=== PATIENT | male | born 1940 | race Caucasian/White ===

== ENCOUNTER 2019-07-20 14:38 | Emergency (ER) | payer MEDICARE, SELFPAY ==
[2019-07-20 15:12] VITALS: BP 151/71; PULSE 81; RESP 20; TEMP 36.4; O2SAT 98
--- NOTE | 2019-07-20 15:27 | ED.URI ---
HPI - URI/Sore Throat General Chief Complaint: Upper Respiratory Infection Stated Complaint: SORE THROAT/COUGH Time Seen by Provider: 07/20/19 15:10 Source: patient Mode of arrival: ambulatory Limitations: no limitations History of Present Illness HPI Narrative: Todd Callahan is an 78 yo male with a PMH of COPD, HTN, pbladder CA, renal stones, who comes to the express care for URI symptoms of sinus drainage and cough. 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 He was seen in ER for afib w RVR . no new meds until recorder information analyzed. Related Data Home Medications Medication Instructions Recorded Confirmed aspirin 81 mg tablet,delayed 81 mg PO DAILY 04/04/19 07/20/19 release losartan 50 mg tablet 50 mg PO DAILY 04/04/19 07/20/19 tamsulosin 0.4 mg capsule 0.4 mg PO DAILY 04/04/19 07/20/19 Glucosamine Chondroitin 2 tablet PO DAILY 04/23/19 07/20/19 ascorbic acid (vitamin C) [Vitamin 1 g PO DAILY 04/23/19 07/20/19 C With Chuyita Hips] brimonidine-timolol [Combigan] 1 drp OPHTHALMIC (EYE) BID 04/23/19 07/20/19 multivitamin 1 cap PO DAILY 04/23/19 07/20/19 Allergies Allergy/AdvReac Type Severity Reaction Status Date / Time theophylline Allergy Unknown Palpitation Verified 05/03/19 15:46 s Review of Systems Review of Systems: Narrative: CONSTITUTIONAL: Denies fever, chills, sweats. EYES: Denies visual changes, redness, discharge. ENT:has rhinorrhea, congestion, sore throat, no otalgia. CARDIOVASCULAR: Denies chest pain, palpitations, edema. RESPIRATORY: Denies dyspnea, wheezing, cough GASTROINTESTINAL: Denies abdominal pain, nausea, vomiting, diarrhea. GENITOURINARY: Denies dysuria, hematuria, abnormal discharge SKIN: Denies rash or itching. NEUROLOGIC: Denies numbness, or focal weakness. PSYCHIATRIC: Denies anxiety or depression. [facility] Past Medical History Medical History Abnormal EKG Arthritis BPH (benign prostatic hyperplasia) Depression History of kidney stones Hypertension Shingles Sleep apnea Tachycardia Surgical History Surgical History History of bladder surgery x2 History of colonoscopy Family History Family History Mother Hypertension Family history of malignant neoplasm Family history of heart disease in male family member before age 55 Father Malignant neoplasm of prostate Family history of chronic obstructive pulmonary disease Sibling Family history of chronic obstructive pulmonary disease Social History Social History Smoking status: Former smoker Alcohol intake: never Gender identity (if verbalized by the patient): Male Comments At time of signature, I agree with nursing past medical, surgical, social and family history. There is no relevant family history pertinent to the presenting complaint. Exam Narrative: Exam Narrative: GENERAL: This is a well-nourished, well-developed patient, in no apparent distress. HEAD: normocephalic, atraumatic. EYES: Sclera clear/white. Vision is grossly intact. EARS: External ears normal, auditory canals clear and without drainage, TMs normal without perforation. Bilateral hearing aids -hearing grossly intact. NOSE: External nose normal with no obvious nasal discharge, nares without redness, no rhinorrhea. THROAT: Mucous membranes moist, posterior pharynx erythema NECK: Neck supple, non-tender without lymphadenopathy, CARDIOVASCULAR: Regular rate and rhythm without murmurs, gallops, or rubs. RESPIRATORY: Clear to auscultation. Breath sounds equal bilaterally. No wheezes, rales, or rhonchi. GASTROINTESTINAL: Abdomen soft, non-tender, nondistended. SKIN: warm, intact with no suspicious l
== END 2019-07-20 15:36 | disposition home or self-care (01) ==
PROVIDERS: Emergency Provider Nurse Practitioner; PCP Family Medicine
DX: J40 Bronchitis, not specified as acute or chronic (principal); J44.9 Chronic obstructive pulmonary disease, unspecified; I10 Essential (primary) hypertension; Z85.51 Personal history of malignant neoplasm of bladder; M19.90 Unspecified osteoarthritis, unspecified site; N40.0 Benign prostatic hyperplasia without lower urinary tract symptoms; F32.9 Major depressive disorder, single episode, unspecified; G47.30 Sleep apnea, unspecified; Z87.891 Personal history of nicotine dependence
CPT/HCPCS: 99213; G0463

== ENCOUNTER 2019-08-06 11:35 | Emergency (ER) | payer MEDICARE, SELFPAY ==
--- NOTE | ~2019-08-06 | XR_ITS ---
XR lumbar spine min 4V 08/06/2019 13:18 Indication: Status post fall. Back pain. Procedure: 5 views of the lumbar spine Comparison: No prior studies for comparison. Findings: There are mild superior endplate compression deformities of T12, L1 and L3, age indetermina te. There is loss of disc height at L5-S1. There is facet hypertrophy. There is atherosclerosis of th e aorta. No evidence for spondylolisthesis. Sacral foramen are symmetric. There are calcifications in the upper abdomen, suspicious for pancreatic calcifications. Impression: 1: Age-indeterminate superior endplate compression deformities of T12, L1 and L3. 2: Mild lumbar spondylosis. Reviewed, dictated and finalized at location A. Impression: 1: Age-indeterminate superior endplate compression deformities of T12, L1 and L 3. 2: Mild lumbar spondylosis.
--- NOTE | ~2019-08-06 | CT_ITS ---
EXAMINATION: CT lumbar spine wo con DATE: 08/06/2019 14:13 INDICATION: Low back pain. Fall. TECHNIQUE: Computed tomography (CT) of the lumbar spine was performed without intravenous contrast. A utomated exposure control and iterative reconstruction technique were employed. The dose-length produ ct was 766.22 mGy-cm. COMPARISON: Lumbar spine radiographs 08/06/2019 FINDINGS: Bone alignment is normal. There is a burst fracture of L3 with 1/5 loss of height and retro pulsion of bone 3 mm into central spinal canal. There is mild chronic anterior wedging of T12 and L1 vertebral bodies. The intervertebral disc heights are normal. The following disc levels are specifica lly discussed: L1-L2: The disc is bulging. There is mild bilateral facet joint osteoarthritis. There is no neural fo raminal stenosis. There is no central canal stenosis. L2-L3: The disc is bulging. There is moderate right and mild left facet joint osteoarthritis. There i s mild right neural foraminal stenosis. There is no central canal stenosis. L3-L4: The disc is bulging. There is mild bilateral facet joint osteoarthritis. There is mild bilater al neural foraminal stenosis. There is mild central canal stenosis. L4-L5: The disc is bulging. There is moderate right and mild left facet joint osteoarthritis. There i s mild bilateral neural foraminal stenosis. There is mild central canal stenosis. L5-S1: The disc is bulging. There is moderate right and mild left facet joint osteoarthritis. There i s mild lateral neural foraminal stenosis. There is mild central canal stenosis. IMPRESSION: 1. Acute L3 burst fracture. 2. Mild lumbar spondylosis. Reviewed, dictated and finalized at location A.
[2019-08-06 12:06] VITALS: BP 145/64; PULSE 70; RESP 18; TEMP 36.7; O2SAT 97
[2019-08-06] MEDS: IBUPROFEN 400 MG TABLET PO (13:06)
--- NOTE | 2019-08-06 15:32 | ED.BACK ---
HPI - Back Pain/Injury General Chief Complaint: Back Pain/Injury Stated Complaint: fall last , low back pain Time Seen by Provider: 08/06/19 12:13 Source: patient Mode of arrival: ambulatory Limitations: no limitations History of Present Illness HPI Narrative: Patient presents with chief complaint of right-sided back pain that began on after slipping on a two-step stepladder and hitting his low back. Patient denies any head impact or injury. Patient states that when he ambulates he has radiating pain down his right leg. Patient denies any loss of sensation or range of motion to his lower extremity. Patient denies any loss of bowel or bladder function or saddle paresthesia. Patient denies any pain to his groin or inability to walk. Patient states he has been taking Tylenol and ibuprofen at home for discomfort. Patient states after waking this morning and laying on the right side he noticed an increase in his pain so he felt that he needed to be evaluated. Patient has a primary care of Dr. López. Related Data Home Medications Medication Instructions Recorded Confirmed aspirin 81 mg tablet,delayed 81 mg PO DAILY 04/04/19 07/20/19 release losartan 50 mg tablet 50 mg PO DAILY 04/04/19 07/20/19 tamsulosin 0.4 mg capsule 0.4 mg PO DAILY 04/04/19 07/20/19 Glucosamine Chondroitin 2 tablet PO DAILY 04/23/19 07/20/19 ascorbic acid (vitamin C) [Vitamin 1 g PO DAILY 04/23/19 07/20/19 C With Chuyita Hips] brimonidine-timolol [Combigan] 1 drp OPHTHALMIC (EYE) BID 04/23/19 07/20/19 multivitamin 1 cap PO DAILY 04/23/19 07/20/19 Allergies Allergy/AdvReac Type Severity Reaction Status Date / Time theophylline Allergy Unknown Palpitation Verified 08/06/19 12:23 s Review of Systems Review of Systems: Narrative: CONSTITUTIONAL: Denies fever, chills, or sweats. EYES: Denies visual changes, redness, or discharge. ENT: Denies rhinorrhea, congestion, sore throat, or otalgia. CARDIOVASCULAR: Denies chest pain, palpitations, or edema. RESPIRATORY: Denies cough or dyspnea. GASTROINTESTINAL: Denies abdominal pain, nausea, vomiting, or diarrhea. BACK: Right-sided pain with radiculopathy SKIN: Denies rash or itching. MUSCULOSKELETAL: Denies back pain, joint pain, or myalgia. NEUROLOGIC: Reports radiculopathy right leg denies headache, numbness, dizziness, or weakness. PSYCHIATRIC: Denies anxiety or depression. [facility] Surgical History Surgical History History of bladder surgery x2 History of colonoscopy Social History Social History Smoking status: Former smoker Alcohol intake: never Gender identity (if verbalized by the patient): Male Exam Narrative: Exam Narrative: GENERAL: Well-appearing, well-nourished, and in no acute distress. HEAD: Normocephalic, atraumatic. No outward signs of injury, laceration, abrasion, hematoma. EYES: PERRLA and EOMI. ENT: Nares clear, no rhinorrhea or epistaxis. Mucous membranes moist. Oropharynx without tonsillar hypertrophy exudate or other lesions. Bilateral TMs pearly becerra nonbulging NECK: Supple. No adenopathy or masses. No carotid bruits or JVD CHEST: Clear to auscultation. No respiratory distress. No wheezes rales or rhonchi HEART: Regular rate and rhythm. BACK: No ecchymosis or abrasions or swelling or step-offs palpated. Tenderness to the low back approximately l4. Diffuse tenderness to palpation to lumbar spine down into right gluteus. Patient able to ambulate with steady gait. Straight leg raise test declined. No tenderness into the groin. EXTREMITIES: Normal range of motion. No edema. SKIN: Warm, dry, no rash. NEURO: No focal deficits. Alert and oriented x3. PSYCH: Normal mood and affect. Course Vital Signs Vital signs: Vital Signs Temperature 98.0 F 08/06/19 12:06 Pulse Rate 70 08/06/19 12:06 Respiratory Rate 18 08/06/19 12:06 Blood Pressur
[2019-08-06 16:12] VITALS: BP 145/74; PULSE 80; RESP 20; TEMP 36.7; O2SAT 98
== END 2019-08-06 16:13 | disposition home or self-care (01) ==
PROVIDERS: Emergency Provider Emergency Medicine; PCP Family Medicine
DX: S32.031A Stable burst fracture of third lumbar vertebra, initial encounter for closed fracture (principal); Z87.891 Personal history of nicotine dependence; M47.816 Spondylosis without myelopathy or radiculopathy, lumbar region; W11.XXXA Fall on and from ladder, initial encounter
CPT/HCPCS: 72110; 72131; 99284; A9270

== ENCOUNTER 2020-03-03 11:07 | Outpatient (CLI) | payer MEDICARE, SELFPAY ==
[2020-03-03 11:50] LABS: Basophils Absolute Auto 0.1 K/mm3 (0.0-0.1); Basophils Percent Auto 0.9 % (0.2-1.2); Eosinophils Absolute Auto 0.2 K/mm3 (0-0.3); Eosinophils Percent Auto 2.9 % (0-4.4); Hemoglobin 13.5 g/dL (14.0-18.0); Immature Granulocyte Absolute 0.03 K/mm3 (0.00-0.031); Immature Granulocyte Percent A 0.4 % (0-0.5); Lymphocytes Absolute Auto 1.88 K/mm3 (0.9-3.2); Lymphocytes Percent Auto 23.5 % (18.3-44.2); Mean Corpuscular HGB Conc 32.9 g/dl (32-36); Mean Corpuscular Volume 91.1 fl (80-100); Mean Platelet Volume 9.3 fl (7.4-10.4); Monocytes Absolute Auto 0.9 K/mm3 (0.1-0.6); Neutrophils Absolute Auto 4.9 K/mm3 (1.3-6.7); Neutrophils Percent Auto 61.3 % (45.5-73.1); Platelet Count Result 237 k/mm3 (150-375); Red Cell Distribution Width 12.5 % (11.5-14.5)
[2020-03-03 12:03] LABS: Anion Gap 5 mmol/L (8-16); Blood Urea Nitrogen 17 mg/dL (9-20); Calcium 9.6 mg/dL (8.4-10.2); Carbon Dioxide 36 mmol/L (22-30); Chloride 99 mmol/L (98-107); Estimated Glomerular Filt Rate > 60; Glucose 117 mg/dL (75-110); Potassium 4.4 mmol/L (3.4-5.0); Sodium 140 mmol/L (137-145)
[2020-03-03 12:33] LABS: Prostate Specific Antigen 2.4 ng/mL (< OR = 4.0)
[2020-03-03 13:05] LABS: Free T4 Free Thyroxine 0.93 ng/mL (0.78-2.19)
== END 2020-03-03 11:08 | disposition home or self-care (01) ==
PROVIDERS: PCP Family Medicine; Visit Provider Family Medicine
DX: I10 Essential (primary) hypertension (principal); E03.9 Hypothyroidism, unspecified; N40.0 Benign prostatic hyperplasia without lower urinary tract symptoms; Z12.5 Encounter for screening for malignant neoplasm of prostate
CPT/HCPCS: 36415; 80048; 84153; 84439; 84443; 85025; G0103

== ENCOUNTER 2020-05-23 14:08 | Emergency (ER) | payer MEDICARE, SELFPAY ==
[2020-05-23 14:24] VITALS: BP 116/60; PULSE 56; RESP 14; TEMP 36.2; O2SAT 99
--- NOTE | 2020-05-23 14:34 | ED.HA ---
HPI - Headache General Chief Complaint: Headache Stated Complaint: headache, cough ( being seen for covid symptom Time Seen by Provider: 05/23/20 14:33 History of Present Illness HPI Narrative: Headache, nausea, mild cough for the past few days. SYmptoms mostly resolved at this time. He is concerned because his is suspected of having COVID-19. No SOB, weakness, fever. Related Data Home Medications Medication Instructions Recorded Confirmed aspirin 81 mg tablet,delayed 81 mg PO DAILY 04/04/19 05/20/20 release losartan 50 mg tablet 50 mg PO DAILY 04/04/19 05/20/20 tamsulosin 0.4 mg capsule 0.4 mg PO DAILY 04/04/19 05/20/20 Glucosamine Chondroitin 2 tablet PO DAILY 04/23/19 05/20/20 ascorbic acid (vitamin C) [Vitamin 1 g PO DAILY 04/23/19 05/20/20 C With Chuyita Hips] brimonidine-timolol [Combigan] 1 drp OPHTHALMIC (EYE) BID 04/23/19 05/20/20 multivitamin 1 cap PO DAILY 04/23/19 05/20/20 Allergies Allergy/AdvReac Type Severity Reaction Status Date / Time theophylline Allergy Unknown Palpitation Verified 05/15/20 12:34 s Review of Systems Review of Systems: All systems reviewed & are unremarkable except as noted in HPI and below Constitutional: Constitutional: Denies fever(s) and Denies weakness ENT: Denies sore throat Cardiovascular: Cardiovascular: Denies chest pain Respiratory: Respiratory: Reports cough and Denies dyspnea Gastrointestinal: Gastrointestinal: Denies abdominal pain, Denies diarrhea, Reports nausea and Denies vomiting Genitourinary: Genitourinary: Denies dysuria Neurologic: Denies dizziness PMF Past Medical History Medical History Abnormal EKG Arthritis BMI 30.0-30.9,adult BPH (benign prostatic hyperplasia) Depression Encounter for screening colonoscopy History of kidney stones Hypertension Hypothyroidism MATT (obstructive sleep apnea) Shingles Sleep apnea Tachycardia Surgical History Surgical History History of bladder surgery x2 History of colonoscopy Family History Family History Mother Hypertension Family history of malignant neoplasm Family history of heart disease in male family member before age 55 Father Malignant neoplasm of prostate Family history of chronic obstructive pulmonary disease Sibling Family history of chronic obstructive pulmonary disease Social History Social History Smoking status: Former smoker Tobacco type: cigarettes Alcohol intake: never 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 Gender identity (if verbalized by the patient): Male Exam Const: General: no acute distress and alert Nutritional Appearance: well nourished Orientation/consciousness: patient oriented x3 HENMT: Head: normal to inspection Eyes: Pupils: Equal, round and reactive pupils present Chest: Chest palpation & inspection: normal inspection of the chest Resp: Effort & Inspection: normal respiratory effort Auscultation: wheezes Cardio: Rate: regular rate Rhythm: regular rhythm GI: GI Palp: Yes Soft to palpation and No Tenderness to palpation present (GI) Skin: General skin exam: normal color Rashes: no rashes Neuro: General: patient oriented x3, moves all extremities, no focal motor deficits and CN's II-XI intact bilaterally Speech: normal speech Gait exam (Neuro): Normal gait present Extrem: General: normal to inspection Course Vital Signs Vital signs: Vital Signs Temperature 36.2 C L 05/23/20 14:24 Pulse Rate 56 L 05/23/20 14:24 Respiratory Rate 14 05/23/20 14:24 Blood Pressure 116/60 05/23/20 14:24 Pulse Oximetry 99 05/23/20 14:24 Temperature 36.2 C L 05/23/20 14:24 Pulse Rate 60 05/23/20 15:56 Respiratory Rate 18 05/23/20 15:56
[2020-05-23 15:56] VITALS: BP 118/68; PULSE 60; RESP 18; O2SAT 99
[2020-05-24 19:30] LABS: SARS-CoV-2 RNA PCR Positive
== END 2020-05-23 15:57 | disposition home or self-care (01) ==
PROVIDERS: Emergency Provider Emergency Medicine; PCP Family Medicine
DX: U07.1 COVID-19 (principal); Z79.82 Long term (current) use of aspirin; M19.90 Unspecified osteoarthritis, unspecified site; N40.0 Benign prostatic hyperplasia without lower urinary tract symptoms; Z87.442 Personal history of urinary calculi; I10 Essential (primary) hypertension; E03.9 Hypothyroidism, unspecified; G47.33 Obstructive sleep apnea (adult) (pediatric); Z87.891 Personal history of nicotine dependence
CPT/HCPCS: 87635; 99283; C9803; U0003

== ENCOUNTER 2020-06-09 09:41 | Outpatient (CLI) | payer MEDICARE, SELFPAY ==
--- NOTE | ~2020-06-09 | MR_ITS ---
EXAMINATION: MR brain/brain stem wo con EXAM DATE: 06/09/2020 10:42 INDICATION: Amnesia, memory loss. TECHNIQUE: Magnetic resonance imaging (MRI) of the brain/brain stem obtained without contrast. Jen al T1, axial diffusion, gradient echo (T2*), T1, T2, FLAIR sequences obtained. Correlation is made t o Head CT 04/23/2019 FINDINGS: There is old left basal ganglia lacunar infarction. There are no areas of restricted diffus ion to suggest acute infarction. There is no acute hemorrhage seen on the T2*, a hemosiderin sensiti ve sequence. No intraparenchymal brain mass lesion. There is moderate periventricular and subcortica l T2/FLAIR signal hyperintensity, nonspecific but probably related to small vessel ischemic disease ( microangiopathy). There is moderate prominence of the sulci and ventricles related to cerebral atro phy. There are dilated perivascular spaces. There are no extra-axial collections. Flow voids are se en in the cerebral arteries on the T2-weighted sequences consistent with their expected patency. Pat ient has had bilateral ocular lens surgery. Soft tissue is unremarkable. IMPRESSION: 1. Punctate old left basal ganglia lacunar infarction. 2. Chronic age related findings. Reviewed, dictated and finalized at location B. [employer]
== END 2020-06-09 09:42 | disposition home or self-care (01) ==
LOC: ANHIMG 09:44
PROVIDERS: PCP Family Medicine; Visit Provider Nurse Practitioner Family
DX: R41.3 Other amnesia (principal); R93.0 Abnormal findings on diagnostic imaging of skull and head, not elsewhere classified
CPT/HCPCS: 70551

== ENCOUNTER 2021-01-07 13:25 | Outpatient (CLI) | payer MEDICARE, SELFPAY ==
--- NOTE | ~2021-01-07 | XR_ITS ---
EXAMINATION: XR hip RT 2V w AP pelvis INDICATION: Right hip pain TECHNIQUE: AP view the pelvis and two views of the right hip are obtained. COMPARISON: None available FINDINGS: Bone alignment is normal. There is no fracture. A bone island is noted in the right ilium. There are phleboliths of the left pelvis. There is moderate osteoarthritis of the hips. IMPRESSION: 1. No acute osseous abnormality. Reviewed, dictated and finalized at location B.
== END 2021-01-07 13:26 | disposition home or self-care (01) ==
LOC: ANHIMG 13:28
PROVIDERS: PCP Family Medicine; Visit Provider Nurse Practitioner Family
DX: S79.911A Unspecified injury of right hip, initial encounter (principal)
CPT/HCPCS: 73502

== ENCOUNTER 2021-01-09 09:44 | Emergency (ER) | payer MEDICARE, SELFPAY ==
[2021-01-09] VITALS (9 sets, daily range): BP systolic 134–187; BP diastolic 71–88; PULSE 62–104; RESP 15–20; TEMP 36.6; O2SAT 92–97
--- NOTE | ~2021-01-09 | XR_ITS ---
EXAMINATION: XR hip BI wo pelvis DATE: 01/09/2021 10:12 INDICATION: Bilateral hip pain. Fall. TECHNIQUE: 2 views of the right hip and 2 views of the left hip were obtained. COMPARISON: Pelvis and right hip radiographs 01/07/2021 FINDINGS: Bone alignment is normal. No fracture. There is mild osteoarthritis of the hips. IMPRESSION: 1. Mild osteoarthritis of the hips. Reviewed, dictated and finalized at location A.
--- NOTE | ~2021-01-09 | CT_ITS ---
EXAMINATION: CT abdomen pelvis wo con DATE: 01/09/2021 10:50 INDICATION: Multiple falls. Unable to bear weight, right hip greater than left hip pain TECHNIQUE: Computed tomography (CT) of the abdomen and pelvis was performed without intravenous contr ast. Automated exposure control and iterative reconstruction technique were employed. Exam dose: 682 .16 mGy-cm total exam DLP. COMPARISON: 01/09/2021 bilateral hip FINDINGS: Emphysematous changes are noted in the lower lung zones. Calcified left lower lobe pulmonar y granuloma and calcified left hilar nodes consistent with old pulmonary granulomatous disease.. Ther e is discoid atelectasis or scarring in the lingula. No pericardial or pleural effusion. Small sliding hiatal hernia. There are numerous scattered hepatic hypoattenuating lesions, the largest approximately 1.4 cm, many too small to definitively characterize. There is calcification associated with one of these hypoatten uating lesions near the posterolateral aspect of the hepatic dome. Hepatic cysts are suspected. The gallbladder is present. No bile duct or pancreatic duct dilatation. Normal splenic size. There are numerous pancreatic calcifications consistent with chronic pancreatitis. No pancreatic mass lesion. Possible small adrenal masses, most likely adenomas. Bilateral renal cysts, measuring up to 3.9 cm on the right, 3.8 cm on the left. An approximately 4.5 mm nonobstructing lower pole right renal calculus. Additional pinpoint lower yue e nonobstructing right renal calculus. Contiguous left lower pole 4.5 mm nonobstructing renal calculi. No ureteral calculus or hydroureteronephrosis. There is extensive calcification of the abdominal aorta and iliac arteries. Femoral artery calcificat ions. No abdominal aortic aneurysm. No intraperitoneal or retroperitoneal or pelvic mass lesion or adenopathy or ascites. Bilateral small fat-containing inguinal hernias. Moderate prostate enlargement. The urinary bladder is unremarkable. Diverticulosis of left colon; no CT evidence of diverticulitis. There is a prominent of fecal material in the rectum and colon. No bowel obstruction, bowel wall thic kening, pneumatosis or intraperitoneal free air. 8 mm sclerotic lesion of right side of L4 vertebral body. Approximately 12 mm sclerotic lesion of right iliac bone. The L4 and right iliac sclerotic lesion may be bone islands. Differential diagnosis includes osteoscl erotic metastatic disease from prostate cancer. Bone scan may be helpful to differentiate these possi bilities as clinically appropriate. No suspicious osteolytic or osteoblastic lesions are noted otherwise. Mild anterior wedge compression fracture deformities of T11, T12, L1. Moderately severe burst fracture deformity of L3. Mild burst fracture deformity of L4. IMPRESSION: Mild anterior wedge compression fracture deformities of T11, T12, L1 Prominent burst fracture of L3 Mild burst fracture of L4 Sclerotic lesions of the L4 vertebral body and right iliac bone, possibly bone islands. Differential diagnosis includes osseous chronic prostate metastases. Emphysema Small sliding hiatal hernia Numerous scattered hypoattenuating lesions of the liver, possibly cysts. Chronic pancreatitis Bilateral renal cysts Bilateral nonobstructive nephrolithiasis Moderate prostate enlargement Diverticulosis of the colon Reviewed, dictated and finalized at Location A. Reviewed, dictated and finalized at location A.
--- NOTE | 2021-01-09 10:32 | ECG_ITS ---
Measurements Intervals [place] Rate: 59 P: 77 [place]: 156 QRS: 40 QRSD: 81 T: 56 QT: 424 QTc: 422 Interpretive Statements SINUS BRADYCARDIA CANNOT RULE OUT SEPTAL INFARCT, AGE INDETERMINATE BASELINE WANDER- V1-V2 ABNORMAL ECG Electronically Signed On 01-09-2021 11:10:24 CDT by Holden Del Rosario D.O.
--- NOTE | 2021-01-09 10:40 | PC.NURSE ---
Pt in CT at this time
--- NOTE | 2021-01-09 10:48 | ED.FALL ---
HPI - Fall General Chief Complaint: Fall Stated Complaint: fall Time Seen by Provider: 01/09/21 09:54 History of Present Illness HPI Narrative: Presents after a fall 3 days ago. Patient marys she was on a slope lost his balance and struck a tree. Ports he hit his low back and right hip. Since then he has had increasing hip pain and occasionally his legs will give out causing him to fall again. Denies striking his head during any of these falls denies any loss of consciousness. Reports his primary area of pain is along his bilateral hips right greater than left achy, constant, worse with trying to lift his legs. He saw his primary care doctor yesterday had plain films which were negative however his pain was getting worse reports he is unable to ambulate today so he came in for evaluation. Related Data Home Medications Medication Instructions Recorded Confirmed aspirin 81 mg tablet,delayed 81 mg PO DAILY 04/04/19 01/08/21 release losartan 50 mg tablet 50 mg PO DAILY 04/04/19 01/08/21 tamsulosin 0.4 mg capsule 0.4 mg PO DAILY 04/04/19 01/08/21 ascorbic acid (vitamin C) [Vitamin 1 g PO DAILY 04/23/19 01/08/21 C With Chuyita Hips] brimonidine-timolol [Combigan] 1 drp OPHTHALMIC (EYE) BID 04/23/19 01/08/21 multivitamin 1 cap PO DAILY 04/23/19 01/08/21 prednisone 10 mg tablet 10 mg PO DAILY 01/08/21 01/08/21 Allergies Allergy/AdvReac Type Severity Reaction Status Date / Time theophylline Allergy Unknown Palpitation Verified 01/09/21 09:57 s Review of Systems Review of Systems: CONSTITUTIONAL: Denies fever, chills, or sweats. EYES: Denies visual changes, redness, or discharge. ENT: Denies rhinorrhea, congestion, sore throat, or otalgia. CARDIOVASCULAR: Denies chest pain, palpitations, or edema. RESPIRATORY: Denies cough or dyspnea. GASTROINTESTINAL: Denies abdominal pain, nausea, vomiting, or diarrhea. GENITOURINARY: Denies dysuria or hematuria. SKIN: Denies rash or itching. MUSCULOSKELETAL: Denies myalgia. NEUROLOGIC: Denies headache, numbness, dizziness, or weakness. PSYCHIATRIC: Denies anxiety or depression. [facility] Past Medical History Medical History Abnormal EKG Arthritis BMI 30.0-30.9,adult BPH (benign prostatic hyperplasia) Depression Encounter for screening colonoscopy History of kidney stones Hypertension Hypothyroidism Multiple renal calculi MATT (obstructive sleep apnea) Shingles Sleep apnea Tachycardia Surgical History Surgical History History of bladder surgery x2 History of colonoscopy Hx of hernia repair Family History Family History Mother Hypertension Family history of malignant neoplasm Family history of heart disease in male family member before age 55 Father Malignant neoplasm of prostate Family history of chronic obstructive pulmonary disease Sibling Family history of chronic obstructive pulmonary disease Social History Social History Tobacco type: cigarettes Alcohol intake: never Substance use: never Substance use type: does not use 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 HEAD: Normocephalic, atraumatic. EYES: PERRLA and EOMI. ENT: Nares clear, no rhinorrhea or epistaxis. Mucous membranes moist. NECK: Supple. No masses. No JVD ABDOMEN: Soft, nontender, nondistended, normal active bowel sounds. EXTREMITIES: Normal range of motion. No edema. Moderate tenderness palpation on the right greater trochanter of the femur minimal tenderness palpation on the left greater trochanter no obvious deformities no open or draining wounds this lower extremity is neurovascularly
[2021-01-09] MEDS: SODIUM CHLORIDE 0.9% IV 500 ML 999 ML IV CONT (11:03)
[2021-01-09] MEDS: KETOROLAC 15 MG/ML VIAL (*BKC) IV PUSH (11:03)
[2021-01-09 11:37] LABS: Add Urine Microscopic? NO; Appearance Urine Clear (Clear); Bilirubin Urine Negative (Negative); Blood Urine Negative (Negative); Color Urine Straw (Yellow); Glucose Urine UA Negative (Negative); Ketones Urine Negative (Negative); Leukocyte Esterase Ur Negative LEU/UL (Negative); Nitrate Urine Negative (Negative); Protein Urine Negative (Negative); Urobilinogen Urine Negative mg/dL (<2.0)
[2021-01-09 11:48] LABS: Basophils Percent Auto 0.2 % (0.2-1.2); Eosinophils Absolute Auto 0.1 K/mm3 (0-0.3); Eosinophils Percent Auto 0.4 % (0-4.4); Hematocrit 41.6 % (42.0-52.0); Hemoglobin 13.1 g/dL (14.0-18.0); Immature Granulocyte Absolute 0.11 K/mm3 (0.00-0.031); Immature Granulocyte Percent A 0.9 % (0-0.5); Lymphocytes Absolute Auto 1.03 K/mm3 (0.9-3.2); Lymphocytes Percent Auto 8.6 % (18.3-44.2); Mean Corpuscular HGB Conc 31.5 g/dl (32-36); Mean Corpuscular Hemoglobin 29.4 pg (26-34); Mean Corpuscular Volume 93.3 fl (80-100); Mean Platelet Volume 9.4 fl (7.4-10.4); Monocytes Absolute Auto 1.5 K/mm3 (0.1-0.6); Monocytes Percent Auto 12.7 % (2.6-8.5); Neutrophils Absolute Auto 9.2 K/mm3 (1.3-6.7); Neutrophils Percent Auto 77.2 % (45.5-73.1); Platelet Count Result 245 k/mm3 (150-375); Red Blood Count 4.46 M/mm3 (4.6-6.20); Red Cell Distribution Width 13.2 % (11.5-14.5); White Blood Count 11.9 K/mm3 (4.5-10.0)
[2021-01-09 11:58] LABS: INR 0.9; Prothrombin Time 12.3 Seconds (11.1-14.7)
[2021-01-09 12:03] LABS: Alanine Aminotransferase 28 U/L (4-50); Albumin Level 3.4 g/dL (3.5-5.1); Alkaline Phosphatase 70 U/L (38-126); Anion Gap 1 mmol/L (8-16); Aspartate Amino Transferase 34 U/L (17-59); Bilirubin,Total 0.8 mg/dL (0.2-1.3); Blood Urea Nitrogen 18 mg/dL (9-20); Calcium 8.8 mg/dL (8.4-10.2); Carbon Dioxide 33 mmol/L (22-30); Chloride 99 mmol/L (98-107); Estimated CRCL calculation 66 ml/min; Estimated Glomerular Filt Rate > 60; Glucose 107 mg/dL (65-110); Potassium 4.2 mmol/L (3.4-5.0); Sodium 133 mmol/L (137-145)
[2021-01-09] MEDS: MORPHINE SULFATE (*CRX) 4 MG/ML INJ IV PUSH ×2 (13:06→15:16)
[2021-01-09] MEDS: ONDANSETRON INJ 4 MG/2 ML VIAL IV PUSH (13:06)
[2021-01-09] MEDS: oxyCODONE/ACETAMINOPHEN (*CRX) 5-325 MG TABLET 1 TABLET PO (16:32)
== END 2021-01-09 19:01 | disposition short-term general hospital (02) ==
PROVIDERS: Emergency Provider Emergency Medicine; PCP Family Medicine
DX: S32.001A Stable burst fracture of unspecified lumbar vertebra, initial encounter for closed fracture (principal); F32.9 Major depressive disorder, single episode, unspecified; I10 Essential (primary) hypertension; E03.9 Hypothyroidism, unspecified; G47.33 Obstructive sleep apnea (adult) (pediatric); F17.210 Nicotine dependence, cigarettes, uncomplicated; W01.10XA Fall on same level from slipping, tripping and stumbling with subsequent striking against unspecified object, initial encounter
CPT/HCPCS: 36415; 73521; 74176; 80053; 81003; 85025; 85610; 85730; 93005; 96361; 96374; 96375; 96376; 99285; A9270; J1885; J2270; J2405; J7040

== ENCOUNTER 2021-02-05 19:34 | Emergency (ER) | payer MEDICARE, SELFPAY ==
--- NOTE | ~2021-02-05 | CT_ITS ---
EXAMINATION: CT abdomen pelvis wo con DATE: 02/05/2021 21:18 INDICATION: Urinary retention. TECHNIQUE: Computed tomography (CT) of the abdomen and pelvis was performed without intravenous contr ast. The dose-length product was 210.14 mGy-cm. Automated exposure control and iterative reconstructi on technique were employed. COMPARISON: CT dated 01/09/2021. FINDINGS: Right lower lobe airspace consolidation. Given that this is new since 01/09/2021 this is lik esha pneumonia rather than pulmonary mass. Heart size normal. No significant pleural or pericardial ef fusion. There are several low-density lesions in the liver, not well characterized without contrast. Consider follow-up CT abdomen with contrast on a nonemergent basis. The spleen, adrenal glands are unremarkab le. There are nonobstructing renal stones. There are low-density lesions in both kidneys, most likely cysts. Gallbladder is present. There is chronic pancreatitis. Nonobstructive bowel gas pattern. Fole y catheter present in the bladder. There is gas in the bladder. Sclerotic lesion in the right ilium. There are compression fractures of L3 and L4. The L4 fracture has progressed since prior examination. Blastic lesion of L4. Colonic diverticulosis without evidence for diverticulitis. IMPRESSION: 1. Interval development of right lower lobe consolidation, most likely pneumonia. Malignancy less fav ored given the short-term interval development. 2: Blastic lesions of the right ilium and L4. Cannot exclude metastatic disease. Compression fracture s of L3 and L4 with progression of L4 fracture since prior study. 3: Nonobstructing bilateral nephrolithiasis. 4: Chronic pancreatitis. Reviewed, dictated and finalized at location A. IMPRESSION: 1. Interval development of right lower lobe consolidation, most likely pneumoni a. Malignancy less favored given the short-term interval development. 2: Blastic lesions of the right ilium and L4. Cannot exclude metastatic disease . Compression fractures of L3 and L4 with progression of L4 fracture since prio r study. 3: Nonobstructing bilateral nephrolithiasis. 4: Chronic pancreatitis.
[2021-02-05 19:39] VITALS: BP 139/77; PULSE 72; RESP 18; TEMP 35.9; O2SAT 94
--- NOTE | 2021-02-05 20:52 | ED.GENADULT ---
HPI - General Adult General Chief complaint: Urogenital-Male Stated complaint: metzger issues Time Seen by Provider: 02/05/21 20:41 History of Present Illness HPI narrative: Patient 80-year-old gentleman who presents the emergency department with chief complaint of decreased urine output. They changed a catheter out at home after he had noticed a low output from his Metzger catheter when the catheter was changed the patient had no significant increased output of urination but did have some small amount of blood-tinged urine. The patient reports no pain denies nausea or vomiting or diarrhea reports that he has been drinking and eating his normal amount. Related Data Home Medications Medication Instructions Recorded Confirmed aspirin 81 mg tablet,delayed 81 mg PO DAILY 04/04/19 02/05/21 release tamsulosin 0.4 mg capsule 0.4 mg PO DAILY 04/04/19 02/05/21 Combigan 1 drp OPHTHALMIC (EYE) BID 04/23/19 02/05/21 multivitamin 1 cap PO DAILY 04/23/19 02/05/21 Glucosamine Complex 1 cap PO DAILY 01/20/21 02/05/21 acetaminophen 650 mg PO Q6H PRN 01/20/21 02/05/21 albuterol sulfate [ProAir HFA] 2 puff INHALATION Q4H PRN 01/20/21 02/05/21 furosemide 40 mg PO DAILY 01/20/21 02/05/21 polyethylene glycol 3350 17 g PO DAILY 01/20/21 02/05/21 Allergies Allergy/AdvReac Type Severity Reaction Status Date / Time theophylline Allergy Unknown Palpitation Verified 02/05/21 12:45 s Review of Systems Review of Systems: A 10 system review of systems was completed on the patient and is negative except for what is stated in the HPI. Nursing and ancillary documentation was reviewed. [facility] Past Medical History Medical History Abnormal EKG Arthritis Atrial flutter BMI 30.0-30.9,adult BPH (benign prostatic hyperplasia) Depression Encounter for screening colonoscopy History of kidney stones Hypertension Hypothyroidism Multiple renal calculi MATT (obstructive sleep apnea) Shingles Sleep apnea Sundowning Sundowning Tachycardia Surgical History Surgical History History of bladder surgery x2 History of colonoscopy Hx of hernia repair Family History Family History Mother Hypertension Family history of malignant neoplasm Family history of heart disease in male family member before age 55 Father Malignant neoplasm of prostate Family history of chronic obstructive pulmonary disease Sibling Family history of chronic obstructive pulmonary disease Social History Social History Smoking packs per day: 1 Smoking cigarettes per day: 20.0 Years smoked: 20 Smoking pack-years: 20.00 Smoking status: Former smoker Tobacco type: cigarettes Second hand tobacco smoke exposure: Yes Alcohol intake: never Substance use: never Substance use type: does not use 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 HEAD: Normocephalic, atraumatic. EYES: PERRLA and EOMI. ENT: Nares clear, no rhinorrhea or epistaxis. Mucous membranes moist. NECK: Supple. CHEST: Clear to auscultation. No respiratory distress. HEART: Regular rate and rhythm. No murmur heard. Normal peripheral pulses. ABDOMEN: Soft, nontender, nondistended, normal active bowel sounds. EXTREMITIES: Normal range of motion. No edema. SKIN: Warm, dry, no rash. NEURO: No focal deficits. Alert and oriented x3. PSYCH: Normal mood and affect. Course Course Emergency Course: Patient's laboratory studies showed evidence of UTI and possible pneumonia. The patient also does show some possible blastic lesions in the pelvis and also at the L4 compress
[2021-02-05 21:12] LABS: Basophils Absolute Auto 0.1 K/mm3 (0.0-0.1); Basophils Percent Auto 0.7 % (0.2-1.2); Eosinophils Absolute Auto 0.1 K/mm3 (0-0.3); Hematocrit 36.2 % (42.0-52.0); Hemoglobin 11.4 g/dL (14.0-18.0); Immature Granulocyte Absolute 0.06 K/mm3 (0.00-0.031); Immature Granulocyte Percent A 0.7 % (0-0.5); Lymphocytes Absolute Auto 1.71 K/mm3 (0.9-3.2); Lymphocytes Percent Auto 19.2 % (18.3-44.2); Mean Corpuscular HGB Conc 31.5 g/dl (32-36); Mean Corpuscular Volume 92.1 fl (80-100); Mean Platelet Volume 8.4 fl (7.4-10.4); Monocytes Absolute Auto 1.3 K/mm3 (0.1-0.6); Monocytes Percent Auto 15.1 % (2.6-8.5); Neutrophils Absolute Auto 5.6 K/mm3 (1.3-6.7); Neutrophils Percent Auto 63.3 % (45.5-73.1); Platelet Count Result 438 k/mm3 (150-375); Red Blood Count 3.93 M/mm3 (4.6-6.20); Red Cell Distribution Width 12.8 % (11.5-14.5); White Blood Count 8.9 K/mm3 (4.5-10.0)
[2021-02-05 21:23] LABS: Alanine Aminotransferase 88 U/L (4-50); Albumin Level 3.1 g/dL (3.5-5.1); Alkaline Phosphatase 134 U/L (38-126); Anion Gap 6 mmol/L (8-16); Aspartate Amino Transferase 85 U/L (17-59); Bilirubin,Total 0.3 mg/dL (0.2-1.3); Blood Urea Nitrogen 18 mg/dL (9-20); Calcium 8.7 mg/dL (8.4-10.2); Carbon Dioxide 32 mmol/L (22-30); Chloride 94 mmol/L (98-107); Estimated CRCL calculation 58 ml/min; Estimated Glomerular Filt Rate > 60; Glucose 122 mg/dL (65-110); Potassium 3.8 mmol/L (3.4-5.0); Sodium 132 mmol/L (137-145)
[2021-02-05] MEDS: SODIUM CHLORIDE 0.9% IV 1,000 ML 999 ML IV CONT (21:25)
[2021-02-05 21:39] LABS: Add Urine Microscopic? YES; Appearance Urine Cloudy (Clear); Bacteria Urine Trace /hpf; Bilirubin Urine Negative (Negative); Blood Urine 3+ (Negative); Color Urine Red (Yellow); Glucose Urine UA Negative (Negative); Ketones Urine Negative (Negative); Leukocyte Esterase Ur 2+ LEU/UL (Negative); Mucus Urine Few /lpf; Nitrate Urine Negative (Negative); Protein Urine 2+ mg/dL (Negative); RBC Urine >75 /hpf (0-2); Specific Grav Ur 1.024 (1.001-1.035); Squamous Epithelial Cell Urine Few /hpf (Few); Urobilinogen Urine Negative mg/dL (<2.0); WBC Urine >75 /hpf
[2021-02-05] MEDS: levoFLOXacin 500 MG TABLET PO (22:45)
[2021-02-05 23:06] VITALS: BP 146/86; PULSE 81; RESP 16; O2SAT 94
== END 2021-02-05 23:06 | disposition home or self-care (01) ==
PROVIDERS: Emergency Provider Emergency Medicine; PCP Family Medicine
DX: N39.0 Urinary tract infection, site not specified (principal); J18.9 Pneumonia, unspecified organism; I48.92 Unspecified atrial flutter; N40.0 Benign prostatic hyperplasia without lower urinary tract symptoms; E03.9 Hypothyroidism, unspecified; G47.33 Obstructive sleep apnea (adult) (pediatric); F05 Delirium due to known physiological condition; M19.90 Unspecified osteoarthritis, unspecified site; Z87.442 Personal history of urinary calculi; Z79.82 Long term (current) use of aspirin; Z79.01 Long term (current) use of anticoagulants; Z87.891 Personal history of nicotine dependence; K86.1 Other chronic pancreatitis; N20.0 Calculus of kidney; M48.56XA Collapsed vertebra, not elsewhere classified, lumbar region, initial encounter for fracture; M89.9 Disorder of bone, unspecified
CPT/HCPCS: 36415; 74176; 80053; 81001; 85025; 87077; 87086; 87088; 87186; 96360; 99284; A9270; J7030

== ENCOUNTER 2021-06-05 14:14 | Emergency (ER) | payer MEDICARE, SELFPAY ==
[2021-06-05 14:21] VITALS: BP 174/78; PULSE 111; RESP 18; TEMP 36.3; O2SAT 96
--- NOTE | 2021-06-05 14:41 | ED.MALEGU ---
HPI - Male Genitourinary General Chief complaint: Urogenital-Male Stated complaint: not producing much urine, has catheter in place Time Seen by Provider: 06/05/21 14:33 Source: patient Mode of arrival: ambulatory Limitations: no limitations History of Present Illness HPI Narrative: Patient is an 80-year-old male complaining of his Mendoza catheter not draining started today. Patient states that the Mendoza catheter was just replaced with a new one today by home health nurse. Patient states that while he was in the waiting room it started to drain. Patient has no other complaints. Related Data Home Medications Medication Instructions Recorded Confirmed aspirin 81 mg tablet,delayed 81 mg PO DAILY 04/04/19 02/05/21 release tamsulosin 0.4 mg capsule 0.4 mg PO DAILY 04/04/19 02/05/21 Combigan 1 drp OPHTHALMIC (EYE) BID 04/23/19 02/05/21 multivitamin 1 cap PO DAILY 04/23/19 02/05/21 Glucosamine Complex 1 cap PO DAILY 01/20/21 02/05/21 acetaminophen 650 mg PO Q6H PRN 01/20/21 02/05/21 albuterol sulfate [ProAir HFA] 2 puff INHALATION Q4H PRN 01/20/21 02/05/21 furosemide 40 mg PO DAILY 01/20/21 02/05/21 polyethylene glycol 3350 17 g PO DAILY 01/20/21 02/05/21 Allergies Allergy/AdvReac Type Severity Reaction Status Date / Time theophylline Allergy Unknown Palpitation Verified 02/05/21 12:45 s Review of Systems Review of Systems: All systems reviewed & are unremarkable except as noted in HPI and below Constitutional: Constitutional: Denies body ache(s), Denies chills, Denies excessive sweating, Denies fatigue, Denies fever(s), Denies headache(s), Denies lethargy, Denies malaise, Denies weakness and Denies weight loss Eyes: Eyes: Denies blurry vision, Denies change in vision and Denies loss of vision ENT: Denies dizziness, Denies ear discharge, Denies headache(s), Denies lip swelling, Denies epistaxis, Denies nasal congestion, Denies neck pain, Denies throat swelling and Denies tongue swelling Cardiovascular: Cardiovascular: Denies chest pain, Denies chest pain at rest, Denies chest pain with activity, Denies diaphoresis, Denies rapid heart rate, Denies edema, Denies irregular heart rhythm, Denies lightheadedness, Denies palpitations, Denies dyspnea and Denies dyspnea on exertion Respiratory: Respiratory: Denies chest congestion, Denies cough, Denies hemoptysis, Denies dyspnea and Denies dyspnea on exertion Gastrointestinal: Gastrointestinal: Denies abdominal pain, Denies melena, Denies hematochezia, Denies diarrhea, Denies nausea, Denies vomiting and Denies hematemesis Musculoskeletal: Musculoskeletal: Denies abnormal gait, Denies deformity, Denies joint swelling, Denies limited range of motion, Denies neck pain and Denies numbness Neurologic: Denies Abnormal speech present, Denies abnormal gait, Denies confusion, Denies dizziness, Denies headache(s), Denies focal weakness, Denies loss of vision, Denies numbness, Denies Other visual disturbances, Denies Sensory deficit (Neuro) and Denies weakness Psychiatric: Psychiatric: Denies confusion, Denies depression, Denies auditory hallucinations, Denies homicidal ideation and Denies suicidal ideation Endocrine: Endocrine: Denies cold intolerance, Denies excessive sweating, Denies fatigue, Denies heat intolerance and Denies palpitations Hematologic/Lymphatic: Hematologic/Lymphatic: Denies easy bleeding and Denies easy bruising Allergic/Immunologic: Allergic/Immunologic: Denies lip swelling, Denies throat swelling and Denies tongue swelling PMFSH Past Medical History Medical History Abnormal EKG Arthritis Atrial flutter BMI 30.0-30.9,adult BPH (benign prostatic hyperplasia) Depression Encounter for screening colonoscopy History of kidney stones Hypertension Hypothyroidism Multiple renal calculi MATT (obstructive sleep apnea) Shingles Sleep apnea Sundowning Sundowning Tachycardia Surgical History Surgical History (Review
[2021-06-05 16:03] LABS: Add Urine Microscopic? YES; Appearance Urine Clear (Clear); Bilirubin Urine Negative (Negative); Blood Urine 1+ (Negative); Color Urine Yellow (Yellow); Glucose Urine UA Negative (Negative); Ketones Urine Negative (Negative); Leukocyte Esterase Ur 1+ LEU/UL (Negative); Mucus Urine Rare /lpf; Nitrate Urine Negative (Negative); Protein Urine Negative (Negative); Specific Grav Ur 1.009 (1.001-1.035); Urobilinogen Urine Negative mg/dL (<2.0); WBC Urine 21-30 /hpf
[2021-06-05 16:50] VITALS: BP 135/88; PULSE 88; RESP 19; O2SAT 97
== END 2021-06-05 16:50 | disposition home or self-care (01) ==
PROVIDERS: Emergency Provider Emergency Medicine; PCP Family Medicine
DX: T83.9XXA Unspecified complication of genitourinary prosthetic device, implant and graft, initial encounter (principal); N39.0 Urinary tract infection, site not specified
CPT/HCPCS: 81001; 87086; 99283

== ENCOUNTER 2021-06-29 09:12 | Inpatient (IN) | payer MEDICARE, SELFPAY ==
[2021-06-29] VITALS (50 sets, daily range): BP systolic 96–129; BP diastolic 45–92; PULSE 78–155; RESP 14–25; TEMP 36.4–36.9; O2SAT 90–99; BMI 27.3
--- NOTE | ~2021-06-29 | XR_ITS ---
EXAMINATION: XR chest 2V DATE: 06/29/2021 09:56 INDICATION: Weakness. Internal bleeding. TECHNIQUE: frontal and lateral views of the chest were obtained. COMPARISON: Chest radiograph dated 04/23/[address] dated 08/10/2018 FINDINGS: Emphysema with chronic bullous changes and pleural parenchymal scarring at the bilateral apices. Calc ified nodule at the left lung base and calcified mediastinal lymph nodes consistent with old granulom atous disease. Mild linear atelectasis/scarring at the lingula best appreciated in the lateral projec tion. No other airspace opacities, pulmonary edema, pleural effusion or pneumothorax. The cardiomedia stinal silhouette is normal. Coronary artery calcification versus stenting. Mild thoracic spondylosis with chronic mild anterior wedging of a few mid and lower thoracic vertebral bodies. Couple old righ t rib fractures. IMPRESSION: 1. Emphysema with chronic scarring at the lingula and bilateral apices. Reviewed, dictated and finalized at location A. AGING OPERATOR
--- NOTE | 2021-06-29 09:17 | ECG_ITS ---
Measurements Intervals [place] Rate: 89 P: 80 [place]: 180 QRS: 41 QRSD: 68 T: 74 QT: 328 QTc: 401 Interpretive Statements SINUS RHYTHM CANNOT RULE OUT SEPTAL INFARCT, AGE INDETERMINATE BORDERLINE ST-T WAVE ABNORMALITY- DIFFUSE LEADS BASELINE WANDER- II, III ABNORMAL ECG Electronically Signed On 06-29-2021 11:31:31 WHEEL ALIGNMENT TECHNICIAN by Holden Del Rosario D.O.
[2021-06-29 09:37] LABS: Basophils Absolute Auto 0.1 K/mm3 (0.0-0.1); Basophils Percent Auto 0.6 % (0.2-1.2); Eosinophils Percent Auto 0.1 % (0-4.4); Hematocrit 34.6 % (42.0-52.0); Hemoglobin 10.8 g/dL (14.0-18.0); Immature Granulocyte Absolute 0.07 K/mm3 (0.00-0.031); Immature Granulocyte Percent A 0.6 % (0-0.5); Lymphocytes Absolute Auto 1.07 K/mm3 (0.9-3.2); Lymphocytes Percent Auto 9.4 % (18.3-44.2); Mean Corpuscular HGB Conc 31.2 g/dl (32-36); Mean Corpuscular Volume 92.8 fl (80-100); Mean Platelet Volume 9.8 fl (7.4-10.4); Monocytes Absolute Auto 0.7 K/mm3 (0.1-0.6); Monocytes Percent Auto 6.4 % (2.6-8.5); Neutrophils Absolute Auto 9.4 K/mm3 (1.3-6.7); Neutrophils Percent Auto 82.9 % (45.5-73.1); Platelet Count Result 292 k/mm3 (150-375); Red Blood Count 3.73 M/mm3 (4.6-6.20); Red Cell Distribution Width 13.8 % (11.5-14.5); White Blood Count 11.4 K/mm3 (4.5-10.0)
--- NOTE | 2021-06-29 09:40 | ED.WEAKNESS ---
HPI - Weakness General Chief complaint: Weakness <Casie Raymond PA-C - Last Filed: 06/29/21 11:04> Stated complaint: FEELING ILL <CLAUDE Kapoor Last Filed: 06/29/21 11:04> Time Seen by Provider: 06/29/21 09:18 <Casie Raymond PA-C - Last Filed: 06/29/21 11:04> Source: patient and EMS <CLAUDE Kapoor Last Filed: 06/29/21 11:04> Mode of arrival: EMS <CLAUDE Kapoor Last Filed: 06/29/21 11:04> Limitations: other (hearing impairment) <CLAUDE Kapoor Last Filed: 06/29/21 11:04> History of Present Illness HPI Narrative: This is a 80 year old male that presents to the ER for dark stools present since yesterday. Also reports an episode of vomiting today with coffee ground emesis. He is currently on Coumadin for atrial fibrillation. Reports nausea. Denies fever, chest pain, shortness of breath, or abdominal pain. <CLAUDE Kapoor Last Filed: 06/29/21 11:04> Related Data Home medications: Home Medications Medication Instructions Recorded Confirmed aspirin 81 mg tablet,delayed 81 mg PO DAILY 04/04/19 06/29/21 release tamsulosin 0.4 mg capsule 0.4 mg PO DAILY 04/04/19 06/29/21 Combigan 1 drp OPHTHALMIC (EYE) BID 04/23/19 02/05/21 multivitamin 1 cap PO DAILY 04/23/19 02/05/21 Glucosamine Complex 1 cap PO DAILY 01/20/21 02/05/21 acetaminophen 650 mg PO Q6H PRN 01/20/21 02/05/21 albuterol sulfate [ProAir HFA] 2 puff INHALATION Q4H PRN 01/20/21 02/05/21 furosemide 40 mg PO DAILY 01/20/21 06/29/21 polyethylene glycol 3350 17 g PO DAILY 01/20/21 02/05/21 <CLAUDE Kapoor Last Filed: 06/29/21 11:04> Allergies/Adverse reactions: Allergies Allergy/AdvReac Type Severity Reaction Status Date / Time theophylline Allergy Unknown Palpitation Verified 02/05/21 12:45 s <Casie Raymond PA-C - Last Filed: 06/29/21 11:04> Review of Systems Review of Systems: CONSTITUTIONAL: Denies fever CARDIOVASCULAR: Denies chest pain, or edema. RESPIRATORY: Denies dyspnea. GASTROINTESTINAL: Reports nausea, vomiting and diarrhea. Denies abdominal pain <Casie Raymond PA-C - Last Filed: 06/29/21 11:04> All systems reviewed & are unremarkable except as noted in HPI and below <Casie Raymond PA-C - Last Filed: 06/29/21 11:04> [facility] Past Medical History Medical History: Medical History (Updated 06/29/21 @ 13:32 by Emmanuel Smith MD) Abnormal EKG Arthritis Atrial flutter Bladder spasms BMI 30.0-30.9,adult BPH (benign prostatic hyperplasia) Depression Emphysema lung Encounter for screening colonoscopy History of kidney stones Hypertension Hypothyroidism Multiple renal calculi MATT (obstructive sleep apnea) Shingles Sleep apnea owning Sundowning Tachycardia <Casie Raymond PA-C - Last Filed: 06/29/21 11:04> Surgical History Surgical History: Surgical History History of bladder surgery x2 History of colonoscopy Hx of hernia repair <Casie Raymond PA-C - Last Filed: 06/29/21 11:04> Family History Family History: Family History Mother Hypertension Family history of malignant neoplasm Family history of heart disease in male family member before age 55 Father Malignant neoplasm of prostate Family history of chronic obstructive pulmonary disease Sibling Family history of chronic obstructive pulmonary disease <Casie Raymond PA-C - Last Filed: 06/29/21 11:04> Social History Social History: Social History Social History: w quit rr 2c Smoking packs per day: 1 Smoking cigarettes per day: 20.0 Years smoked: 20 Smoking pack-years: 20.00 Smoking status: Former smoker Tobacco type: cigarettes Second hand tobacco smoke exposure: Yes Alcohol intake: never Substance us
[2021-06-29 09:48] LABS: INR 2.6; Partial Thromboplastin Time 30.8 SECONDS (22.3-36.8); Prothrombin Time 26.8 Seconds (11.1-14.7)
[2021-06-29 09:49] LABS: Alanine Aminotransferase 21 U/L (4-50); Alkaline Phosphatase 67 U/L (38-126); Anion Gap 5 mmol/L (8-16); Aspartate Amino Transferase 26 U/L (17-59); Bilirubin,Total 0.4 mg/dL (0.2-1.3); Blood Urea Nitrogen 51 mg/dL (9-20); Calcium 10.1 mg/dL (8.4-10.2); Carbon Dioxide 30 mmol/L (22-30); Chloride 105 mmol/L (98-107); Estimated CRCL calculation 48 ml/min; Estimated Glomerular Filt Rate > 60; Glucose 179 mg/dL (65-110); Potassium 4.1 mmol/L (3.4-5.0); Sodium 140 mmol/L (137-145)
--- NOTE | 2021-06-29 09:57 | PC.NURSE ---
pt.received 1 L NS IV from EMS bag. sintia ERP rafy
[2021-06-29] MEDS: METOPROLOL TARTRATE INJ 5 MG/5 ML VIAL IV PUSH (10:04)
[2021-06-29 10:05] LABS: Troponin I 0.015 ng/mL (0.000-0.034)
[2021-06-29 10:16] LABS: Add Urine Microscopic? YES; Appearance Urine Clear (Clear); Bacteria Urine Trace /hpf; Bilirubin Urine Negative (Negative); Blood Urine 1+ (Negative); Calcium Oxalate Crystals Urine Present /hpf; Color Urine Yellow (Yellow); Glucose Urine UA Negative (Negative); Ketones Urine Trace mg/dL (Negative); Leukocyte Esterase Ur Negative LEU/UL (Negative); Mucus Urine Rare /lpf; Nitrate Urine Negative (Negative); Protein Urine Negative (Negative); Specific Grav Ur 1.019 (1.001-1.035); Squamous Epithelial Cell Urine Rare /hpf (Few); Urobilinogen Urine Negative mg/dL (<2.0)
--- NOTE | 2021-06-29 10:51 | ECG_ITS ---
Measurements Intervals [place] Rate: 118 P: 58 [place]: 164 QRS: -3 QRSD: 77 T: 75 QT: 363 QTc: 509 Interpretive Statements SINUS TACHYCARDIA VENTRICULAR PREMATURE COMPLEX ANTEROSEPTAL INFARCT, AGE INDETERMINATE ST-T WAVE ABNORMALITY IN ANTEROLATERAL LEADS- CONSIDER ISCHEMIA ABNORMAL ECG Electronically Signed On 06-29-2021 11:23:17 DECOMMISSIONING WELL SITE MANAGER by Hloden Del Rosario D.O.
[2021-06-29 11:29] LABS: SARS-CoV-2 RNA PCR Negative
--- NOTE | 2021-06-29 12:51 | PC.NURSE ---
Pt. requesting medications for RICE. ERP notified.
--- NOTE | 2021-06-29 13:21 | WPDGICN ---
Assessment and Plan Assessment and plan (1) Acute GI bleeding: Code(s): K92.2 - Gastrointestinal hemorrhage, unspecified Status: Acute Assessment and Plan: he began seeing black tarry stools 3 days ago. He has been on Coumadin for several months for what he states is atrial fibrillation. The chart indicates atrial flutter. He denies any prior history of ulcers or GI bleeding. Will need to reverse his INR, or least let it drift below 1.8 before we can do endoscopy without risk of bleeding. (2) Hematemesis: Code(s): K92.0 - Hematemesis Status: Acute Assessment and Plan: he had 1 episode of emesis of coffee-ground material early this morning. He denies having difficulty with swallowing. He denies chronic heartburn. He states that he has lost weight and his appetite has dropped off (3) Atrial flutter: Qualifiers: Atrial flutter type: unspecified Qualified Code(s): I48.92 - Unspecified atrial flutter Code(s): I48.92 - Unspecified atrial flutter Status: Acute Assessment and Plan: EKG today shows sinus rhythm. He has been on Coumadin and his INR is therapeutic (4) Emphysema lung: Code(s): J43.9 - Emphysema, unspecified Status: Chronic (5) Multiple renal calculi: Code(s): N20.0 - Calculus of kidney Status: Inactive Assessment and Plan: over the last several years he had had multiple admissions for renal calculi. 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 I would like to give him some vitamin K to help lower his INR in order to proceed with EGD GI Consult Note Consult date/time: 06/29/21 13:21 HPI: Todd Callahan is a 80 year old male Present to the emergency room this morning complaining of weakness. Also he vomited dark material that looked like coffee grounds. He states that since Tuesday he has been passing black stools. He has not had abdominal pain but admits that his appetite has not been very good lately. He thinks he has lost some weight. He denies dysphagia and denies heartburn. He does not think that he has ever had an ulcer. He does not take any NSAIDs. He is on Coumadin for atrial fibrillation which she states was diagnosed not too long ago . He has never had colon problems such as colitis polyps or diverticulitis. He had are hernia repair with mesh placed a couple of years ago. Review of Systems Review of Systems: All systems reviewed & are unremarkable except as noted in HPI and below PMFSH Past Medical History Medical History (Updated 06/29/21 @ 13:32 by Emmanuel Smith MD) Abnormal EKG Arthritis Atrial flutter Bladder spasms BMI 30.0-30.9,adult BPH (benign prostatic hyperplasia) Depression Emphysema lung Encounter for screening colonoscopy History of kidney stones Hypertension Hypothyroidism Multiple renal calculi MATT (obstructive sleep apnea) Shingles Sleep apnea Sundowning Sundowning Tachycardia Surgical History Surgical History History of bladder surgery x2 History of colonoscopy Hx of hernia repair Family History Family History Mother Hypertension Family history of malignant neoplasm Family history of heart disease in male family member before age 55 Father Malignant neoplasm of prostate Family history of chronic obstructive pulmonary disease Sibling Family history of chronic obstructive pulmonary disease Social History Social History Social History: w quit rr 2c Smoking packs per day: 1 Smoking cigarettes per day: 20.0 Years smoked: 20 Smoking pack-years: 20.00 Smoking status: Former smoker
--- NOTE | 2021-06-29 13:23 | PM.IMHP ---
H&P: HPI History of Present Illness Date/Time: 06/29/21 13:23 this is a 80-year-old male patient who has a history of atrial fibrillation versus atrial flutter and has been on Coumadin for several months. The patient came in today with complaints of tarry stools for the last 3 days. GI has been consulted and recommended that either the INR be reversed or diff down to 1.8 prior to endoscopy. The patient had a coffee-ground emesis early this morning. His H&H was initially 10.834.6 it is now 9.0 and 28.8. The patient was given IV Lopressor in the emergency room and Rocephin. He was also started on IV Protonix. The patient recently was treated for UTI and had been on on Macrobid and therefore he was switched to Rocephin for his urinary tract infection. The patient is being admitted to observation status date of service 06/29/2021. Chief Complaint: GI bleed Review of Systems Review of Systems: All systems reviewed & are unremarkable except as noted in HPI and below Constitutional: Constitutional: Reports as per HPI and Reports no additional constitutional complaints Eyes: Eyes: Reports as per HPI and Reports no additional eye complaints ENT: Reports system reviewed and no additional complaints, except as documented and Reports Normal hearing present Cardiovascular: Cardiovascular: Reports no additional cardiovascular complaints Respiratory: Respiratory: Reports no additional respiratory complaints and Reports no additional respiratory complaints Gastrointestinal: Gastrointestinal: Reports as per HPI and Reports no additional gastrointestinal complaints Musculoskeletal: Musculoskeletal: Reports no additional musculoskeletal complaints Integumentary/Breasts: Skin/Breast: Reports system reviewed and no additional complaints, except as docu and Reports as per HPI Neurologic: Reports system reviewed and no additional complaints, except as documented, Reports as per HPI and Reports Normal hearing present Psychiatric: Psychiatric: Reports no additional psychiatric complaints and Reports as per HPI Endocrine: Endocrine: Reports no additional endocrine complaints Hematologic/Lymphatic: Hematologic/Lymphatic: Reports no additional hematologic/lymphatic complaints Allergic/Immunologic: Allergic/Immunologic: Reports no additional allergic/immunologic complaints [facility] Past Medical History Medical History (Updated 06/29/21 @ 16:10 by Cyndy Barrera NP) Abnormal EKG Arthritis Atrial flutter Bladder spasms BMI 30.0-30.9,adult BPH (benign prostatic hyperplasia) Depression Emphysema lung Encounter for screening colonoscopy History of kidney stones Hypertension Hypothyroidism Multiple renal calculi MATT (obstructive sleep apnea) Shingles Sleep apnea Sundowning Sundowning Tachycardia Surgical History Surgical History History of bladder surgery x2 History of colonoscopy Hx of hernia repair Family History Family History Mother Hypertension Family history of malignant neoplasm Family history of heart disease in male family member before age 55 Father Malignant neoplasm of prostate Family history of chronic obstructive pulmonary disease Sibling Family history of chronic obstructive pulmonary disease Social History Social History (Updated 06/29/21 @ 15:54 by Cyndy Barrera NP) Social History: THE PATIENT LIVES WITH HIS . The patient quit smoking many years ago. He is retired from the [employer]. He has 2 children. The is the durable power insurance attorney for healthcare. Code status DNR Smoking packs per day: 1 Smoking cigarettes per day: 20.0 Years smoked: 20 Smoking pack-years: 20.00 Smoking status: Former smoker Tobacco type: cigarettes Second hand tobacco smoke exposure: Yes Alcohol intake: never Substance use: never Substance use type: does
[2021-06-29] MEDS: PHYTONADIONE 5 MG TABLET PO (14:20)
[2021-06-29 14:37] LABS: Hematocrit 28.8 % (42.0-52.0)
[2021-06-29 14:47] LABS: INR 2.6; Prothrombin Time 27.5 Seconds (11.1-14.7)
[2021-06-29] MEDS: PANTOPRAZOLE SODIUM IV 40 MG VIAL IV PUSH ×2 (15:14→21:58)
--- NOTE | 2021-06-29 16:47 | PC.NURSE ---
call pt. Klaudia w/ updates.
[2021-06-29 19:01] LABS: Hematocrit 25.8 % (42.0-52.0); Hemoglobin 8.2 g/dL (14.0-18.0)
--- NOTE | 2021-06-29 19:18 | PC.NURSE ---
called KELLY Barrera, informed of decreasing H&H. STATED TO CALL AFTER NEXT LAB DRAW, WILL HAVE TO TRANSFUSE IF BELOW 7
--- NOTE | 2021-06-29 20:25 | ADMGEN ---
This patient, Todd Callahan, was admitted to Medical Room 247-. Patient/family oriented to hospital policies and general routines including ID bracelet, bed and alarms, visiting hours, pain management, procedures, bathroom and other care routines, personal items, smoking policy, room service/diet, and visiting hours. Information on how to activate the Rapid Response Team has been discussed. Patient/Family are encouraged to report perceived risks to care and to ask questions if they do not understand what they are told or what they should do.
[2021-06-29] MEDS: DIGOXIN INJ 250 MCG/ML 2 ML AMP (*BKC) 125 MCG IV PUSH ×2 (23:18→23:45)
[2021-06-29] MEDS: ACETAMINOPHEN 325 MG TABLET 650 MG PO (23:21)
[2021-06-29] MEDS: SODIUM CHLORIDE 0.9% IV 500 ML IV CONT (23:47)
[2021-06-30] VITALS (29 sets, daily range): BP systolic 88–133; BP diastolic 48–80; PULSE 65–145; RESP 16–22; TEMP 35.9–36.9; O2SAT 94–100
[2021-06-30 00:06] LABS: Hematocrit 24.2 % (42.0-52.0); Hemoglobin 7.8 g/dL (14.0-18.0)
[2021-06-30 00:22] LABS: Troponin I 0.022 ng/mL (0.000-0.034)
--- NOTE | 2021-06-30 00:47 | PC.NURSE ---
MOHSEN OROURKE NP IN ROOM ASSESSING PT. WILL PUT IN ORDERS. HR REMAINS IN 150'S
--- NOTE | 2021-06-30 01:04 | PC.NURSE ---
REPORT CALLED TO JASON PIZANO AND PT TRANSFERRED TO ROOM 214 PER BED. NOTIFIED
--- NOTE | 2021-06-30 01:18 | PC.NURSE ---
This patient, Todd Callahan, was received from [[id number] ] on 06/30/21 at 0118. Patient/family oriented to unit policies and routines
[2021-06-30] MEDS: AMIODARONE 360 MG/D5W 200 ML 360 MG/200 ML BAG 33.33 MG IV CONT (02:19)
--- NOTE | 2021-06-30 02:43 | PC.NURSE ---
On 06/30/[address] Richards for patient bp 89/50 with heart rate of 135. Instructed to continue to hang amiodorone drip as ordered.
[2021-06-30 04:33] LABS: IFOB Positive Control Positive; Immunochemical Fecal Occult Bl Positive (N)
[2021-06-30 04:55] LABS: Basophils Percent Auto 0.3 % (0.2-1.2); Eosinophils Percent Auto 0.1 % (0-4.4); Immature Granulocyte Absolute 0.07 K/mm3 (0.00-0.031); Immature Granulocyte Percent A 0.5 % (0-0.5); Lymphocytes Absolute Auto 2.12 K/mm3 (0.9-3.2); Lymphocytes Percent Auto 16.6 % (18.3-44.2); Mean Corpuscular HGB Conc 31.1 g/dl (32-36); Mean Corpuscular Hemoglobin 29.1 pg (26-34); Mean Corpuscular Volume 93.7 fl (80-100); Mean Platelet Volume 10.2 fl (7.4-10.4); Monocytes Absolute Auto 1.1 K/mm3 (0.1-0.6); Monocytes Percent Auto 8.9 % (2.6-8.5); Neutrophils Absolute Auto 9.4 K/mm3 (1.3-6.7); Neutrophils Percent Auto 73.6 % (45.5-73.1); Platelet Count Result 213 k/mm3 (150-375); Red Blood Count 2.23 M/mm3 (4.6-6.20); Red Cell Distribution Width 14.2 % (11.5-14.5); White Blood Count 12.8 K/mm3 (4.5-10.0)
[2021-06-30 05:00] LABS: Hemoglobin 6.5 g/dL (14.0-18.0)
[2021-06-30 05:01] LABS: Hematocrit 20.9 % (42.0-52.0)
[2021-06-30] MEDS: TUBING, BLOOD PLUM PUMP TUBING 1 EACH XX (05:05)
[2021-06-30] MEDS: SODIUM CHLORIDE 0.9% IV 250 ML 30 ML IV CONT (05:05)
[2021-06-30 05:09] LABS: INR 2.7; Prothrombin Time 27.6 Seconds (11.1-14.7)
[2021-06-30 05:10] LABS: Partial Thromboplastin Time 34.4 SECONDS (22.3-36.8)
[2021-06-30 05:12] LABS: Alanine Aminotransferase 18 U/L (4-50); Albumin Level 3.2 g/dL (3.5-5.1); Alkaline Phosphatase 50 U/L (38-126); Anion Gap 5 mmol/L (8-16); Aspartate Amino Transferase 25 U/L (17-59); Bilirubin,Total 0.3 mg/dL (0.2-1.3); Blood Urea Nitrogen 52 mg/dL (9-20); Carbon Dioxide 26 mmol/L (22-30); Chloride 109 mmol/L (98-107); Estimated CRCL calculation 52 ml/min; Estimated Glomerular Filt Rate > 60; Glucose 163 mg/dL (65-110); Lactate Dehydrogenase 301 U/L (313-618); Magnesium 1.8 mg/dL (1.6-2.3); Potassium 3.8 mmol/L (3.4-5.0); Sodium 140 mmol/L (137-145)
[2021-06-30 05:15] LABS: Lactic Acid Reflex 2.2 mmol/L (0.7-2.1)
[2021-06-30 05:42] LABS: Hemoglobin A1C 6.2 % (<5.7)
[2021-06-30 07:52] LABS: Reflex Lactic Acid Yes or No Add Lactic
[2021-06-30] MEDS: AMIODARONE 360 MG/D5W 200 ML 360 MG/200 ML BAG 16.67 MG IV CONT ×2 (07:54→17:27)
[2021-06-30] MEDS: traMADol HCL (*CRX) 50 MG TABLET PO (07:57)
[2021-06-30] MEDS: DIGOXIN TAB 125 MCG TABLET PO (07:58)
[2021-06-30] MEDS: CITALOPRAM HYDROBROMIDE 20 MG TABLET PO (07:59)
[2021-06-30] MEDS: METOPROLOL SUCCINATE EXT REL 100 MG TABCR 200 MG PO (07:59)
[2021-06-30] MEDS: LORATADINE 10 MG TABLET PO (07:59)
[2021-06-30] MEDS: FUROSEMIDE 40 MG TABLET PO (07:59)
[2021-06-30] MEDS: MULTIVITAMINS THERAPEUTIC TAB (*BKC) 1 TABLET PO (07:59)
[2021-06-30] MEDS: TAMSULOSIN HCL 0.4 MG CAPSULE PO (07:59)
[2021-06-30] MEDS: GABAPENTIN 300 MG CAPSULE PO (07:59)
[2021-06-30] MEDS: PANTOPRAZOLE SODIUM IV 40 MG VIAL IV PUSH ×2 (08:00→20:42)
[2021-06-30 09:08] LABS: Lactic Acid 2.6 mmol/L (0.7-2.1)
--- NOTE | 2021-06-30 10:42 | PCRCNOTE ---
Window of time for administration has passed. See next scheduled administration.
[2021-06-30 15:46] LABS: Hematocrit 27.8 % (42.0-52.0); Hemoglobin 9.1 g/dL (14.0-18.0)
--- NOTE | 2021-06-30 18:28 | PM.IMPN ---
Progress Note: A&P Assessment and Plan (1) Acute GI bleeding: Code(s): K92.2 - Gastrointestinal hemorrhage, unspecified Status: Acute Assessment and Plan: GI has been consulted. For now we were hold his Coumadin. His INR is 2.6. Will do a daily PT INR. GI has seen the patient and recommended that the INR be less than 1.8 prior to any endoscopies. Will continue to monitor H&H every 6 hours. Stool for occult blood. Daily PT INR. Continue with IV Pepcid. Patient has also been on an aspirin so will hold the aspirin and the Coumadin. The patient has been on Coumadin for the atrial fibrillation/atrial flutter. GI has been consulted. Continue with PPI. Type crossmatch and transfuse when necessary. 06/30/2021 Interval history: patient is 80-year-old male with history of atrial fibrillation chronically anticoagulated with warfarin presented with anemia stool Hemoccult is positive concerning for GI bleed, patient is given vitamin K to reverse INR GI would like to be below 1.8 before doing EGD to further evaluate source of bleeding, currently patient is feeling better denies any abdominal pain nausea or vomiting or any bleeding, will continue to monitor INR today's 2.7. (2) Atrial flutter: Qualifiers: Atrial flutter type: unspecified Qualified Code(s): I48.92 - Unspecified atrial flutter Code(s): I48.92 - Unspecified atrial flutter Status: Acute Assessment and Plan: The patient currently is in sinus rhythm. We are holding Coumadin for now with daily PT INR. Continue with his anti rhythmic said he takes from home. It looks like he may be on digoxin and metoprolol. (3) Hypertension: Qualifiers: Hypertension type: essential hypertension Qualified Code(s): I10 - Essential (primary) hypertension Code(s): I10 - Essential (primary) hypertension Status: Chronic Assessment and Plan: Continue with home medication it looks like he may be on metoprolol. (4) Enlarged prostate without lower urinary tract symptoms (luts): Code(s): N40.0 - Benign prostatic hyperplasia without lower urinary tract symptoms Status: Acute Assessment and Plan: Continue with tamsulosin (5) MATT (obstructive sleep apnea): Code(s): G47.33 - Obstructive sleep apnea (adult) (pediatric) Status: Acute Assessment and Plan: Auto titrate CPAP here. (6) Hypothyroidism: Qualifiers: Hypothyroidism type: acquired Qualified Code(s): E03.9 - Hypothyroidism, unspecified Code(s): E03.9 - Hypothyroidism, unspecified Status: Acute Assessment and Plan: Check thyroid level continue with home medications. (7) Depression: Code(s): F32.9 - Major depressive disorder, single episode, unspecified Status: Chronic Assessment and Plan: Continue with home medications. Additional Plan Patient was recently treated with antibiotics for UTI. Urine cultures are pending here. I did not restart the Rocephin as his last cultures from earlier this month of the urine were negative. Subjective Date/time seen: 06/30/21 18:28 06/30/2021 Interval history: patient is 80-year-old male with history of atrial fibrillation chronically anticoagulated with warfarin presented with anemia stool Hemoccult is positive concerning for GI bleed, patient is given vitamin K to reverse INR GI would like to be below 1.8 before doing EGD to further evaluate source of bleeding, currently patient is feeling better denies any abdominal pain nausea or vomiting or any bleeding, will continue to monitor INR today's 2.7. Review of Systems Review of Systems: All systems reviewed & are unremarkable except as noted in HPI and below Exam Narrative: Patient is comfortable, NAD HEENT: eyes are clear and none icteric LUNGS: normal respiratory effort ABD: not distended Lower extremities: no edema SKIN: nonjaundiced Neuro: grossly intact. Objective D
[2021-06-30] MEDS: FLUTICASONE/SALMETEROL 115-21 MCG INHALER 1 PUFF 2 PUFF INHALATION (20:31)
[2021-06-30] MEDS: ATORVASTATIN 20 MG TABLET PO (20:42)
[2021-07-01] VITALS (28 sets, daily range): BP systolic 105–144; BP diastolic 39–69; PULSE 68–115; RESP 16–21; TEMP 36.1–37.1; O2SAT 90–100
[2021-07-01] MEDS: AMIODARONE 360 MG/D5W 200 ML 360 MG/200 ML BAG 16.67 MG IV CONT (05:52)
[2021-07-01 07:30] LABS: INR 2.1; Prothrombin Time 23.2 Seconds (11.1-14.7)
--- NOTE | 2021-07-01 08:36 | P.CDI_ITS ---
CDI Query Clarification Request - presented with anemia, stool Hemoccult is positive and EGD to further evaluate source of bleeding documented. Anemia is not on the problem list. -Coffee ground emesis and tarry stools documented. Acute UGI bleed documented. -06/29 H&H10.8/34.6 on arrival, 06/30 H&H 6.5/20.9. Two units of blood transfused. Please further specify type/cause and acuity of anemia: * Acute blood loss anemia * Acute anemia of other cause * Chronic anemia * Acute blood loss anemia on chronic anemia * Acute anemia of other cause on chronic anemia * Other * Unable to determine <Ariane Vergara RN - Last Filed: 07/01/21 08:53> Clarified Diagnosis (1) Anemia: Qualifiers: Anemia type: unspecified type Qualified Code(s): D64.9 - Anemia, unspecified <Ariaen Vergara RN - Last Filed: 07/01/21 08:53> Code(s): D64.9 - Anemia, unspecified <Ariane Vergara RN - Last Filed: 07/01/21 08:53> Status: Acute <Ariane Vergara RN - Last Filed: 07/01/21 08:53> Assessment and Plan: Acute blood loss anemia <Valerie Stearns MD - Last Filed: 07/08/21 18:40>
[2021-07-01] MEDS: TUBING, BLOOD PLUM PUMP TUBING 1 EACH XX (10:00)
[2021-07-01] MEDS: FLUTICASONE/SALMETEROL 115-21 MCG INHALER 1 PUFF 2 PUFF INHALATION ×2 (10:28→22:38)
--- NOTE | 2021-07-01 10:45 | WPDANESEPPF ---
Anes - Initial Pre Proc Eval Procedure: Operation Date: 07/01/21 10:45 Proposed Procedures p Esophagogastroduodenoscopy - Emmanuel Smith MD Date/Time: 07/01/21 10:45 Surgeon: Sherly Villagomez MD Pre Op Diagnosis: gi gleed Patient Data Age: 80 Gender: M Height: 1.7 m Weight: 79.2 kg Last Vital Signs Temp 36.8 C 07/01/21 10:23 Pulse 89 07/01/21 10:23 Resp 20 07/01/21 10:23 BP 141/51 H 07/01/21 10:23 Pulse Ox 97 07/01/21 10:23 Allergies Allergy/AdvReac Type Severity Reaction Status Date / Time theophylline Allergy Unknown Palpitation Verified 02/05/21 12:45 s Home Medications Medication Instructions Recorded Confirmed Type aspirin 81 mg tablet,delayed 81 mg PO DAILY 04/04/19 06/29/21 History release brimonidine-timolol [Combigan] 1 drp OPHTHALMIC (EYE) BID 04/23/19 06/29/21 History multivitamin 1 cap PO DAILY 04/23/19 06/29/21 History fexofenadine 180 mg tablet 180 mg PO DAILY #90 tablet 01/29/20 06/29/21 Rx Glucosamine Complex 2 cap PO DAILY 01/20/21 06/29/21 History acetaminophen 650 mg PO Q6H PRN 01/20/21 06/29/21 History albuterol sulfate [ProAir HFA] 2 puff INHALATION Q4H PRN 01/20/21 06/29/21 History furosemide 40 mg PO DAILY 01/20/21 06/29/21 History budesonide-formoterol [Symbicort] 2 puff INHALATION Q12H #1 g 01/30/21 06/29/21 Rx digoxin 125 mcg PO QAM #30 tablet 01/30/21 06/29/21 Rx melatonin 3 mg PO HS PRN #30 tablet 01/30/21 06/29/21 Rx metoprolol succinate [Toprol XL] 200 mg PO QAM #30 tablet 01/30/21 06/29/21 Rx tramadol 50 mg PO Q6H PRN #20 tablet 01/30/21 06/29/21 Rx warfarin 2 mg tablet See Rx Instructions .ROUTE 05/28/21 06/29/21 Rx .COMPLEX #60 tablet tamsulosin 0.4 mg capsule 0.4 mg PO .COMPLEX #30 cap 06/16/21 06/29/21 Rx atorvastatin 20 mg PO HS 06/29/21 06/29/21 History citalopram 20 mg PO DAILY 06/29/21 06/29/21 History gabapentin [Neurontin] 300 mg PO BID 06/29/21 06/29/21 History Laboratory Tests 06/29/21 06/30/21 07/01/21 09:27 15:09 07:00 Hgb 9.1 g/dL L g/dL (14.0-18.0) Hct 27.8 % L % (42.0-52.0) PT 23.2 Seconds H Seconds (11.1-14.7) INR 2.1 Blood Type A Positive Antibody Screen Negative Crossmatch See Detail Patient hx anesthesia problems: none Family hx anesthesia problems: none Results Review: All pre-operative results and documents have been reviewed as part of the pre-operative evaluation. [facility] Past Medical History Medical History Abnormal EKG Arthritis Atrial flutter Bladder spasms BMI 30.0-30.9,adult BPH (benign prostatic hyperplasia) Depression Emphysema lung Encounter for screening colonoscopy History of kidney stones Hypertension Hypothyroidism Multiple renal calculi MATT (obstructive sleep apnea) Shingles Sleep apnea Sundowning Sundowning Tachycardia Surgical History Surgical History History of bladder surgery x2 History of colonoscopy Hx of hernia repair Family History Family History Mother Hypertension Family history of malignant neoplasm Family history of heart disease in male family member before age 55 Father Malignant neoplasm of prostate Family history of chronic obstructive pulmonary disease Sibling Family history of chronic obstructive pulmonary disease Social History Social History Social History: THE PATIENT LIVES WITH HIS . The patient quit smoking many years ago. 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 He has 2 children. 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 Code status DNR Smoking packs per day: 1 Smoking cigarettes per day: 20.0 Years smoked: 20 Smoking pack-years: 20.00 Smoking status: Former smoker T
[2021-07-01] MEDS: LACTATED RINGERS 1,000 ML 150 ML IV CONT (10:49)
[2021-07-01 13:13] LABS: Glucose Point of Care 163 mg/dl (65-105)
--- NOTE | 2021-07-01 15:39 | PM.IMPN ---
Progress Note: A&P Assessment and Plan (1) Acute GI bleeding: Code(s): K92.2 - Gastrointestinal hemorrhage, unspecified Status: Acute Assessment and Plan: GI has been consulted. For now we were hold his Coumadin. His INR is 2.6. Will do a daily PT INR. GI has seen the patient and recommended that the INR be less than 1.8 prior to any endoscopies. Will continue to monitor H&H every 6 hours. Stool for occult blood. Daily PT INR. Continue with IV Pepcid. Patient has also been on an aspirin so will hold the aspirin and the Coumadin. The patient has been on Coumadin for the atrial fibrillation/atrial flutter. GI has been consulted. Continue with PPI. Type crossmatch and transfuse when necessary. 06/30/2021 Interval history: patient is 80-year-old male with history of atrial fibrillation chronically anticoagulated with warfarin presented with anemia stool Hemoccult is positive concerning for GI bleed, patient is given vitamin K to reverse INR GI would like to be below 1.8 before doing EGD to further evaluate source of bleeding, currently patient is feeling better denies any abdominal pain nausea or vomiting or any bleeding, will continue to monitor INR today's 2.7. 07/01/2021 Interval history: patient is 80-year-old male with history of atrial fibrillation chronically anticoagulated with warfarin presented with anemia stool Hemoccult is positive concerning for GI bleed, patient was given vitamin K to reverse INR GI would like to be below 1.8 before doing EGD, patient had a EGD and showed ulcer with bleeding the lesion was cauterized, will monitor H&H, currently patient is feeling better denies any abdominal pain nausea or vomiting or any bleeding, (2) Atrial flutter: Qualifiers: Atrial flutter type: unspecified Qualified Code(s): I48.92 - Unspecified atrial flutter Code(s): I48.92 - Unspecified atrial flutter Status: Acute Assessment and Plan: The patient currently is in sinus rhythm. We are holding Coumadin for now with daily PT INR. Continue with his anti rhythmic said he takes from home. It looks like he may be on digoxin and metoprolol. (3) Hypertension: Qualifiers: Hypertension type: essential hypertension Qualified Code(s): I10 - Essential (primary) hypertension Code(s): I10 - Essential (primary) hypertension Status: Chronic Assessment and Plan: Continue with home medication it looks like he may be on metoprolol. (4) Enlarged prostate without lower urinary tract symptoms (luts): Code(s): N40.0 - Benign prostatic hyperplasia without lower urinary tract symptoms Status: Acute Assessment and Plan: Continue with tamsulosin (5) MATT (obstructive sleep apnea): Code(s): G47.33 - Obstructive sleep apnea (adult) (pediatric) Status: Acute Assessment and Plan: Auto titrate CPAP here. (6) Hypothyroidism: Qualifiers: Hypothyroidism type: acquired Qualified Code(s): E03.9 - Hypothyroidism, unspecified Code(s): E03.9 - Hypothyroidism, unspecified Status: Acute Assessment and Plan: Check thyroid level continue with home medications. (7) Depression: Code(s): F32.9 - Major depressive disorder, single episode, unspecified Status: Chronic Assessment and Plan: Continue with home medications. Additional Plan Patient was recently treated with antibiotics for UTI. Urine cultures are pending here. I did not restart the Rocephin as his last cultures from earlier this month of the urine were negative. Subjective Date/time seen: 07/01/21 15:39 06/30/2021 Interval history: patient is 80-year-old male with history of atrial fibrillation chronically anticoagulated with warfarin presented with anemia stool Hemoccult is positive concerning for GI bleed, patient is given vitamin K to reverse INR GI would like to be below 1.8 before doing EGD to further evaluate source of
[2021-07-01 16:32] LABS: Glucose Point of Care 147 mg/dl (65-105)
[2021-07-01] MEDS: METOPROLOL SUCCINATE EXT REL 100 MG TABCR 200 MG PO (17:56)
[2021-07-01] MEDS: TAMSULOSIN HCL 0.4 MG CAPSULE PO (17:56)
[2021-07-01] MEDS: ASPIRIN 81 MG ENTERIC TABLET PO (17:58)
[2021-07-01] MEDS: DIGOXIN TAB 125 MCG TABLET PO (18:01)
[2021-07-01] MEDS: GABAPENTIN 300 MG CAPSULE PO (18:01)
[2021-07-01] MEDS: LORATADINE 10 MG TABLET PO (18:01)
[2021-07-01] MEDS: MULTIVITAMINS THERAPEUTIC TAB (*BKC) 1 TABLET PO (18:01)
[2021-07-01] MEDS: CITALOPRAM HYDROBROMIDE 20 MG TABLET PO (18:02)
[2021-07-01] MEDS: FUROSEMIDE 40 MG TABLET PO (18:02)
[2021-07-01] MEDS: PANTOPRAZOLE SODIUM IV 40 MG VIAL IV PUSH ×2 (18:02→22:15)
[2021-07-01] MEDS: SODIUM CHLORIDE 0.9% IV 250 ML 30 ML (18:03)
[2021-07-01] MEDS: ATORVASTATIN 20 MG TABLET PO (22:14)
[2021-07-02] VITALS (26 sets, daily range): BP systolic 82–120; BP diastolic 31–73; PULSE 58–83; RESP 16–22; TEMP 35.7–37.6; O2SAT 92–100
[2021-07-02 05:25] LABS: Mean Corpuscular HGB Conc 31.6 g/dl (32-36); Mean Corpuscular Hemoglobin 30.5 pg (26-34); Mean Corpuscular Volume 96.3 fl (80-100); Mean Platelet Volume 10.6 fl (7.4-10.4); Platelet Count Result 140 k/mm3 (150-375); Red Blood Count 1.64 M/mm3 (4.6-6.20); Red Cell Distribution Width 14.8 % (11.5-14.5); White Blood Count 9.9 K/mm3 (4.5-10.0)
[2021-07-02 05:30] LABS: Hematocrit 15.8 % (42.0-52.0)
[2021-07-02 05:42] LABS: Anion Gap 3 mmol/L (8-16); Blood Urea Nitrogen 23 mg/dL (9-20); Carbon Dioxide 31 mmol/L (22-30); Chloride 107 mmol/L (98-107); Estimated CRCL calculation 58 ml/min; Estimated Glomerular Filt Rate > 60; Glucose 131 mg/dL (65-110); Potassium 2.8 mmol/L (3.4-5.0); Sodium 141 mmol/L (137-145)
[2021-07-02] MEDS: POTASSIUM CHLORIDE INJ 40 MEQ in SODIUM CHLORIDE 0.9% IV 500 ML 130 MEQ IVPB ×2 (06:28→18:34)
[2021-07-02 07:33] LABS: INR 1.4; Prothrombin Time 16.9 Seconds (11.1-14.7)
[2021-07-02] MEDS: SODIUM CHLORIDE 0.9% IV 250 ML 30 ML IV CONT (08:30)
[2021-07-02] MEDS: TUBING, BLOOD PLUM PUMP TUBING 1 EACH XX ×2 (08:30→12:35)
[2021-07-02] MEDS: FLUTICASONE/SALMETEROL 115-21 MCG INHALER 1 PUFF 2 PUFF INHALATION ×2 (08:38→21:29)
--- NOTE | 2021-07-02 09:22 | WPDANESEFPP ---
Anes - Eval Final PreProcedure Day of Procedure 07/02/21 09:22 Patient weight: overweight Heart: regular rate and rhythm Lungs: clear to auscultation Airway: Mallampati scale class II Neurological: alert and oriented Last oral intake: >/= 8 hours ASA classification: IV Emergent: no Anesthetic plan: proceed Anesthesia type and monitoring: general GIVS and standard monitoring Results Review: All pre-operative results and documents have been reviewed as part of the pre-operative evaluation. Informed Consent: The patient's anesthetic plan and its attendant risks and benefits were discussed with the patient/family/POA. Questions were solicited and answers provided to the satisfaction of the patient/family/POA.
[2021-07-02] MEDS: LACTATED RINGERS 1,000 ML 150 ML IV CONT (09:54)
[2021-07-02] MEDS: SODIUM CHLORIDE 0.9% IV 250 ML 30 ML (12:36)
[2021-07-02] MEDS: PANTOPRAZOLE SODIUM IV 40 MG VIAL IV PUSH ×2 (13:48→21:33)
[2021-07-02] MEDS: GABAPENTIN 300 MG CAPSULE PO ×2 (13:48→18:34)
[2021-07-02] MEDS: ASPIRIN 81 MG ENTERIC TABLET PO (13:48)
[2021-07-02] MEDS: MULTIVITAMINS THERAPEUTIC TAB (*BKC) 1 TABLET PO (13:48)
[2021-07-02] MEDS: DIGOXIN TAB 125 MCG TABLET PO (13:49)
[2021-07-02] MEDS: CITALOPRAM HYDROBROMIDE 20 MG TABLET PO (13:49)
[2021-07-02] MEDS: FUROSEMIDE 40 MG TABLET PO (13:49)
[2021-07-02] MEDS: LORATADINE 10 MG TABLET PO (13:49)
[2021-07-02] MEDS: TAMSULOSIN HCL 0.4 MG CAPSULE PO (13:49)
[2021-07-02 17:33] LABS: Hematocrit 23.3 % (42.0-52.0); Hemoglobin 7.5 g/dL (14.0-18.0); Mean Corpuscular HGB Conc 32.2 g/dl (32-36); Mean Corpuscular Hemoglobin 30.9 pg (26-34); Mean Corpuscular Volume 95.9 fl (80-100); Mean Platelet Volume 10.4 fl (7.4-10.4); Platelet Count Result 141 k/mm3 (150-375); Red Blood Count 2.43 M/mm3 (4.6-6.20); Red Cell Distribution Width 14.4 % (11.5-14.5); White Blood Count 9.8 K/mm3 (4.5-10.0)
[2021-07-02 17:47] LABS: Anion Gap 5 mmol/L (8-16); Blood Urea Nitrogen 16 mg/dL (9-20); Calcium 7.9 mg/dL (8.4-10.2); Carbon Dioxide 32 mmol/L (22-30); Chloride 105 mmol/L (98-107); Estimated CRCL calculation 66 ml/min; Estimated Glomerular Filt Rate > 60; Glucose 113 mg/dL (65-110); Potassium 2.7 mmol/L (3.4-5.0); Sodium 142 mmol/L (137-145)
[2021-07-02] MEDS: POTASSIUM CHLORIDE 20 MEQ PACKET (FOR LIQUID) 40 MEQ PO (18:34)
[2021-07-02] MEDS: ATORVASTATIN 20 MG TABLET PO (21:33)
[2021-07-03] VITALS (19 sets, daily range): BP systolic 111–127; BP diastolic 41–50; PULSE 60–94; RESP 12–68; TEMP 36.3–37.3; O2SAT 94–99
[2021-07-03 05:59] LABS: Hematocrit 22.4 % (42.0-52.0); Hemoglobin 7.3 g/dL (14.0-18.0); Mean Corpuscular HGB Conc 32.6 g/dl (32-36); Mean Corpuscular Hemoglobin 30.8 pg (26-34); Mean Corpuscular Volume 94.5 fl (80-100); Mean Platelet Volume 10.5 fl (7.4-10.4); Platelet Count Result 153 k/mm3 (150-375); Red Blood Count 2.37 M/mm3 (4.6-6.20); Red Cell Distribution Width 14.6 % (11.5-14.5)
[2021-07-03 06:12] LABS: Anion Gap 2 mmol/L (8-16); Blood Urea Nitrogen 13 mg/dL (9-20); Calcium 7.4 mg/dL (8.4-10.2); Carbon Dioxide 28 mmol/L (22-30); Chloride 108 mmol/L (98-107); Estimated CRCL calculation 58 ml/min; Estimated Glomerular Filt Rate > 60; Glucose 113 mg/dL (65-110); Magnesium 1.7 mg/dL (1.6-2.3); Potassium 3.1 mmol/L (3.4-5.0); Sodium 138 mmol/L (137-145)
--- NOTE | 2021-07-03 07:50 | WPDGIPROGNO ---
Progress Note: A&P Assessment and Plan (1) Acute GI bleeding: Code(s): K92.2 - Gastrointestinal hemorrhage, unspecified Status: Acute Assessment and Plan: he began seeing black tarry stools 3 days ago. He has been on Coumadin for several months for what he states is atrial fibrillation. The chart indicates atrial flutter. He denies any prior history of ulcers or GI bleeding. Will need to reverse his INR, or least let it drift below 1.8 before we can do endoscopy without risk of bleeding. (2) Hematemesis: Code(s): K92.0 - Hematemesis Status: Acute Assessment and Plan: he had 1 episode of emesis of coffee-ground material early this morning. He denies having difficulty with swallowing. He denies chronic heartburn. He states that he has lost weight and his appetite has dropped off (3) Atrial flutter: Qualifiers: Atrial flutter type: unspecified Qualified Code(s): I48.92 - Unspecified atrial flutter Code(s): I48.92 - Unspecified atrial flutter Status: Acute Assessment and Plan: EKG today shows sinus rhythm. He has been on Coumadin but this is being held (4) Emphysema lung: Code(s): J43.9 - Emphysema, unspecified Status: Chronic (5) Multiple renal calculi: Code(s): N20.0 - Calculus of kidney Status: Inactive Assessment and Plan: over the last several years he had had multiple admissions for renal calculi. He denies any flank pain at this time (6) Chronic anticoagulation: Code(s): Z79.01 - [facility] (current) use of anticoagulants Status: Acute Assessment and Plan: will hold his Coumadin. I would like to give him some vitamin K to help lower his INR in order to proceed with EGD. INR is 1.4 today. I think it is too soon to restart his anticoagulation. Prep Tuesday Subjective Date/time seen: 07/03/21 07:50 He has no complaints today except that he is getting tired of clear liquids. He is brought tea which he cannot drink because of his history of kidney stone. He denies abdominal pain. He says that his stools are not as dark as they had been. Hemoglobin is holding at 7.3 Review of Systems Review of Systems: All systems reviewed & are unremarkable except as noted in HPI and below Exam Const: General: alert Orientation/consciousness: patient oriented x3 HENMT: Ears: hearing grossly impaired Resp: Auscultation: clear to auscultation bilaterally Cardio: Rhythm: regular rhythm GI: GI Palp: No abdominal tenderness and Yes No hepatosplenomegaly present Auscultation: normal bowel sounds Rectal Exam: deferred Neuro: General: patient oriented x3 Objective Data Vital Signs Vital Signs: Vital Signs - 24 hr 07/02/21 08:00 07/02/21 08:55 07/02/21 09:05 Temperature 36.2 C L 36.4 C L 36.5 C Pulse Rate 62 63 74 Respiratory Rate 18 22 H 16 Blood Pressure 104/39 L 99/36 L 95/33 L Pulse Oximetry 98 95 95 07/02/21 09:57 07/02/21 10:17 07/02/21 10:27 Temperature 36.2 C L Pulse Rate 63 61 60 Respiratory Rate 18 18 19 Blood Pressure 91/31 L 84/34 L 82/34 L Pulse Oximetry 92 100 99 07/02/21 10:37 07/02/21 10:38 07/02/21 12:00 Temperature 37.6 C 36.2 C L Pulse Rate 58 L 58 L 61 Respiratory Rate 19 19 18 Blood Pressure 93/37 L 93/37 L 106/54 L Pulse Oximetry 100 100 96 07/02/21 12:28 07/02/21 12:38 07/02/21 12:43 Temperature 36.1 C L 35.7 C L 35.7 C L Pulse Rate 63 67 67 Respiratory Rate 20 20 20 Blood Pressure 107/45 L 103/46 L 103/46 L Pulse Oximetry 100 97 97 07/02/21 13:46 07/02/21 13:49 07/02/21 14:00 Temperature 36.7 C Pulse Rate 79 62 66 Respiratory Rate 16 Blood Pressure 104/43 L Pulse Oximetry 94 07/02/21 14:45 07/02/21 16:00 07/02/21 18:00 Temperature 36.8 C 36.1 C L Pulse Rate 81 71 83 Respiratory Rate 16 18 Blood Pressure 106/39 L 112/40 L Pulse Oximetry 94 94 07/02/21 19:48 07/02/21 20:00 07/02/21 21:29 Temperature 36.6 C
[2021-07-03] MEDS: FLUTICASONE/SALMETEROL 115-21 MCG INHALER 1 PUFF 2 PUFF INHALATION ×2 (09:05→21:55)
[2021-07-03] MEDS: DIGOXIN TAB 125 MCG TABLET PO (09:07)
[2021-07-03] MEDS: FUROSEMIDE 40 MG TABLET PO (09:08)
[2021-07-03] MEDS: GABAPENTIN 300 MG CAPSULE PO ×2 (09:08→16:50)
[2021-07-03] MEDS: ASPIRIN 81 MG ENTERIC TABLET PO (09:08)
[2021-07-03] MEDS: LORATADINE 10 MG TABLET PO (09:08)
[2021-07-03] MEDS: CITALOPRAM HYDROBROMIDE 20 MG TABLET PO (09:08)
[2021-07-03] MEDS: MULTIVITAMINS THERAPEUTIC TAB (*BKC) 1 TABLET PO (09:08)
[2021-07-03] MEDS: METOPROLOL SUCCINATE EXT REL 100 MG TABCR 200 MG PO (09:08)
[2021-07-03] MEDS: PANTOPRAZOLE SODIUM IV 40 MG VIAL IV PUSH ×2 (09:09→20:37)
[2021-07-03] MEDS: TAMSULOSIN HCL 0.4 MG CAPSULE PO (09:09)
--- NOTE | 2021-07-03 17:24 | PM.IMPN ---
Progress Note: A&P Assessment and Plan (1) Acute GI bleeding: Code(s): K92.2 - Gastrointestinal hemorrhage, unspecified Status: Acute Assessment and Plan: GI has been consulted. For now we were hold his Coumadin. His INR is 2.6. Will do a daily PT INR. GI has seen the patient and recommended that the INR be less than 1.8 prior to any endoscopies. Will continue to monitor H&H every 6 hours. Stool for occult blood. Daily PT INR. Continue with IV Pepcid. Patient has also been on an aspirin so will hold the aspirin and the Coumadin. The patient has been on Coumadin for the atrial fibrillation/atrial flutter. GI has been consulted. Continue with PPI. Type crossmatch and transfuse when necessary. 06/30/2021 Interval history: patient is 80-year-old male with history of atrial fibrillation chronically anticoagulated with warfarin presented with anemia stool Hemoccult is positive concerning for GI bleed, patient is given vitamin K to reverse INR GI would like to be below 1.8 before doing EGD to further evaluate source of bleeding, currently patient is feeling better denies any abdominal pain nausea or vomiting or any bleeding, will continue to monitor INR today's 2.7. 07/01/2021 Interval history: patient is 80-year-old male with history of atrial fibrillation chronically anticoagulated with warfarin presented with anemia stool Hemoccult is positive concerning for GI bleed, patient was given vitamin K to reverse INR GI would like to be below 1.8 before doing EGD, patient had a EGD and showed ulcer with bleeding the lesion was cauterized, will monitor H&H, currently patient is feeling better denies any abdominal pain nausea or vomiting or any bleeding, 07/02/2021 Interval history: patient is 80-year-old male with history of atrial fibrillation chronically anticoagulated with warfarin presented with anemia stool Hemoccult is positive concerning for GI bleed, patient was given vitamin K to reverse INR GI would like to be below 1.8 before doing EGD, patient had a EGD on 07/01 and showed ulcer with bleeding the lesion was cauterized, will monitor H&H, today patient hemoglobin dropped again to 5 this morning, EGD showed bleeding ulcer, currently patient is feeling better denies any abdominal pain nausea or vomiting or any bleeding, will continue to monitor. (2) Atrial flutter: Qualifiers: Atrial flutter type: unspecified Qualified Code(s): I48.92 - Unspecified atrial flutter Code(s): I48.92 - Unspecified atrial flutter Status: Acute Assessment and Plan: The patient currently is in sinus rhythm. We are holding Coumadin for now with daily PT INR. Continue with his anti rhythmic said he takes from home. It looks like he may be on digoxin and metoprolol. (3) Hypertension: Qualifiers: Hypertension type: essential hypertension Qualified Code(s): I10 - Essential (primary) hypertension Code(s): I10 - Essential (primary) hypertension Status: Chronic Assessment and Plan: Continue with home medication it looks like he may be on metoprolol. (4) Enlarged prostate without lower urinary tract symptoms (luts): Code(s): N40.0 - Benign prostatic hyperplasia without lower urinary tract symptoms Status: Acute Assessment and Plan: Continue with tamsulosin (5) MATT (obstructive sleep apnea): Code(s): G47.33 - Obstructive sleep apnea (adult) (pediatric) Status: Acute Assessment and Plan: Auto titrate CPAP here. (6) Hypothyroidism: Qualifiers: Hypothyroidism type: acquired Qualified Code(s): E03.9 - Hypothyroidism, unspecified Code(s): E03.9 - Hypothyroidism, unspecified Status: Acute Assessment and Plan: Check thyroid level continue with home medications. (7) Depression: Code(s): F32.9 - Major depressive disorder, single episode, unspecified Status: Chronic Assessment and Plan:
--- NOTE | 2021-07-03 17:29 | PM.IMPN ---
Progress Note: A&P Assessment and Plan (1) Acute GI bleeding: Code(s): K92.2 - Gastrointestinal hemorrhage, unspecified Status: Acute Assessment and Plan: GI has been consulted. For now we were hold his Coumadin. His INR is 2.6. Will do a daily PT INR. GI has seen the patient and recommended that the INR be less than 1.8 prior to any endoscopies. Will continue to monitor H&H every 6 hours. Stool for occult blood. Daily PT INR. Continue with IV Pepcid. Patient has also been on an aspirin so will hold the aspirin and the Coumadin. The patient has been on Coumadin for the atrial fibrillation/atrial flutter. GI has been consulted. Continue with PPI. Type crossmatch and transfuse when necessary. 06/30/2021 Interval history: patient is 80-year-old male with history of atrial fibrillation chronically anticoagulated with warfarin presented with anemia stool Hemoccult is positive concerning for GI bleed, patient is given vitamin K to reverse INR GI would like to be below 1.8 before doing EGD to further evaluate source of bleeding, currently patient is feeling better denies any abdominal pain nausea or vomiting or any bleeding, will continue to monitor INR today's 2.7. 07/01/2021 Interval history: patient is 80-year-old male with history of atrial fibrillation chronically anticoagulated with warfarin presented with anemia stool Hemoccult is positive concerning for GI bleed, patient was given vitamin K to reverse INR GI would like to be below 1.8 before doing EGD, patient had a EGD and showed ulcer with bleeding the lesion was cauterized, will monitor H&H, currently patient is feeling better denies any abdominal pain nausea or vomiting or any bleeding, 07/02/2021 Interval history: patient is 80-year-old male with history of atrial fibrillation chronically anticoagulated with warfarin presented with anemia stool Hemoccult is positive concerning for GI bleed, patient was given vitamin K to reverse INR GI would like to be below 1.8 before doing EGD, patient had a EGD on 07/01 and showed ulcer with bleeding the lesion was cauterized, will monitor H&H, today patient hemoglobin dropped again to 5 this morning, EGD showed bleeding ulcer, currently patient is feeling better denies any abdominal pain nausea or vomiting or any bleeding, will continue to monitor. 07/03/2021 Interval history: patient is 80-year-old male with history of atrial fibrillation chronically anticoagulated with warfarin presented with anemia stool Hemoccult is positive concerning for GI bleed, patient was given vitamin K to reverse INR GI would like to be below 1.8 before doing EGD, patient had a EGD on 07/01 and showed ulcer with bleeding the lesion was cauterized, on 07/02 patient hemoglobin dropped again to 5 and had EGD showed bleeding ulcer, and it was cauterized again, currently patient is feeling better denies any abdominal pain nausea or vomiting or any bleeding, will continue to monitor. will have a PT OT evaluate the patient. (2) Atrial flutter: Qualifiers: Atrial flutter type: unspecified Qualified Code(s): I48.92 - Unspecified atrial flutter Code(s): I48.92 - Unspecified atrial flutter Status: Acute Assessment and Plan: The patient currently is in sinus rhythm. We are holding Coumadin for now with daily PT INR. Continue with his anti rhythmic said he takes from home. It looks like he may be on digoxin and metoprolol. (3) Hypertension: Qualifiers: Hypertension type: essential hypertension Qualified Code(s): I10 - Essential (primary) hypertension Code(s): I10 - Essential (primary) hypertension Status: Chronic Assessment and Plan: Continue with home medication it looks like he may be on metoprolol. (4) Enlarged prostate without lower urinary tract symptoms (luts): Code(s): N40.0 - Benign prostatic hyperplasia without lower urinary tract symptoms Status: Acute
[2021-07-03] MEDS: ATORVASTATIN 20 MG TABLET PO (20:37)
[2021-07-03] MEDS: ACETAMINOPHEN 325 MG TABLET 650 MG PO (23:49)
[2021-07-04] VITALS (12 sets, daily range): BP systolic 103–120; BP diastolic 41–55; PULSE 54–76; RESP 12–18; TEMP 36.1–37.3; O2SAT 93–98
[2021-07-04 05:03] LABS: Hematocrit 23.4 % (42.0-52.0); Hemoglobin 7.4 g/dL (14.0-18.0); Mean Corpuscular HGB Conc 31.6 g/dl (32-36); Mean Corpuscular Volume 97.9 fl (80-100); Mean Platelet Volume 10.3 fl (7.4-10.4); Platelet Count Result 190 k/mm3 (150-375); Red Blood Count 2.39 M/mm3 (4.6-6.20); White Blood Count 9.4 K/mm3 (4.5-10.0)
[2021-07-04 05:27] LABS: Anion Gap 3 mmol/L (8-16); Blood Urea Nitrogen 16 mg/dL (9-20); Calcium 7.9 mg/dL (8.4-10.2); Carbon Dioxide 29 mmol/L (22-30); Chloride 102 mmol/L (98-107); Estimated CRCL calculation 47 ml/min; Estimated Glomerular Filt Rate > 60; Glucose 116 mg/dL (65-110); Potassium 3.1 mmol/L (3.4-5.0); Sodium 134 mmol/L (137-145)
--- NOTE | 2021-07-04 06:08 | PCRCNOTE ---
pt refused use of hospital unit after stating that he will not be here long enough to get comfortable with use; Also, pt stated that he has not used his home unit in years
[2021-07-04] MEDS: DIGOXIN TAB 125 MCG TABLET PO (08:55)
[2021-07-04] MEDS: CITALOPRAM HYDROBROMIDE 20 MG TABLET PO (08:56)
[2021-07-04] MEDS: ASPIRIN 81 MG ENTERIC TABLET PO (08:56)
[2021-07-04] MEDS: LORATADINE 10 MG TABLET PO (08:57)
[2021-07-04] MEDS: FUROSEMIDE 40 MG TABLET PO (08:57)
[2021-07-04] MEDS: GABAPENTIN 300 MG CAPSULE PO ×2 (08:57→16:23)
[2021-07-04] MEDS: METOPROLOL SUCCINATE EXT REL 100 MG TABCR 200 MG PO (08:58)
[2021-07-04] MEDS: TAMSULOSIN HCL 0.4 MG CAPSULE PO (08:59)
[2021-07-04] MEDS: MULTIVITAMINS THERAPEUTIC TAB (*BKC) 1 TABLET PO (08:59)
[2021-07-04] MEDS: PANTOPRAZOLE SODIUM IV 40 MG VIAL IV PUSH ×2 (08:59→21:10)
[2021-07-04] MEDS: POTASSIUM CHLORIDE 20 MEQ PACKET (FOR LIQUID) 40 MEQ PO (09:36)
[2021-07-04] MEDS: FLUTICASONE/SALMETEROL 115-21 MCG INHALER 1 PUFF 2 PUFF INHALATION ×2 (11:12→21:38)
--- NOTE | 2021-07-04 14:41 | PC.NURSE ---
This patient, Todd Callahan, was transferred to [[facility] ] on 07/04/21 at 1435. Personal belongings sent with patient. Report given to [Jaja ]. Appropriate documentation sent with patient.
--- NOTE | 2021-07-04 14:48 | PC.NURSE ---
This patient, Todd Callahan, was received from [[facility] ] on 07/04/21 at 1449. Patient oriented to unit policies and routines. Report received from Isabel.
[2021-07-04] MEDS: ACETAMINOPHEN 325 MG TABLET 650 MG PO (21:10)
[2021-07-04] MEDS: ATORVASTATIN 20 MG TABLET PO (21:10)
[2021-07-05 04:51] VITALS: BP 106/60; PULSE 62; RESP 18; TEMP 36.1; O2SAT 95
[2021-07-05 05:42] LABS: Hematocrit 24.4 % (42.0-52.0); Hemoglobin 7.8 g/dL (14.0-18.0); Mean Corpuscular Hemoglobin 30.7 pg (26-34); Mean Corpuscular Volume 96.1 fl (80-100); Mean Platelet Volume 10.2 fl (7.4-10.4); Platelet Count Result 229 k/mm3 (150-375); Red Blood Count 2.54 M/mm3 (4.6-6.20); Red Cell Distribution Width 15.9 % (11.5-14.5); White Blood Count 9.1 K/mm3 (4.5-10.0)
[2021-07-05 06:24] LABS: Anion Gap 2 mmol/L (8-16); Blood Urea Nitrogen 17 mg/dL (9-20); Calcium 8.1 mg/dL (8.4-10.2); Carbon Dioxide 29 mmol/L (22-30); Chloride 105 mmol/L (98-107); Estimated CRCL calculation 58 ml/min; Estimated Glomerular Filt Rate > 60; Glucose 110 mg/dL (65-110); Potassium 3.4 mmol/L (3.4-5.0); Sodium 136 mmol/L (137-145)
[2021-07-05] MEDS: FLUTICASONE/SALMETEROL 115-21 MCG INHALER 1 PUFF 2 PUFF INHALATION ×2 (08:12→20:30)
[2021-07-05] MEDS: POTASSIUM CHLORIDE 20 MEQ PACKET (FOR LIQUID) 40 MEQ PO (09:39)
[2021-07-05] MEDS: CITALOPRAM HYDROBROMIDE 20 MG TABLET PO (09:40)
[2021-07-05] MEDS: ASPIRIN 81 MG ENTERIC TABLET PO (09:40)
[2021-07-05] MEDS: cefTRIAXone 2 GM in SODIUM CHLORIDE 0.9% IV 100 ML 200 ML IVPB (09:40)
[2021-07-05 09:41] VITALS: PULSE 66
[2021-07-05] MEDS: PANTOPRAZOLE SODIUM IV 40 MG VIAL IV PUSH ×2 (09:41→20:48)
[2021-07-05] MEDS: LORATADINE 10 MG TABLET PO (09:41)
[2021-07-05] MEDS: FUROSEMIDE 40 MG TABLET PO (09:41)
[2021-07-05] MEDS: TAMSULOSIN HCL 0.4 MG CAPSULE PO (09:41)
[2021-07-05] MEDS: MULTIVITAMINS THERAPEUTIC TAB (*BKC) 1 TABLET PO (09:41)
[2021-07-05] MEDS: GABAPENTIN 300 MG CAPSULE PO ×2 (09:41→16:59)
[2021-07-05] MEDS: METOPROLOL SUCCINATE EXT REL 100 MG TABCR 200 MG PO (09:41)
[2021-07-05] MEDS: DIGOXIN TAB 125 MCG TABLET PO (09:41)
--- NOTE | 2021-07-05 10:31 | PCPTNOTE ---
Spoke with nursing who recommended to hold on therapy this date due to patient in A-fib and oxygen level. Will reassess on 07/06/21 with nursing.
--- NOTE | 2021-07-05 10:38 | PM.IMPN ---
Progress Note: A&P Assessment and Plan (1) Acute GI bleeding: Code(s): K92.2 - Gastrointestinal hemorrhage, unspecified Status: Acute Assessment and Plan: GI has been consulted. For now we were hold his Coumadin. His INR is 2.6. Will do a daily PT INR. GI has seen the patient and recommended that the INR be less than 1.8 prior to any endoscopies. Will continue to monitor H&H every 6 hours. Stool for occult blood. Daily PT INR. Continue with IV Pepcid. Patient has also been on an aspirin so will hold the aspirin and the Coumadin. The patient has been on Coumadin for the atrial fibrillation/atrial flutter. GI has been consulted. Continue with PPI. Type crossmatch and transfuse when necessary. 06/30/2021 Interval history: patient is 80-year-old male with history of atrial fibrillation chronically anticoagulated with warfarin presented with anemia stool Hemoccult is positive concerning for GI bleed, patient is given vitamin K to reverse INR GI would like to be below 1.8 before doing EGD to further evaluate source of bleeding, currently patient is feeling better denies any abdominal pain nausea or vomiting or any bleeding, will continue to monitor INR today's 2.7. 07/01/2021 Interval history: patient is 80-year-old male with history of atrial fibrillation chronically anticoagulated with warfarin presented with anemia stool Hemoccult is positive concerning for GI bleed, patient was given vitamin K to reverse INR GI would like to be below 1.8 before doing EGD, patient had a EGD and showed ulcer with bleeding the lesion was cauterized, will monitor H&H, currently patient is feeling better denies any abdominal pain nausea or vomiting or any bleeding, 07/02/2021 Interval history: patient is 80-year-old male with history of atrial fibrillation chronically anticoagulated with warfarin presented with anemia stool Hemoccult is positive concerning for GI bleed, patient was given vitamin K to reverse INR GI would like to be below 1.8 before doing EGD, patient had a EGD on 07/01 and showed ulcer with bleeding the lesion was cauterized, will monitor H&H, today patient hemoglobin dropped again to 5 this morning, EGD showed bleeding ulcer, currently patient is feeling better denies any abdominal pain nausea or vomiting or any bleeding, will continue to monitor. 07/03/2021 Interval history: patient is 80-year-old male with history of atrial fibrillation chronically anticoagulated with warfarin presented with anemia stool Hemoccult is positive concerning for GI bleed, patient was given vitamin K to reverse INR GI would like to be below 1.8 before doing EGD, patient had a EGD on 07/01 and showed ulcer with bleeding the lesion was cauterized, on 07/02 patient hemoglobin dropped again to 5 and had EGD showed bleeding ulcer, and it was cauterized again, currently patient is feeling better denies any abdominal pain nausea or vomiting or any bleeding, will continue to monitor. will have a PT OT evaluate the patient. 07/04/2021 Interval history: patient is 80-year-old male with history of atrial fibrillation chronically anticoagulated with warfarin presented with anemia stool Hemoccult was positive concerning for GI bleed, patient was given vitamin K to reverse INR GI would like to be below 1.8 before doing EGD, patient had a EGD on 07/01 and showed ulcer with bleeding the lesion was cauterized, on 07/02 patient hemoglobin dropped again to 5 and had EGD showed bleeding ulcer, and it was cauterized again, patient hemoglobin stays stable for last 2 days close to 7.4, patient remains clinically stable, currently patient is feeling better, able to tolerate his diet, denies any abdominal pain nausea or vomiting or any bleeding, will continue to monitor. will have a PT OT evaluate the patient. 07/05/2021 Interval history: patient is 80-year-old male with history of atrial fibrillation chronically anticoagulated with warfarin presented with anem
[2021-07-05 11:58] LABS: Add Urine Microscopic? YES; Appearance Urine Clear (Clear); Bacteria Urine 1+ /hpf; Bilirubin Urine Negative (Negative); Blood Urine Negative (Negative); Color Urine Yellow (Yellow); Glucose Urine UA Negative (Negative); Ketones Urine Negative (Negative); Leukocyte Esterase Ur 1+ LEU/UL (NEGATIVE); Mucus Urine Rare /lpf; Nitrate Urine Negative (Negative); Protein Urine Negative (Negative); Specific Grav Ur 1.012 (1.001-1.035); Urobilinogen Urine Negative mg/dL (<2.0); WBC Urine 31-50 /hpf (0-3)
[2021-07-05 14:20] VITALS: BP 110/50; PULSE 64; RESP 16; TEMP 36.6; O2SAT 97
[2021-07-05 20:31] VITALS: O2SAT 94
[2021-07-05] MEDS: BENZOCAINE/MENTHOL (*BKC) 18 EA LOZENGE 1 LOZENGE PO (20:48)
[2021-07-05] MEDS: ATORVASTATIN 20 MG TABLET PO (20:48)
[2021-07-05 22:00] VITALS: BP 110/52; PULSE 56; RESP 18; TEMP 36.4; O2SAT 97
[2021-07-05] MEDS: AMPICILLIN 2 GM/NS 100 ML 2 GM/100 ML BAG IVPB (23:47)
[2021-07-06 05:57] LABS: Hematocrit 25.3 % (42.0-52.0); Hemoglobin 8.2 g/dL (14.0-18.0); Mean Corpuscular HGB Conc 32.4 g/dl (32-36); Mean Corpuscular Hemoglobin 30.9 pg (26-34); Mean Corpuscular Volume 95.5 fl (80-100); Mean Platelet Volume 10.1 fl (7.4-10.4); Platelet Count Result 268 k/mm3 (150-375); Red Blood Count 2.65 M/mm3 (4.6-6.20); Red Cell Distribution Width 15.3 % (11.5-14.5); White Blood Count 7.8 K/mm3 (4.5-10.0)
[2021-07-06 06:00] VITALS: BP 125/46; PULSE 67; RESP 18; TEMP 36.2; O2SAT 96
[2021-07-06 06:04] LABS: Anion Gap 2 mmol/L (8-16); Blood Urea Nitrogen 16 mg/dL (9-20); Calcium 8.3 mg/dL (8.4-10.2); Carbon Dioxide 30 mmol/L (22-30); Chloride 99 mmol/L (98-107); Estimated CRCL calculation 47 ml/min; Estimated Glomerular Filt Rate > 60; Glucose 104 mg/dL (65-110); Potassium 3.7 mmol/L (3.4-5.0); Sodium 131 mmol/L (137-145)
[2021-07-06] MEDS: AMPICILLIN 2 GM/NS 100 ML 2 GM/100 ML BAG IVPB (07:27)
[2021-07-06] MEDS: ACETAMINOPHEN 325 MG TABLET 650 MG PO (07:53)
[2021-07-06 07:54] VITALS: PULSE 68
[2021-07-06] MEDS: CITALOPRAM HYDROBROMIDE 20 MG TABLET PO (07:54)
[2021-07-06] MEDS: ASPIRIN 81 MG ENTERIC TABLET PO (07:54)
[2021-07-06] MEDS: DIGOXIN TAB 125 MCG TABLET PO (07:54)
[2021-07-06 07:55] VITALS: PULSE 68
[2021-07-06] MEDS: MULTIVITAMINS THERAPEUTIC TAB (*BKC) 1 TABLET PO (07:55)
[2021-07-06] MEDS: FUROSEMIDE 40 MG TABLET PO (07:55)
[2021-07-06] MEDS: LORATADINE 10 MG TABLET PO (07:55)
[2021-07-06] MEDS: TAMSULOSIN HCL 0.4 MG CAPSULE PO (07:55)
[2021-07-06] MEDS: METOPROLOL SUCCINATE EXT REL 100 MG TABCR 200 MG PO (07:55)
[2021-07-06] MEDS: GABAPENTIN 300 MG CAPSULE PO (07:55)
[2021-07-06 07:56] LABS: Glucose Point of Care 112 mg/dl (65-105)
[2021-07-06] MEDS: FLUTICASONE/SALMETEROL 115-21 MCG INHALER 1 PUFF 2 PUFF INHALATION (08:24)
--- NOTE | 2021-07-06 08:25 | PM.DS ---
DS: Admitting Diagnosis Discharge Date 07/06/2021 Admitting Diagnosis GI bleed DS: Discharge Diagnosis Discharge Diagnosis (1) Anemia: Qualifiers: Anemia type: unspecified type Qualified Code(s): D64.9 - Anemia, unspecified Code(s): D64.9 - Anemia, unspecified Status: Acute Assessment and Plan: Acute blood loss anemia DS: Summary Hospital Course Reason for hospitalization: this is a 80-year-old male patient who has a history of atrial fibrillation versus atrial flutter and has been on Coumadin for several months. The patient came in today with complaints of tarry stools for the last 3 days. GI has been consulted and recommended that either the INR be reversed or diff down to 1.8 prior to endoscopy. The patient had a coffee-ground emesis early this morning. His H&H was initially 10.834.6 it is now 9.0 and 28.8. The patient was given IV Lopressor in the emergency room and Rocephin. He was also started on IV Protonix. The patient recently was treated for UTI and had been on on Macrobid and therefore he was switched to Rocephin for his urinary tract infection. The patient is being admitted to observation status date of service 06/29/2021. Chief Complaint: GI bleed Hospital Course: GI has been consulted. For now we were hold his Coumadin. His INR is 2.6. Will do a daily PT INR. GI has seen the patient and recommended that the INR be less than 1.8 prior to any endoscopies. Will continue to monitor H&H every 6 hours. Stool for occult blood. Daily PT INR. Continue with IV Pepcid. Patient has also been on an aspirin so will hold the aspirin and the Coumadin. The patient has been on Coumadin for the atrial fibrillation/atrial flutter. GI has been consulted. Continue with PPI. Type crossmatch and transfuse when necessary. 06/30/2021 Interval history: patient is 80-year-old male with history of atrial fibrillation chronically anticoagulated with warfarin presented with anemia stool Hemoccult is positive concerning for GI bleed, patient is given vitamin K to reverse INR GI would like to be below 1.8 before doing EGD to further evaluate source of bleeding, currently patient is feeling better denies any abdominal pain nausea or vomiting or any bleeding, will continue to monitor INR today's 2.7. 07/01/2021 Interval history: patient is 80-year-old male with history of atrial fibrillation chronically anticoagulated with warfarin presented with anemia stool Hemoccult is positive concerning for GI bleed, patient was given vitamin K to reverse INR GI would like to be below 1.8 before doing EGD, patient had a EGD and showed ulcer with bleeding the lesion was cauterized, will monitor H&H, currently patient is feeling better denies any abdominal pain nausea or vomiting or any bleeding, 07/02/2021 Interval history: patient is 80-year-old male with history of atrial fibrillation chronically anticoagulated with warfarin presented with anemia stool Hemoccult is positive concerning for GI bleed, patient was given vitamin K to reverse INR GI would like to be below 1.8 before doing EGD, patient had a EGD on 07/01 and showed ulcer with bleeding the lesion was cauterized, will monitor H&H, today patient hemoglobin dropped again to 5 this morning, EGD showed bleeding ulcer, currently patient is feeling better denies any abdominal pain nausea or vomiting or any bleeding, will continue to monitor. 07/03/2021 Interval history: patient is 80-year-old male with history of atrial fibrillation chronically anticoagulated with warfarin presented with anemia stool Hemoccult is positive concerning for GI bleed, patient was given vitamin K to reverse INR GI would like to be below 1.8 before doing EGD, patient had a EGD on 07/01 and showed ulcer with bleeding the lesion was cauterized, on 07/02 patient hemoglobin dropped again to 5 and had EGD showed bleeding ulcer, and it was cauterized again, currently patient is feeling better frandy
[2021-07-06 08:26] VITALS: O2SAT 96
[2021-07-06] MEDS: PANTOPRAZOLE SODIUM IV 40 MG VIAL IV PUSH (09:35)
== END 2021-07-06 10:29 | disposition home health service (06) | DRG 378 ==
LOC: ANHED 11:01 → ANH3MEDSUR 12:58 → ANH2MED 20:13 → ANHIMU 06-30 01:42 → ANH2MED 07-06 08:24 → ANHIMU 07-07 13:30
PROVIDERS: Internal Medicine Gastroenterology; Nurse Practitioner; Physician Assistant; Admitting Provider Hospitalist; Emergency Provider Family Medicine; PCP Family Medicine; Visit Provider Family Medicine
PROC: 0DJ08ZZ Inspection of Upper Intestinal Tract, Via Natural or Artificial Opening Endoscopic (ICD-10-PCS; CPT 43235; principal; 2021-07-01 10:45)
DX: K26.4 Chronic or unspecified duodenal ulcer with hemorrhage (principal); D62 Acute posthemorrhagic anemia; I48.92 Unspecified atrial flutter; N39.0 Urinary tract infection, site not specified; N40.0 Benign prostatic hyperplasia without lower urinary tract symptoms; K44.9 Diaphragmatic hernia without obstruction or gangrene; K29.60 Other gastritis without bleeding; K21.9 Gastro-esophageal reflux disease without esophagitis; Z20.822 Contact with and (suspected) exposure to COVID-19; I10 Essential (primary) hypertension; G47.33 Obstructive sleep apnea (adult) (pediatric); E03.9 Hypothyroidism, unspecified; F32.9 Major depressive disorder, single episode, unspecified; I48.91 Unspecified atrial fibrillation; N20.0 Calculus of kidney; J43.9 Emphysema, unspecified; M19.90 Unspecified osteoarthritis, unspecified site; Z87.442 Personal history of urinary calculi; Z87.891 Personal history of nicotine dependence; Z79.01 Long term (current) use of anticoagulants; Z79.82 Long term (current) use of aspirin
CPT/HCPCS: 36415; 36430; 71046; 80048; 80053; 81001; 82274; 82948; 83036; 83605; 83615; 83735; 84443; 84484; 85014; 85018; 85025; 85027; 85610; 85730; 86850; 86900; 86901; 86920; 87077; 87081; 87086; 87088; 87186; 88305; 93005; 94640; 96361; 96365; 96367; 96374; 96375; 96376; 97161; 97165; 99285; A9270; C9113; C9803; G0378; J0131; J0171; J0282; J0290; J0696; J1160; J2001; J2704; J3480; J7040; J7050; J7120; P9016; P9017; U0003; U0005

== ENCOUNTER 2021-11-02 01:12 | Day surgery (SDC) | payer MEDICARE, SELFPAY ==
[2021-10-23 14:05] VITALS: BMI 28.2
--- NOTE | 2021-11-02 11:08 | PM.HPGS ---
History of Present Illness History of Present Illness Consent: Risks, benefits, and alternatives have been discussed and questions answered. Patient agrees to proceed with procedure. Chief complaint: ulcer of antrum stomach Narrative: Todd Callahan is a 80 year old male Who is here for evaluation of a Duodenal ulcer. Three months ago he was hospitalized with gastrointestinal hemorrhage and found to have a duodenal ulcer. at that times hemoglobin was down to 5 g. The most recent 1, done later in June was 10. He has continued to take pantoprazole 40 mg daily Review of Systems Review of Systems: All systems reviewed & are unremarkable except as noted in HPI and below PMFSH Past Medical History Medical History Abnormal EKG Arthritis Atrial flutter Bladder spasms BMI 27.0-27.9,adult BMI 29.0-29.9,adult BMI 30.0-30.9,adult BPH (benign prostatic hyperplasia) Depression Emphysema lung Encounter for screening colonoscopy History of kidney stones Hypertension Hypothyroidism Multiple renal calculi MATT (obstructive sleep apnea) Shingles Sleep apnea Stomach ulcer Sundowning Sundowning Tachycardia Surgical History Surgical History History of bladder surgery x2 History of colonoscopy Hx of hernia repair Family History Family History Mother Hypertension Family history of malignant neoplasm Family history of heart disease in male family member before age 55 Stomach cancer Father Malignant neoplasm of prostate Family history of chronic obstructive pulmonary disease COPD (chronic obstructive pulmonary disease) Sibling Family history of chronic obstructive pulmonary disease Social History Social History Social History: THE PATIENT LIVES WITH HIS . The patient quit smoking many years ago. He is retired from the [employer]. He has 2 children. 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 Code status DNR Smoking packs per day: 1 Smoking cigarettes per day: 20.0 Years smoked: 20 Smoking pack-years: 20.00 Tobacco type: cigarettes Second hand tobacco smoke exposure: Yes Alcohol intake: former Substance use: never Substance use type: does not use Living arrangements: with family Additional occupation/education comments: [employer] Gender identity (if verbalized by the patient): Male Spiritual care concerns: No Meds Home Medications and Allergies Home Medications Medication Instructions Recorded Confirmed Type brimonidine 0.2 %-timolol 0.5 % 1 drp ophthalmic (eye) BID 04/23/19 10/23/21 History eye drops (Combigan) multivitamin 1 cap PO DAILY 04/23/19 10/23/21 History fexofenadine 180 mg tablet 180 mg PO DAILY #90 tabs 01/29/20 10/23/21 Rx Glucosamine Complex 2 cap PO DAILY 01/20/21 10/23/21 History acetaminophen 650 mg tablet 650 mg PO Q6H PRN fever or pain 01/20/21 10/23/21 History albuterol sulfate 90 mcg/actuation 2 puff inhalation Q4H PRN 01/20/21 10/23/21 History aerosol inhaler (ProAir HFA) Shortness Of Breath digoxin 125 mcg (0.125 mg) tablet 125 mcg PO QAM #30 tabs 01/30/21 10/23/21 Rx melatonin 3 mg tablet 3 mg PO HS PRN Insomnia #30 tabs 01/30/21 10/23/21 Rx tamsulosin 0.4 mg capsule (Flomax) 0.4 mg PO .COMPLEX #30 caps 06/16/21 10/23/21 Rx citalopram 20 mg tablet 20 mg PO DAILY 06/29/21 10/23/21 History gabapentin 300 mg capsule 300 mg PO HS 06/29/21 10/23/21 History (Neurontin) pantoprazole 40 mg tablet,delayed 40 mg PO QAM 4 weeks #30 tabs 08/11/21 10/23/21 Rx release metoprolol succinate 100 mg 25 mg PO QAM #30 tabs 08/20/21 10/23/21 Rx tablet,extended release 24 hr (Toprol XL) atorvastatin 20 mg tablet 20 mg PO HS #90 tabs 10/23/21 10/23/21 Rx warfarin 2 mg tablet See Rx Instruct
[2021-11-02 11:47] VITALS: BP 144/59; PULSE 64; RESP 18; TEMP 36.3; O2SAT 94; BMI 26.6
[2021-11-02] MEDS: LACTATED RINGERS 1,000 ML 150 ML IV CONT (11:54)
--- NOTE | 2021-11-02 11:58 | WPDANESEPPF ---
Anes - Initial Pre Proc Eval Procedure: Operation Date: 11/02/21 13:00 Proposed Procedures p Esophagogastroduodenoscopy - Emmanuel Smith MD Date/Time: 11/02/21 11:58 Surgeon: Emmanuel Smith MD Pre Op Diagnosis: ulcer of antrum stomach Patient Data Age: 80 Gender: M Height: 1.7 m Weight: 77 kg Last Vital Signs Temp 36.3 C L 11/02/21 11:47 Pulse 64 11/02/21 11:47 Resp 18 11/02/21 11:47 BP 144/59 H 11/02/21 11:47 Pulse Ox 94 11/02/21 11:47 O2 Del Method Room Air 11/02/21 11:47 Allergies Allergy/AdvReac Type Severity Reaction Status Date / Time theophylline Allergy Unknown Palpitation Verified 11/02/21 11:46 s Home Medications Medication Instructions Recorded Confirmed Type brimonidine 0.2 %-timolol 0.5 % 1 drp ophthalmic (eye) BID 04/23/19 10/23/21 History eye drops (Combigan) multivitamin 1 cap PO DAILY 04/23/19 10/23/21 History fexofenadine 180 mg tablet 180 mg PO DAILY #90 tabs 01/29/20 10/23/21 Rx Glucosamine Complex 2 cap PO DAILY 01/20/21 10/23/21 History acetaminophen 650 mg tablet 650 mg PO Q6H PRN fever or pain 01/20/21 10/23/21 History albuterol sulfate 90 mcg/actuation 2 puff inhalation Q4H PRN 01/20/21 10/23/21 History aerosol inhaler (ProAir HFA) Shortness Of Breath digoxin 125 mcg (0.125 mg) tablet 125 mcg PO QAM #30 tabs 01/30/21 10/23/21 Rx melatonin 3 mg tablet 3 mg PO HS PRN Insomnia #30 tabs 01/30/21 10/23/21 Rx tamsulosin 0.4 mg capsule (Flomax) 0.4 mg PO .COMPLEX #30 caps 06/16/21 10/23/21 Rx citalopram 20 mg tablet 20 mg PO DAILY 06/29/21 10/23/21 History gabapentin 300 mg capsule 300 mg PO HS 06/29/21 10/23/21 History (Neurontin) pantoprazole 40 mg tablet,delayed 40 mg PO QAM 4 weeks #30 tabs 08/11/21 10/23/21 Rx release metoprolol succinate 100 mg 25 mg PO QAM #30 tabs 08/20/21 10/23/21 Rx tablet,extended release 24 hr (Toprol XL) atorvastatin 20 mg tablet 20 mg PO HS #90 tabs 10/23/21 10/23/21 Rx warfarin 2 mg tablet See Rx Instructions .Route 10/23/21 10/23/21 Rx .COMPLEX #90 tabs furosemide 40 mg tablet See Rx Instructions .Route 10/26/21 11/02/21 Rx .COMPLEX #90 tabs Patient hx anesthesia problems: none Family hx anesthesia problems: none Results Review: All pre-operative results and documents have been reviewed as part of the pre-operative evaluation. [facility] Past Medical History Medical History Abnormal EKG Arthritis Atrial flutter Bladder spasms BMI 27.0-27.9,adult BMI 29.0-29.9,adult BMI 30.0-30.9,adult BPH (benign prostatic hyperplasia) Depression Emphysema lung Encounter for screening colonoscopy History of kidney stones Hypertension Hypothyroidism Multiple renal calculi MATT (obstructive sleep apnea) Shingles Sleep apnea Stomach ulcer Sundowning Sundowning Tachycardia Surgical History Surgical History History of bladder surgery x2 History of colonoscopy Hx of hernia repair Family History Family History Mother Hypertension Family history of malignant neoplasm Family history of heart disease in male family member before age 55 Stomach cancer Father Malignant neoplasm of prostate Family history of chronic obstructive pulmonary disease COPD (chronic obstructive pulmonary disease) Sibling Family history of chronic obstructive pulmonary disease Social History Social History Social History: THE PATIENT LIVES WITH HIS . The patient quit smoking many years ago. 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 He has 2 children. 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 Code status DNR Smoking packs per day: 1 Smoking cigarettes per day: 20.0 Years smoked: 20 Smoking pack-years: 20.00 Tobacco type: cigarettes Second hand t
[2021-11-02 12:30] VITALS: BP 107/55; PULSE 53; RESP 18; O2SAT 94
[2021-11-02 12:40] VITALS: BP 103/56; PULSE 51; RESP 17; O2SAT 95
[2021-11-02 12:50] VITALS: BP 128/75; PULSE 53; RESP 15; O2SAT 96
== END 2021-11-02 13:11 | disposition home or self-care (01) ==
PROVIDERS: PCP Family Medicine; Visit Provider Internal Medicine Gastroenterology
PROC: 0DJ08ZZ Inspection of Upper Intestinal Tract, Via Natural or Artificial Opening Endoscopic (ICD-10-PCS; CPT 43235; principal; 2021-11-02 13:00)
DX: Z09 Encounter for follow-up examination after completed treatment for conditions other than malignant neoplasm (principal); K44.9 Diaphragmatic hernia without obstruction or gangrene; K21.9 Gastro-esophageal reflux disease without esophagitis; Z87.11 Personal history of peptic ulcer disease; I48.92 Unspecified atrial flutter; I10 Essential (primary) hypertension; E03.9 Hypothyroidism, unspecified; G47.33 Obstructive sleep apnea (adult) (pediatric); N40.0 Benign prostatic hyperplasia without lower urinary tract symptoms; Z87.891 Personal history of nicotine dependence; Z79.51 Long term (current) use of inhaled steroids; Z79.01 Long term (current) use of anticoagulants
CPT/HCPCS: 43235; J2704; J7120

== ENCOUNTER 2022-06-17 09:41 | Emergency (ER) | payer MEDICARE, SELFPAY ==
[2022-06-17 09:59] VITALS: BP 142/70; PULSE 64; RESP 20; TEMP 36.4; O2SAT 95
--- NOTE | 2022-06-17 10:17 | ED.SKABFB ---
HPI - Skin/Abscess/Foreign Bdy General Chief complaint: Skin/Abscess/Foreign Body Stated complaint: rash Time Seen by Provider: 06/17/22 10:07 Source: patient and family () Mode of arrival: ambulatory Limitations: no limitations History of Present Illness HPI narrative: Patient presents today complaining of a rash to his left forehead and scalp that has spread to the left upper eyelid area. Rash has been present for the past 2 days an area to the forehead is now scabbed over. He is having intermittent sharp shooting pains to the scalp and itching to the forehead. He has been using triamcinolone cream that he uses for his eczema without relief. Denies any vision changes or eye pain. He did have a shingles vaccine many years ago. Related Data Home Medications Medication Instructions Recorded Confirmed brimonidine 0.2 %-timolol 0.5 % 1 drp ophthalmic (eye) BID 04/23/19 10/23/21 eye drops (Combigan) multivitamin 1 cap PO DAILY 04/23/19 10/23/21 Glucosamine Complex 2 cap PO DAILY 01/20/21 10/23/21 acetaminophen 650 mg tablet 650 mg PO Q6H PRN fever or pain 01/20/21 10/23/21 albuterol sulfate 90 mcg/actuation 2 puff inhalation Q4H PRN 01/20/21 10/23/21 aerosol inhaler (ProAir HFA) Shortness Of Breath gabapentin 300 mg capsule 300 mg PO HS 06/29/21 10/23/21 (Neurontin) Allergies Allergy/AdvReac Type Severity Reaction Status Date / Time theophylline Allergy Unknown Palpitation Verified 06/17/22 10:12 s Review of Systems Review of Systems: CONSTITUTIONAL: Denies body aches, fever, chills, or sweats. EYES: Denies visual changes, redness, or discharge. ENT: Denies rhinorrhea, congestion, sore throat, or otalgia. CARDIOVASCULAR: Denies chest pain, palpitations, or edema. RESPIRATORY: Denies cough or dyspnea. GASTROINTESTINAL: Denies abdominal pain, nausea, vomiting, or diarrhea. GENITOURINARY: Denies dysuria or hematuria. SKIN: + rash MUSCULOSKELETAL: Denies back pain, joint pain, or myalgia. NEUROLOGIC: Denies headache, numbness, tingling, or weakness. PSYCH: Denies depression or anxiety. PMFSH Past Medical History Medical History Abnormal EKG Arthritis Atrial flutter Bladder spasms BMI 27.0-27.9,adult BMI 29.0-29.9,adult BMI 30.0-30.9,adult BPH (benign prostatic hyperplasia) Depression Emphysema lung Encounter for screening colonoscopy History of kidney stones Hypertension Hypothyroidism Multiple renal calculi MATT (obstructive sleep apnea) Shingles Sleep apnea Stomach ulcer Sundowning Sundowning Tachycardia Surgical History Surgical History History of bladder surgery x2 History of colonoscopy Hx of hernia repair Family History Family History Mother Hypertension Family history of malignant neoplasm Family history of heart disease in male family member before age 55 Stomach cancer Father Malignant neoplasm of prostate Family history of chronic obstructive pulmonary disease COPD (chronic obstructive pulmonary disease) Sibling Family history of chronic obstructive pulmonary disease Social History Social History Social History: THE PATIENT LIVES WITH HIS . The patient quit smoking many years ago. He is retired from the [employer]. He has 2 children. 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 Code status DNR Smoking packs per day: 1 Smoking cigarettes per day: 20.0 Years smoked: 20 Smoking pack-years: 20.00 Tobacco type: cigarettes Second hand tobacco smoke exposure: Yes Alcohol intake: former Substance use: never Substance use type: does not use Additional occupation/education comments: [employer] Gender identity (if verbalized by the patient): Male Spiritual ca
== END 2022-06-17 10:27 | disposition home or self-care (01) ==
PROVIDERS: Emergency Provider Nurse Practitioner; PCP Family Medicine
DX: B02.9 Zoster without complications (principal); Z87.891 Personal history of nicotine dependence; M19.90 Unspecified osteoarthritis, unspecified site; N40.0 Benign prostatic hyperplasia without lower urinary tract symptoms; I10 Essential (primary) hypertension; E03.9 Hypothyroidism, unspecified; I48.92 Unspecified atrial flutter
CPT/HCPCS: 99213; G0463

== ENCOUNTER 2023-01-25 13:19 | Outpatient (CLI) | payer MEDICARE, SELFPAY ==
[2023-01-25 14:37] LABS: Digoxin < 0.5 ng/mL (0.8-2.0)
== END 2023-01-25 13:20 | disposition home or self-care (01) ==
PROVIDERS: PCP Family Medicine; Visit Provider Internal Medicine Cardiovascular Disease
DX: I48.3 Typical atrial flutter (principal)
CPT/HCPCS: 36415; 80162

== ENCOUNTER 2023-02-14 16:47 | Outpatient (CLI) | payer MEDICARE, SELFPAY ==
[2023-02-14 17:04] LABS: Hemoglobin 13.9 g/dL (14.0-18.0); Mean Corpuscular HGB Conc 32.3 g/dl (32-36); Mean Corpuscular Volume 92.7 fl (80-100); Platelet Count Result 228 k/mm3 (150-375); Red Blood Count 4.64 M/mm3 (4.6-6.20); Red Cell Distribution Width 12.7 % (11.5-14.5); White Blood Count 7.3 K/mm3 (4.5-10.0)
[2023-02-14 17:15] LABS: Anion Gap 6 mmol/L (8-16); Blood Urea Nitrogen 17 mg/dL (9-20); Calcium 9.4 mg/dL (8.4-10.2); Carbon Dioxide 36 mmol/L (22-30); Chloride 97 mmol/L (98-107); Estimated Glomerular Filt Rate > 60; Glucose 106 mg/dL (65-110); Potassium 3.8 mmol/L (3.4-5.0); Sodium 139 mmol/L (137-145)
[2023-02-14 17:35] LABS: Iron 135 ug/dL (49-181)
[2023-02-14 17:47] LABS: Percent Iron Saturation 36 % (20-50)
[2023-02-14 17:55] LABS: Free T4 Free Thyroxine 1.04 ng/mL (0.78-2.19)
== END 2023-02-14 16:48 | disposition home or self-care (01) ==
PROVIDERS: PCP Family Medicine; Visit Provider Family Medicine
DX: D64.9 Anemia, unspecified (principal); I10 Essential (primary) hypertension; E03.9 Hypothyroidism, unspecified
CPT/HCPCS: 36415; 80048; 83540; 83550; 84439; 84443; 85027

== ENCOUNTER 2023-02-16 13:58 | Outpatient (CLI) | payer MEDICARE, SELFPAY ==
[2023-02-16 17:36] LABS: Prostate Specific Antigen 4.1 ng/mL (< OR = 4.0)
== END 2023-02-16 13:59 | disposition home or self-care (01) ==
PROVIDERS: PCP Family Medicine; Visit Provider Physician Assistant Medical
DX: N40.0 Benign prostatic hyperplasia without lower urinary tract symptoms (principal); Z12.5 Encounter for screening for malignant neoplasm of prostate
CPT/HCPCS: 36415; 84153; G0103

== ENCOUNTER 2023-08-04 13:20 | Outpatient (CLI) | payer MEDICARE, SELFPAY ==
--- NOTE | ~2023-08-04 | XR_ITS ---
EXAMINATION: [id number] INDICATION: Chest pain TECHNIQUE: A frontal view of the chest and 3 views of the bilateral ribs were obtained. COMPARISON: 06/29/2021 FINDINGS: There is scarring of the lung apices. No pleural effusion or pneumothorax. The cardiomedias tinal silhouette is normal. There is an acute, minimally displaced lateral fracture of the left eight h rib. No definite additional acute rib fracture is identified. There is an old healed fracture of th e right seventh rib. IMPRESSION: 1. Acute, minimally displaced lateral fracture of the left eighth rib. Reviewed, dictated and finalized at location L. 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
== END 2023-08-04 13:21 | disposition home or self-care (01) ==
PROVIDERS: PCP Family Medicine; Visit Provider Family Medicine
DX: R07.81 Pleurodynia (principal)
CPT/HCPCS: 71111

== ENCOUNTER 2023-08-08 17:18 | Inpatient (IN) | payer MEDICARE, SELFPAY ==
--- NOTE | ~2023-08-08 | XR_ITS ---
EXAMINATION: XR chest 2V Exam Date/Time: 08/08/2023 19:14 CDT HISTORY: Rib pain/ fall Comparison: None. RESULT: Lines, tubes, and devices: None. Lungs and pleura: Biapical scarring and upper lobe fibrolinear scarring with hilar retraction. [place] changes. Cardiomediastinal silhouette: Stable. Other: No acute upper abdominal finding. Multiple mildly displaced left fifth through ninth rib frac tures. IMPRESSION: No acute cardiopulmonary process. Multiple mildly displaced left fifth through ninth rib fractures. Reviewed, dictated and finalized at location K.
--- NOTE | ~2023-08-08 | XR_ITS ---
EXAMINATION: XR chest 2V DATE: 08/10/2023 13:14 INDICATION: Rib fractures. Fall. TECHNIQUE: Frontal and lateral views of the chest were obtained. COMPARISON: Chest single view 08/09/2023 FINDINGS: There is mild atelectasis in the lower lung zones. There is mild scarring at the lung apice s. There is a small left pleural effusion. No pneumothorax. The heart size is normal. Calcified media stinal lymph nodes are consistent with old granulomatous disease. There are old healed bilateral rib fractures. Again seen are acute fractures of left sixth, seventh, eighth, and ninth ribs. IMPRESSION: 1. Mild atelectasis in the lower lung zones. Mild scarring at the lung apices. 2. Small left pleural effusion. 3. Acute left rib fractures again seen. Reviewed, dictated and finalized at location A.
--- NOTE | ~2023-08-08 | CT_ITS ---
EXAMINATION: CT brain wo con DATE: 08/08/2023 20:31 INDICATION: fall . TECHNIQUE: Computed tomography (CT) of the head was performed without intravenous contrast. The mA wa s adjusted according to patient size. Iterative reconstruction technique was employed. The dose-lengt h product was 681.00 mGy-cm. COMPARISON: 04/23/2019. FINDINGS: No acute intracranial hemorrhage or extra-axial fluid collection. No hydrocephalus, mass, or herniation. No acute ischemic infarct. Unremarkable dural venous sinus attenuation. No acute osseous abnormality. The aerated spaces are clear. Moderate atrophy and chronic white matter change. Atherosclerotic intracranial calcification. Bilater al lens replacements. 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 IMPRESSION: No acute intracranial process. Reviewed, dictated and finalized at location K.
--- NOTE | ~2023-08-08 | XR_ITS ---
EXAMINATION: XR chest 1V portable DATE: 08/09/2023 15:03 INDICATION: Rib fractures post fall. TECHNIQUE: frontal view of the chest was obtained. COMPARISON: Chest radiograph and CT dated 08/08/2023 FINDINGS: With emphysema and pleural parenchymal scarring at the bilateral apices of the lungs. Calcified nodul e at the left lower lung zone consistent with old granulomatous disease. No pulmonary edema or pleura l effusion. Small band of peripheral lucency at the lateral left mid to lower lung zone with appearan ce favoring skinfold over small pneumothorax. The cardiomediastinal silhouette is normal. There are a few displaced anterolateral left rib fractures. IMPRESSION: 1. A few anterolateral lower left rib fractures. Small amount of lucency at the lateral left mid to l ower lung with differential of skin fold or less likely small pneumothorax. 2. Mild emphysema intraparenchymal scarring at the bilateral apices. Reviewed, dictated and finalized at location L. IMPRESSION: 1. A few anterolateral lower left rib fractures. Small amount of lucency at the lateral left mid to lower lung with differential of skin fold or less likely s mall pneumothorax. 2. Mild emphysema intraparenchymal scarring at the bilateral apices.
--- NOTE | ~2023-08-08 | CT_ITS ---
EXAMINATION: CT cervical spine wo con DATE: 08/08/2023 20:32 INDICATION: fall TECHNIQUE: Computed tomography (CT) of the cervical spine was performed without intravenous contrast. Automated exposure control and iterative reconstruction technique were employed. The dose-length pro duct was 412.07 mGy-cm. COMPARISON: MR C-spine 01/05/2007. FINDINGS: Vertebral Body Alignment: Intact. Craniocervical and atlantoaxial alignment: Moderate degenerative change. Alignment intact. Osseous structures/fracture: No evidence of a lytic or blastic process in the visualized spine. No e vidence of acute fracture. Cervical soft tissues: The paraspinal soft tissues planes are maintained. Severe biapical pleural sca rring. Multiple apical bullae. Degenerative changes: Degenerative changes, without severe neural foraminal or central canal narrowin g. IMPRESSION: No acute fracture or traumatic malalignment in the cervical spine. Reviewed, dictated and finalized at location K.
--- NOTE | ~2023-08-08 | CT_ITS ---
EXAMINATION: CT chest abdomen pelvis w con DATE: 08/08/2023 20:40 INDICATION: left sided CP/abdominal pain after fall . TECHNIQUE: Computed tomography (CT) of the chest, abdomen, and pelvis was performed with 100 mL Omnip aque-350 intravenous contrast. Automated exposure control and iterative reconstruction technique were employed. The dose-length product was 1311.73 mGy-cm. COMPARISON: X-ray chest, same date; CT abdomen pelvis 02/05/2021; CT chest 08/10/2018 FINDINGS: CHEST: No thoracic aortic injury. Atherosclerotic calcifications. No mediastinal hematoma. Calcified hilar nodes. No pericardial effusion. Coronary artery calcification. No acute lung injury. Severe paraseptal emphysema and apical scarring. Granulomas calcification. No pneumothorax. Trace left pleural fluid. ABDOMEN/PELVIS: No solid organ injury. Innumerable hepatic cysts and subcentimeter hypodensities that also likely rep resent cysts. Hemorrhagic right upper pole cyst. Multiple simple bilateral renal cysts and subcentime ter hypodensities that also likely represent cysts. 2.6 cm lobulated cystic area in the pancreatic he ad with punctate calcifications. No evidence of bowel or mesenteric injury. No free fluid or free air. No retroperitoneal hematoma. Pelvic contents are atraumatic. MUSCULOSKELETAL: Mild bilateral gynecomastia. Angulated fractures of the left anterior fourth and fifth ribs. Mildly d isplaced fractures of the left lateral sixth through ninth ribs. Stable superior endplate deformity at T6. Stable mild anterior wedge deformity and minimal superior e nd plate deformities at the thoracolumbar junction. Stable L3 burst fracture. Increased inferior endp late deformity in the old L4 burst fracture. IMPRESSION: Multiple left rib fractures. No flail chest. Trace left pleural effusion which may represent minimal hemothorax in the setting of trauma. Moderate esophagitis/gastritis. Cystic and calcified pancreatic head lesion, recommend nonemergent but timely MRI of the pancreas wit hout and with contrast for further evaluation. Reviewed, dictated and finalized at location K. IMPRESSION: Multiple left rib fractures. No flail chest. Trace left pleural effusion which may represent minimal hemothorax in the setti ng of trauma. Moderate esophagitis/gastritis. Cystic and calcified pancreatic head lesion, recommend nonemergent but timely M RI of the pancreas without and with contrast for further evaluation.
[2023-08-08 17:20] VITALS: BP 174/81; PULSE 73; RESP 18; TEMP 36.5; O2SAT 97
[2023-08-08 17:37] VITALS: BP 153/81; PULSE 68; RESP 21; O2SAT 94
[2023-08-08 18:57] VITALS: BP 157/96; PULSE 64; RESP 17; O2SAT 97
--- NOTE | 2023-08-08 19:08 | PC.NURSE ---
Bedside report given to Laura RN, all questions answered
--- NOTE | 2023-08-08 19:15 | ECG_ITS ---
Measurements Intervals [place] Rate: 61 P: 48 ME: 170 QRS: -1 QRSD: 77 T: 12 QT: 411 QTc: 417 Interpretive Statements SINUS RHYTHM ANTEROSEPTAL INFARCT, AGE INDETERMINATE BORDERLINE ST-T WAVE ABNORMALITY- DIFFUSE LEADS BASELINE ARTIFACT- I, II, AVR, AVL, AVF ABNORMAL ECG COMPARED TO ECG 06/29/2021 10:57:03 NO SIGNIFICANT CHANGES Electronically Signed On 08-08-2023 20:07:57 CDT by Holden Del Rosario D.O.
--- NOTE | 2023-08-08 19:16 | ED.FALL ---
HPI - Fall General Chief Complaint: Fall Stated Complaint: left rib pain Time Seen by Provider: 08/08/23 17:37 History of Present Illness HPI Narrative: 82-year-old male presenting with chest and abdominal pain. Patient's family is at bedside and helps with the history. States that he had a fall about a week ago. Fell straight down and hit his head but did not lose consciousness. His PCP ordered an x-ray which revealed a left rib fracture. He was prescribed tramadol continues to have significant pain. States that it goes into his abdomen. Has had decreased appetite but no nausea or vomiting. Denies pain other than over his left lower ribs and upper abdomen. Has not had another fall. Is on Coumadin. Related Data Home Medications Medication Instructions Recorded Confirmed brimonidine 0.2 %-timolol 0.5 % 1 drp ophthalmic (eye) BID 04/23/19 08/09/23 eye drops (Combigan) multivitamin 1 cap PO DAILY 04/23/19 08/09/23 acetaminophen 650 mg tablet 650 mg PO Q6H PRN fever or pain 01/20/21 08/09/23 albuterol sulfate 90 mcg/actuation 2 puff inhalation Q4H PRN 01/20/21 08/09/23 aerosol inhaler (ProAir HFA) Shortness Of Breath glucosamine VTt-W5-Grcucoxue 1 tablet PO QAM 02/14/23 08/09/23 santa 1,500 mg-400 unit-100 mg tablet (Glucosamine Daily Complex) Vitamin C With [place] Hips 1,000 mg PO DAILY 08/09/23 08/09/23 atorvastatin 20 mg tablet 20 mg PO HS 08/09/23 08/09/23 citalopram 20 mg tablet 20 mg PO DAILY 08/09/23 08/09/23 furosemide 40 mg tablet 40 mg PO DAILY 08/09/23 08/09/23 metoprolol succinate 100 mg 25 mg PO BID 08/09/23 08/09/23 tablet,extended release 24 hr (Toprol XL) Allergies Allergy/AdvReac Type Severity Reaction Status Date / Time theophylline Allergy Unknown Palpitation Verified 08/08/23 17:32 s tramadol AdvReac Hallucinati Verified 08/08/23 17:32 ng Review of Systems Review of Systems: All systems reviewed & are unremarkable except as noted in HPI and below PMFSH Past Medical History Medical History Abnormal EKG Arthritis Atrial flutter Bladder spasms BMI 27.0-27.9,adult BMI 28.0-28.9,adult BMI 29.0-29.9,adult BMI 30.0-30.9,adult BPH (benign prostatic hyperplasia) Depression Emphysema lung Encounter for screening colonoscopy History of kidney stones Hypertension Hypothyroidism Multiple renal calculi MATT (obstructive sleep apnea) Shingles Sleep apnea Stomach ulcer Sundowning Tachycardia Surgical History Surgical History History of bladder surgery x2 History of colonoscopy Hx of hernia repair Family History Family History Mother Hypertension Family history of malignant neoplasm Family history of heart disease in male family member before age 55 Stomach cancer Father Malignant neoplasm of prostate Family history of chronic obstructive pulmonary disease COPD (chronic obstructive pulmonary disease) Sibling Family history of chronic obstructive pulmonary disease Social History Social History Social History: THE PATIENT LIVES WITH HIS . The patient quit smoking many years ago. 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 He has 2 children. 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 Code status DNR Smoking packs per day: 1 Smoking cigarettes per day: 20.0 Years smoked: 60 Smoking pack-years: 60.00 Smoking status: Former smoker Tobacco type: cigarettes Second hand tobacco smoke exposure: Yes Smoking end date: 10/28/20 Alcohol intake: never Substance use: never Substance use type: does not use Do You Feel Safe in your Home?: Yes Lack of Transportation: No Lack of Food: Never True Current Housing: I Have Housing Concerned About Future Housing: No Di
[2023-08-08] MEDS: SODIUM CHLORIDE 0.9% IV 1,000 ML 999 ML IV CONT (19:36)
[2023-08-08] MEDS: MORPHINE SULFATE (*CRX) 2 MG/ML INJ IV PUSH ×2 (19:41→22:23)
[2023-08-08 19:51] LABS: Basophils Absolute Auto 0.1 K/mm3 (0.0-0.1); Basophils Percent Auto 0.7 % (0.2-1.2); Eosinophils Absolute Auto 0.2 K/mm3 (0-0.3); Eosinophils Percent Auto 1.7 % (0-4.4); Hematocrit 41.3 % (42.0-52.0); Hemoglobin 13.1 g/dL (14.0-18.0); Immature Granulocyte Absolute 0.03 K/mm3 (0.00-0.031); Immature Granulocyte Percent A 0.3 % (0-0.5); Lymphocytes Absolute Auto 1.76 K/mm3 (0.9-3.2); Lymphocytes Percent Auto 17.9 % (18.3-44.2); Mean Corpuscular HGB Conc 31.7 g/dl (32-36); Mean Corpuscular Hemoglobin 29.5 pg (26-34); Monocytes Absolute Auto 1.4 K/mm3 (0.1-0.6); Monocytes Percent Auto 14.2 % (2.6-8.5); Neutrophils Absolute Auto 6.4 K/mm3 (1.3-6.7); Neutrophils Percent Auto 65.2 % (45.5-73.1); Platelet Count Result 249 k/mm3 (150-375); Red Blood Count 4.44 M/mm3 (4.6-6.20); Red Cell Distribution Width 13.2 % (11.5-14.5); White Blood Count 9.9 K/mm3 (4.5-10.0)
[2023-08-08 20:01] LABS: INR 1.9; Prothrombin Time 23.2 Seconds (11.1-14.7)
[2023-08-08 20:02] LABS: Partial Thromboplastin Time 32.6 SECONDS (22.3-36.8)
[2023-08-08 20:12] LABS: Alanine Aminotransferase 27 U/L (6-50); Albumin Level 4.2 g/dL (3.5-5.1); Alkaline Phosphatase 78 U/L (38-126); Anion Gap 3 mmol/L (8-16); Aspartate Amino Transferase 47 U/L (17-59); Bilirubin,Total 0.8 mg/dL (0.2-1.3); Blood Urea Nitrogen 21 mg/dL (9-20); Calcium 9.1 mg/dL (8.4-10.2); Carbon Dioxide 36 mmol/L (22-30); Chloride 99 mmol/L (98-107); Estimated CRCL calculation 56 ml/min; Estimated Glomerular Filt Rate > 60; Glucose 106 mg/dL (65-110); Lipase 68 U/L (23-300); Potassium 3.6 mmol/L (3.4-5.0); Sodium 138 mmol/L (137-145); Troponin I < 0.012 ng/mL (0.000-0.034)
[2023-08-08 22:35] LABS: Appearance Urine Clear (Clear); Bacteria Urine None Seen /hpf; Bilirubin Urine Negative (Negative); Blood Urine 1+ (Negative); Color Urine Yellow (Yellow); Glucose Urine UA Negative (Negative); Ketones Urine Negative (Negative); Leukocyte Esterase Ur Negative LEU/UL (Negative); Nitrate Urine Negative (Negative); Non Pathogenic Casts 0-2; Protein Urine Negative (Negative); RBC Urine 21-50 /hpf (0-2); Squamous Epithelial Cell Urine None seen /hpf (Few); WBC Urine 0-5 /hpf; pH Urine 7.5 (5.0-9.0)
--- NOTE | 2023-08-08 22:35 | PM.IMHP ---
H&P: HPI History of Present Illness Date/Time: 08/08/23 22:35 Chief Complaint: fall Narrative: this is an 82-year-old male with past medical history significant for atrial flutter, emphysema, hypothyroidism, structured sleep apnea. 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 Patient was placed on pain medication but has not been working for him. Preliminary workup was significant for multiple rib fractures. Patient has been admitted for further evaluation management and treatment. EXAMINATION: CT chest abdomen pelvis w con DATE: 08/08/2023 20:40 INDICATION: left sided CP/abdominal pain after fall . TECHNIQUE: Computed tomography (CT) of the chest, abdomen, and pelvis was performed with 100 mL Omnipaque-350 intravenous contrast. Automated exposure control and iterative reconstruction technique were employed. The dose-length product was 1311.73 mGy-cm. COMPARISON: X-ray chest, same date; CT abdomen pelvis 02/05/2021; CT chest 08/10/2018 FINDINGS: CHEST: No thoracic aortic injury. Atherosclerotic calcifications. No mediastinal hematoma. Calcified hilar nodes. No pericardial effusion. Coronary artery calcification. No acute lung injury. Severe paraseptal emphysema and apical scarring. Granulomas calcification. No pneumothorax. Trace left pleural fluid. ABDOMEN/PELVIS: No solid organ injury. Innumerable hepatic cysts and subcentimeter hypodensities that also likely represent cysts. Hemorrhagic right upper pole cyst. Multiple simple bilateral renal cysts and subcentimeter hypodensities that also likely represent cysts. 2.6 cm lobulated cystic area in the pancreatic head with punctate calcifications. No evidence of bowel or mesenteric injury. No free fluid or free air. No retroperitoneal hematoma. Pelvic contents are atraumatic. MUSCULOSKELETAL: Mild bilateral gynecomastia. Angulated fractures of the left anterior fourth and fifth ribs. Mildly displaced fractures of the left lateral sixth through ninth ribs. Stable superior endplate deformity at T6. Stable mild anterior wedge deformity and minimal superior end plate deformities at the thoracolumbar junction. Stable L3 burst fracture. Increased inferior endplate deformity in the old L4 burst fracture. IMPRESSION: Multiple left rib fractures. No flail chest. Trace left pleural effusion which may represent minimal hemothorax in the setting of trauma. Moderate esophagitis/gastritis. Cystic and calcified pancreatic head lesion, recommend nonemergent but timely MRI of the pancreas without and with contrast for further evaluation. Review of Systems Review of Systems: Ribcage pain with deep inspiration Constitutional: Constitutional: Denies chills, Denies fatigue, Denies fever(s), Denies malaise and Denies weakness Eyes: Eyes: Denies change in vision ENT: Denies dysphagia and Denies odynophagia Cardiovascular: Cardiovascular: Denies chest pain, Denies radiating jaw, neck or arm pain and Denies palpitations Respiratory: Respiratory: Denies cough and Denies dyspnea Gastrointestinal: Gastrointestinal: Denies abdominal pain, Denies dyspepsia, Denies heartburn, Denies diarrhea, Denies nausea and Denies vomiting Genitourinary: Genitourinary: Denies dysuria Musculoskeletal: Musculoskeletal: Reports other ( ribcage pain) Integumentary/Breasts: Skin/Breast: Denies rash Neurologic: Denies focal weakness and Denies Sensory deficit (Neuro) Psychiatric: Psychiatric: Reports no additional psychiatric complaints and Reports as per HPI Endocrine: Endocrine: Denies cold intolerance, Denies fat
[2023-08-08 22:48] LABS: Specific Grav Ur 1.056 (1.001-1.035)
[2023-08-08 22:49] LABS: Add Urine Microscopic? YES
[2023-08-09] VITALS (7 sets, daily range): BP systolic 115–167; BP diastolic 56–76; PULSE 63–86; RESP 14–20; TEMP 36.2–36.8; O2SAT 92–96; BMI 29.9
[2023-08-09] MEDS: MORPHINE SULFATE (*CRX) 2 MG/ML INJ IV PUSH ×2 (00:31→05:27)
[2023-08-09 08:43] LABS: Hemoglobin 12.6 g/dL (14.0-18.0); Mean Corpuscular HGB Conc 31.5 g/dl (32-36); Mean Corpuscular Hemoglobin 29.5 pg (26-34); Mean Corpuscular Volume 93.7 fl (80-100); Mean Platelet Volume 9.8 fl (7.4-10.4); Platelet Count Result 229 k/mm3 (150-375); Red Blood Count 4.27 M/mm3 (4.6-6.20); Red Cell Distribution Width 13.2 % (11.5-14.5); White Blood Count 8.2 K/mm3 (4.5-10.0)
[2023-08-09 08:55] LABS: Alanine Aminotransferase 26 U/L (6-50); Albumin Level 3.7 g/dL (3.5-5.1); Alkaline Phosphatase 83 U/L (38-126); Anion Gap 0 mmol/L (8-16); Aspartate Amino Transferase 36 U/L (17-59); Bilirubin,Total 0.8 mg/dL (0.2-1.3); Blood Urea Nitrogen 16 mg/dL (9-20); Calcium 8.6 mg/dL (8.4-10.2); Carbon Dioxide 37 mmol/L (22-30); Chloride 100 mmol/L (98-107); Estimated CRCL calculation 59 ml/min; Estimated Glomerular Filt Rate > 60; Glucose 116 mg/dL (65-110); Potassium 3.3 mmol/L (3.4-5.0); Sodium 137 mmol/L (137-145)
[2023-08-09] MEDS: ASCORBIC ACID 500 MG TABLET 1000 MG PO (09:34)
[2023-08-09] MEDS: LIDOCAINE 5% PATCH 1 PATCH TRANSDERM (09:35)
[2023-08-09] MEDS: MULTIVITAMINS THERAPEUTIC TAB (*BKC) 1 TABLET PO (09:35)
[2023-08-09] MEDS: LORATADINE 10 MG TABLET PO (09:35)
[2023-08-09] MEDS: CITALOPRAM HYDROBROMIDE 20 MG TABLET PO (09:40)
[2023-08-09] MEDS: BRIMONIDINE TARTRATE 0.2% OP SOLN 5 ML BTL 1 DROP EACH EYE ×2 (09:40→20:47)
[2023-08-09] MEDS: TIMOLOL MALEATE 0.5% OP SOLN 5 ML BOTTLE 1 DROP EACH EYE ×2 (09:41→20:47)
[2023-08-09] MEDS: METOPROLOL SUCCINATE EXT REL 25 MG TABCR PO ×2 (09:51→20:46)
[2023-08-09] MEDS: DIGOXIN TAB 125 MCG TABLET PO (09:51)
[2023-08-09] MEDS: KETOROLAC 30 MG/ML VIAL (*BKC) IV PUSH (12:30)
--- NOTE | 2023-08-09 14:34 | PM.IMPN ---
Progress Note: A&P Assessment and Plan (1) Fracture, rib: Code(s): S22.39XA - Fracture of one rib, unspecified side, initial encounter for closed fracture Status: Acute Assessment and Plan: continue pain management, will give [place] 1 tab q 6 hours, patient did not tolerate Ultram in the past. Reports pain 8/10. 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 Patient states that he fell on his left side and started having left-sided ribcage pain with inspiration. Workup in the hospital includes chest/abdomen/ pelvis CT which shown multiple left rib fractures, no flail chest, trace left pleural effusion which may represent minimal hemo thorax in the setting of trauma, cystic and calcified pancreatic head lesion, moderate esophagitis/gastritis. EKG showing sinus rhythm with a rate of 61, QTC 417. Initial labs essentially unremarkable, troponin negative, liver function and kidney function are normal. UA showing 1+ urine blood, 21-50 urine RBCs. Patient was given 1 L of normal saline while in the ED along with morphine for pain. On examination today patient is alert and oriented x3, sitting in the chair. Family is at the bedside. He states that his pain is 8/10. He denies any fever, chills, nausea, vomiting, diarrhea, abdominal pain, shortness a breath, headache. He does have some chest pain on the left side where his rib fractures are. Labs today show potassium 3.3 otherwise unremarkable. CXR today revealing Anterior lateral lower left rib fractures, small amount of lucency at the lateral left mid to lower lung with differential of skin folder less likely small pneumothorax, mild emphysema. Review of Systems Review of Systems: All systems reviewed & are unremarkable except as noted in HPI and below Constitutional: Constitutional: Reports as per HPI and Reports no additional constitutional complaints Eyes: Eyes: Reports as per HPI and Reports no additional eye complaints ENT: Reports system reviewed and no additional complaints, except as documented and Reports as per HPI Cardiovascular: Cardiovascular: Reports as per HPI and Reports no additional cardiovascular complaints Respiratory: Respiratory: Reports as per HPI and Reports no additional respiratory complaints Gastrointestinal: Gastrointestinal: Reports as per HPI and Reports no additional gastrointestinal complaints Genitourinary: Genitourinary: Reports no additional male genitourinary complaints and Reports as per HPI Musculoskeletal: Musculoskeletal: Reports no additional musculoskeletal complaints and Reports as per HPI Integumentary/Breasts: Skin/Breast: Reports system reviewed and no additional complaints, except as docu and Reports as per HPI Neurologic: Reports system reviewed and no additional complaints, except as documented and Reports as per HPI Psychiatric:
[2023-08-09] MEDS: POTASSIUM CHLORIDE 20 MEQ ER TABLET 40 MEQ PO (15:21)
[2023-08-09] MEDS: HYDROcodone/acetaminophen (*CRX) 5-325 MG TABLET 1 TAB PO (17:46)
[2023-08-09] MEDS: WARFARIN (*PBKC) 2 MG TABLET BY MOUTH (17:53)
--- NOTE | 2023-08-09 20:10 | PC.NURSE ---
Pt returned to unit via bed from OR. Will continue to monitor patients condition.
[2023-08-09] MEDS: ATORVASTATIN 20 MG TABLET PO (20:46)
[2023-08-10] VITALS (7 sets, daily range): BP systolic 109–161; BP diastolic 50–79; PULSE 58–66; RESP 14–20; TEMP 36.3–36.8; O2SAT 93–95
[2023-08-10 06:54] LABS: INR 2.3; Prothrombin Time 26.9 Seconds (11.1-14.7)
[2023-08-10 08:43] LABS: Hematocrit 39.1 % (42.0-52.0); Hemoglobin 12.5 g/dL (14.0-18.0); Mean Corpuscular Hemoglobin 29.8 pg (26-34); Mean Corpuscular Volume 93.1 fl (80-100); Mean Platelet Volume 10.3 fl (7.4-10.4); Platelet Count Result 229 k/mm3 (150-375); Red Cell Distribution Width 13.2 % (11.5-14.5); White Blood Count 7.4 K/mm3 (4.5-10.0)
[2023-08-10 08:49] LABS: Anion Gap 3 mmol/L (8-16); Blood Urea Nitrogen 21 mg/dL (9-20); Calcium 8.4 mg/dL (8.4-10.2); Carbon Dioxide 33 mmol/L (22-30); Chloride 99 mmol/L (98-107); Estimated CRCL calculation 59 ml/min; Estimated Glomerular Filt Rate > 60; Glucose 99 mg/dL (65-110); Potassium 3.6 mmol/L (3.4-5.0); Sodium 135 mmol/L (137-145)
[2023-08-10] MEDS: LORATADINE 10 MG TABLET PO (09:59)
[2023-08-10] MEDS: METOPROLOL SUCCINATE EXT REL 25 MG TABCR PO ×2 (09:59→20:33)
[2023-08-10] MEDS: ASCORBIC ACID 500 MG TABLET 1000 MG PO (10:00)
[2023-08-10] MEDS: DIGOXIN TAB 125 MCG TABLET PO (10:00)
[2023-08-10] MEDS: LIDOCAINE 5% PATCH 1 PATCH TRANSDERM (10:00)
[2023-08-10] MEDS: CITALOPRAM HYDROBROMIDE 20 MG TABLET PO (10:00)
[2023-08-10] MEDS: MULTIVITAMINS THERAPEUTIC TAB (*BKC) 1 TABLET PO (10:00)
[2023-08-10] MEDS: BRIMONIDINE TARTRATE 0.2% OP SOLN 5 ML BTL 1 DROP EACH EYE ×2 (10:01→20:33)
[2023-08-10] MEDS: TIMOLOL MALEATE 0.5% OP SOLN 5 ML BOTTLE 1 DROP EACH EYE ×2 (10:01→20:33)
[2023-08-10] MEDS: HYDROcodone/acetaminophen (*CRX) 5-325 MG TABLET 1 TAB PO ×2 (14:42→20:33)
--- NOTE | 2023-08-10 15:20 | PM.IMPN ---
Progress Note: A&P Assessment and Plan (1) Fracture, rib: Code(s): S22.39XA - Fracture of one rib, unspecified side, initial encounter for closed fracture Status: Acute Assessment and Plan: continue pain management, will give [place] 1 tab q 6 hours, patient did not tolerate Ultram in the past. 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 He is still requiring pain medication. He denies any shortness of breath or chest pain. Repeat CXR today did not show any signs of pneumothorax. Patient preferred to stay one more night for pain control before returning home. Will plan for d/c tomorrow if remains stable. Review of Systems Review of Systems: All systems reviewed & are unremarkable except as noted in HPI and below Exam Narrative: GEN: In no acute distress, well nourished Head: atraumatic Eyes: EOMI, PERRLA ENT: moist mucous membranes Neck: supple Cardiac: RRR No murmur, gallops or friction rubs, peripheral pulses intact. Respiratory: Lungs clear to auscultation Gastrointestinal: soft, non-distended, non-tender, normoactive bowel sounds. : voiding without difficulty. Extremities: moves all extremities well, no edema Skin: clean, dry, intact. No wounds or lesions. Neuro: Alert and oriented x4, cranial nerves intact, no neuro deficits. Psych: normal mood, normal affect, interactive Objective Data Vital Signs Vital Signs: Vital Signs - 24 hr 08/09/23 20:46 08/09/23 19:35 08/10/23 04:30 Temperature 98.3 F 97.7 F Pulse Rate 66 65 66 Respiratory Rate 20 20 Blood Pressure 155/75 H 161/77 H Pulse Oximetry 95 93 Oxygen Delivery 08/10/23 09:56 08/10/23 09:59 08/10/23 10:00 Temperature Pulse Rate 66 66 66 Respiratory Rate 14 Blood Pressure 125/71 Pulse Oximetry 93 Oxygen Delivery 08/10/23 10:00 08/10/23 13:54 Temperature 98.2 F Pulse Rate 61 Respiratory Rate 18 Blood Pressure 109/50 L Pulse Oximetry 95 Oxygen Delivery Room Air Intake/Output Intake/Output: Intake & Output 08/07/23 08/08/23 08/09/23 08/10/23 23:59 23:59 23:59 23:59 Intake Total 2064 466 7279 Balance 0930 633 1795 Meds/Results Medications: Active Medications Generic Name Dose Route Start Last Admin Trade Name Freq PRN Reason Stop Dose Admin Acetaminophen 650 mg 08/09/23 02:54 Acetaminophen 325 Mg Tablet PO Q6H PRN fever or pain Hydrocodone Bitart/Acetaminophen 1 tab 08/09/23 17:34 08/10/23 14:42 Hydrocodone/Acetaminophen (*Crx) 5-325 Mg Tablet PO 1 tab Q6H PRN Administration Pain Rated 4-6 Albuterol 2 puff 08/09/23 02:54 Albuterol Sulfate (*Sp) Aerosol 1 Puff INHALATION Q4HRT PRN Shortness Of Breath Ascorbic Acid 1,000 mg 08/09/23 09:00 08/10/23 10:00 Ascorbic Acid 500 Mg Tablet PO 09/08/23 08:59 1,000 mg DAILY KENYA Administration Atorv
[2023-08-10] MEDS: WARFARIN (*PBKC) 3 MG TABLET BY MOUTH (17:20)
[2023-08-10] MEDS: ATORVASTATIN 20 MG TABLET PO (20:33)
[2023-08-11] MEDS: MORPHINE SULFATE (*CRX) 2 MG/ML INJ IV PUSH (00:50)
[2023-08-11 04:35] VITALS: BP 165/71; PULSE 58; RESP 20; TEMP 36.4; O2SAT 92
[2023-08-11] MEDS: HYDROcodone/acetaminophen (*CRX) 5-325 MG TABLET 1 TAB PO (04:51)
[2023-08-11 07:21] LABS: Hematocrit 43.4 % (42.0-52.0); Hemoglobin 13.7 g/dL (14.0-18.0); Mean Corpuscular HGB Conc 31.6 g/dl (32-36); Mean Corpuscular Hemoglobin 29.3 pg (26-34); Mean Corpuscular Volume 92.7 fl (80-100); Mean Platelet Volume 10.3 fl (7.4-10.4); Platelet Count Result 285 k/mm3 (150-375); Red Blood Count 4.68 M/mm3 (4.6-6.20); Red Cell Distribution Width 12.8 % (11.5-14.5); White Blood Count 9.3 K/mm3 (4.5-10.0)
[2023-08-11 07:30] LABS: Anion Gap 4 mmol/L (8-16); Blood Urea Nitrogen 18 mg/dL (9-20); Calcium 8.7 mg/dL (8.4-10.2); Carbon Dioxide 33 mmol/L (22-30); Chloride 100 mmol/L (98-107); Estimated CRCL calculation 53 ml/min; Estimated Glomerular Filt Rate > 60; Glucose 110 mg/dL (65-110); Sodium 137 mmol/L (137-145)
[2023-08-11 07:39] LABS: INR 2.4
[2023-08-11 08:47] VITALS: BP 157/75; PULSE 60; RESP 14; O2SAT 94
[2023-08-11 09:04] VITALS: PULSE 60
[2023-08-11] MEDS: ASCORBIC ACID 500 MG TABLET 1000 MG PO (09:04)
[2023-08-11] MEDS: CITALOPRAM HYDROBROMIDE 20 MG TABLET PO (09:04)
[2023-08-11] MEDS: BRIMONIDINE TARTRATE 0.2% OP SOLN 5 ML BTL 1 DROP EACH EYE (09:04)
[2023-08-11] MEDS: DIGOXIN TAB 125 MCG TABLET PO (09:04)
[2023-08-11] MEDS: MULTIVITAMINS THERAPEUTIC TAB (*BKC) 1 TABLET PO (09:05)
[2023-08-11] MEDS: LIDOCAINE 5% PATCH 1 PATCH TRANSDERM (09:05)
[2023-08-11] MEDS: TIMOLOL MALEATE 0.5% OP SOLN 5 ML BOTTLE 1 DROP EACH EYE (09:05)
[2023-08-11] MEDS: LORATADINE 10 MG TABLET PO (09:05)
[2023-08-11] MEDS: METOPROLOL SUCCINATE EXT REL 25 MG TABCR PO (09:05)
--- NOTE | 2023-08-11 14:16 | PM.DS ---
DS: Admitting Diagnosis Discharge Date 08/11/23 Admitting Diagnosis rib pain, fall DS: Discharge Diagnosis Discharge Diagnosis (1) Fracture, rib: Code(s): S22.39XA - Fracture of one rib, unspecified side, initial encounter for closed fracture Status: Acute Assessment and Plan: PRN pain medication incentive spirometer PT/ OT - plan to return home at d/c with outpatient PT (2) Gait abnormality: Code(s): R26.9 - Unspecified abnormalities of gait and mobility Status: Acute (3) Fall: Code(s): W19.XXXA - Unspecified fall, initial encounter Status: Acute Assessment and Plan: PT - outpatient (4) Emphysema lung: Code(s): J43.9 - Emphysema, unspecified Status: Chronic Assessment and Plan: continue albuterol as needed (5) Chronic anticoagulation: Code(s): Z79.01 - exterminator termite (current) use of anticoagulants Status: Chronic Assessment and Plan: continue Coumadin (6) Atrial flutter: Qualifiers: Atrial flutter type: unspecified Qualified Code(s): I48.92 - Unspecified atrial flutter Code(s): I48.92 - Unspecified atrial flutter Status: Chronic Assessment and Plan: On coumadin DS: Summary Hospital Course Hospital Course: Patient is a 82 YO male with PMH significant for atrial flutter, emphysema, hypothyroidism, and sleep apnea admitted for left-sided ribcage pain post fall at ground level. Patient denied loss of consciousness, dizziness, lightheadedness, syncope. Denies any cough, sputum production, night sweats, fevers, rigors, chills. Preliminary workup was significant for multiple rib fractures. All other work up unremarkable. Patient will go home today with his , with outpatient PT, PRN pain medication and IS to prevent pneumonia. Status at Discharge Functional status at discharge: uses cane/walker Overall status at discharge: patient is progressing back to baseline Time Spent with Patient Time attestation: Total time spent providing and/or coordinating discharge services: Exam Narrative: GEN: In no acute distress, well nourished Head: atraumatic Eyes: EOMI, PERRLA ENT: moist mucous membranes Neck: supple Cardiac: RRR No murmur, gallops or friction rubs, peripheral pulses intact. Respiratory: Lungs clear to auscultation Gastrointestinal: soft, non-distended, non-tender, normoactive bowel sounds. : voiding without difficulty. Extremities: moves all extremities well, no edema Skin: clean, dry, intact. No wounds or lesions. Neuro: Alert and oriented x4, cranial nerves intact, no neuro deficits. Psych: normal mood, normal affect, interactive DS: Data Data Completed and Pending Labs on day of discharge: Labs from last 24 hours 08/11/23 08/11/23 06:20 06:19 WBC 9.3 RBC 4.68 Hgb 13.7 L Hct 43.4 MCV 92.7 MCH 29.3 MCHC 31.6 L RDW 12.8 Plt Count 285 MPV 10.3 PT 28.0 H INR 2.4 Sodium 137 Potassium 4.0 Chloride 100 Carbon Dioxide 33 H Anion Gap 4 L BUN 18 Creatinine 0.90 Estim Creat Clear Calc 53 Estimated GFR > 60 Glucose 110 Calcium 8.7 Discharge Plan Discharge Attending physician on discharge: Es Springer Discharging Clinician: Abigail Urias Anticipated Discharge Date/Time: 08/11/23 11:03 Patient Disposition: Home, Self-Care Activity: as tolerated Diet: heart healthy Discharge Instructions: Apply an ice pack 20 minutes of every hour you are awake for the first 2 days, then 10 to 20 minutes 3 times daily as needed to reduce pain and swelling. Wrap the ice pack in a cloth before applying to the injured area. You may need pain medicines to keep your pain under control while your bones heal. Take these medicines on the schedule your provider prescribed. To avoid becoming constipated, drink more fluids, eat high-fiber foods, and use stool softeners. To avoid nausea or vomiting, try taking y
== END 2023-08-11 14:25 | disposition home or self-care (01) | DRG 184 ==
LOC: ANHED 18:18 → ANH3MEDSUR 23:00
PROVIDERS: Nurse Practitioner Acute Care; Admitting Provider Internal Medicine; Emergency Provider Emergency Medicine; PCP Family Medicine; Visit Provider Nurse Practitioner
DX: S22.42XA Multiple fractures of ribs, left side, initial encounter for closed fracture (principal); I48.92 Unspecified atrial flutter; I10 Essential (primary) hypertension; J43.9 Emphysema, unspecified; E03.9 Hypothyroidism, unspecified; R26.2 Difficulty in walking, not elsewhere classified; N32.89 Other specified disorders of bladder; N40.0 Benign prostatic hyperplasia without lower urinary tract symptoms; G47.33 Obstructive sleep apnea (adult) (pediatric); F32.A Depression, unspecified; W19.XXXA Unspecified fall, initial encounter; Z79.01 Long term (current) use of anticoagulants; Z87.442 Personal history of urinary calculi; Z87.11 Personal history of peptic ulcer disease; Z87.891 Personal history of nicotine dependence
CPT/HCPCS: 36415; 70450; 71045; 71046; 71260; 72125; 74177; 80048; 80053; 81001; 83690; 84484; 85025; 85027; 85610; 85730; 93005; 96361; 96374; 96375; 96376; 97110; 97161; 97165; 97530; 97535; 99285; A9270; G0378; J1885; J2270; J7030; Q9967

== ENCOUNTER 2024-04-11 08:42 | Outpatient (CLI) | payer MEDICARE, SELFPAY ==
[2024-04-11 09:19] LABS: Basophils Absolute Auto 0.1 K/mm3 (0.0-0.1); Eosinophils Absolute Auto 0.2 K/mm3 (0-0.3); Eosinophils Percent Auto 3.4 % (0-4.4); Hematocrit 42.2 % (42.0-52.0); Hemoglobin 13.5 g/dL (14.0-18.0); Immature Granulocyte Absolute 0.02 K/mm3 (0.00-0.031); Immature Granulocyte Percent A 0.3 % (0-0.5); Lymphocytes Absolute Auto 1.38 K/mm3 (0.9-3.2); Lymphocytes Percent Auto 20.4 % (18.3-44.2); Mean Corpuscular Volume 93.8 fl (80-100); Mean Platelet Volume 9.8 fl (7.4-10.4); Monocytes Absolute Auto 0.8 K/mm3 (0.1-0.6); Monocytes Percent Auto 12.1 % (2.6-8.5); Neutrophils Absolute Auto 4.3 K/mm3 (1.3-6.7); Neutrophils Percent Auto 62.8 % (45.5-73.1); Platelet Count Result 244 k/mm3 (150-375); Red Cell Distribution Width 13.2 % (11.5-14.5); White Blood Count 6.8 K/mm3 (4.5-10.0)
[2024-04-11 09:31] LABS: Anion Gap 6 mmol/L (4-12); Blood Urea Nitrogen 14 mg/dL (9-20); Calcium 9.3 mg/dL (8.4-10.2); Carbon Dioxide 34 mmol/L (22-30); Chloride 99 mmol/L (98-107); Cholesterol 115 mg/dL (0-200); Estimated Glomerular Filt Rate > 60; Glucose 129 mg/dL (65-110); HDL Direct 46 mg/dL; Potassium 4.1 mmol/L (3.4-5.0); Sodium 139 mmol/L (137-145); Triglycerides 68 mg/dL (<150)
[2024-04-11 09:42] LABS: LDL Cholesterol Direct 43 mg/dL
[2024-04-11 11:36] LABS: Digoxin < 0.5 ng/mL (0.8-2.0)
== END 2024-04-11 08:43 | disposition home or self-care (01) ==
PROVIDERS: PCP Family Medicine; Referring Provider Nurse Practitioner Adult Health; Visit Provider Physician Assistant Medical
DX: E03.9 Hypothyroidism, unspecified (principal); I10 Essential (primary) hypertension; I48.92 Unspecified atrial flutter; E78.5 Hyperlipidemia, unspecified; I48.3 Typical atrial flutter
CPT/HCPCS: 36415; 80048; 80061; 80162; 84443; 85025

== ENCOUNTER 2024-08-19 23:04 | Emergency (ER) | payer MEDICARE, SELFPAY ==
--- NOTE | ~2024-08-19 | XR_ITS ---
EXAMINATION: XR knee RT 3V DATE: 08/20/2024 02:50 INDICATION: Right femur pain and bruising. TECHNIQUE: 3 views of right knee were obtained. COMPARISON: None. FINDINGS: Alignment is normal. No fracture. There is mild tricompartmental osteoarthritis. No knee luther int effusion. IMPRESSION: 1. Mild right knee osteoarthritis. Reviewed, dictated and finalized at location A.
--- NOTE | ~2024-08-19 | CT_ITS ---
EXAMINATION: CT LE RT wo con DATE: 08/20/2024 03:26 INDICATION: Right thigh injury and pain. Bruising. TECHNIQUE: Computed tomography (CT) of the right thigh was performed without intravenous contrast. Au tomated exposure control and iterative reconstruction technique were employed. The dose-length produc t was 1077.31 mGy-cm. COMPARISON: Right hip radiographs 08/20/2024 FINDINGS: The prostate is moderately enlarged. There is a right inguinal hernia containing fat. There is a 6 x 4 x 12 cm mass in the anterior right thigh musculature. Subcutaneous fat stranding overlies this area. Bone alignment is normal. No fracture. There is mild right knee and hip osteoarthritis. N o knee joint effusion. IMPRESSION: 1. Mass in the anterior right thigh musculature, likely a hematoma. Reviewed, dictated and finalized at location A.
--- NOTE | ~2024-08-19 | XR_ITS ---
EXAMINATION: XR hip RT 2V w AP pelvis DATE: 08/20/2024 02:50 INDICATION: Right femur pain. Fall. TECHNIQUE: An anteroposterior view of the pelvis and 2 views of right hip were obtained. 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 No acute fracture. There is mild osteoarthritis of the hips. IMPRESSION: 1. Mild osteoarthritis of the hips. Reviewed, dictated and finalized at location A.
[2024-08-19 23:06] VITALS: BP 157/70; PULSE 66; RESP 17; TEMP 36.1; O2SAT 97
--- OUTSIDE RECORDS SUMMARY | 2024-08-19 23:06 | XMS_ITS | Encounter Summary ---
Author Organization [facility] Healthcare Address [address] [place] [address] Care Team Providers Care Education Manager Name Role Phone Lokesh Doll MD Primary Care Provider [phone] Encounter Details Date Type Department Care Team (Late st Contact Info) Description 03/31/2021 Telephone [facility] [address] [place] [id number] Pacheco Linder, RT Social History Tobacco Use Types Packs/Day Years Used Date Smoking Tobacco: Former Cigarettes Q uit: 2001 Smokeless Tobacco: Former Alcohol Use Standard Drinks/Week Comments Not Currently 0 (1 standard drink = 0.6 oz pur e alcohol) Sex and Gender Information Value Date Recorded Sex Assigned at Not on file Legal Sex Male 10:15 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
--- OUTSIDE RECORDS SUMMARY | 2024-08-19 23:06 | XMS_ITS ---
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 Past Plans No past plan information found. Radiation Treatments * No radiation treatments are documented for this patient in [facility]. Treatments may have been administered in another system. Lifetime Dose Tracking * Chemical Lifetime Dose Automatic Entry Manual Entr y Dose Length Product 2,623.9 mGy-cm 2,623.9 mGy-cm 0 mG y-cm
--- OUTSIDE RECORDS SUMMARY | 2024-08-19 23:06 | XMS_ITS | Clinical Summary ---
Author Organization [facility] [employer] Address [address] [place] [address] Care Team Providers Care Pickling Tank Operator Name Role Phone Lokesh Doll MD Primary Care Provider [phone] Source Comments [facility] [employer],non-owned Affiliates and Associated Physician Practices is amultiple site organization consisting of ambulatory clinics and hospital sitesin [place] and [place]. This disclosure is being madepursuant to the Care Everywhere program and may not contain all information available regarding this patient. Last updated 18.[facility] [employer] Allergies No known active allergies Medications * Be aware that medications may not be up to date on this document. Alwaysverify current medications with the patient. Medication Sig Dispensed Refills Start Date End Date Status aspirin EC (ECOTRIN) 81 MG tablet Take 81 mg by mouth once daily Active brimonidine-timolol (COMBIGAN) 0.2-0.5 % ophthalmic solution 1 drop 2 times daily Acti ve citalopram (CELEXA) 20 MG tablet Take 20 mg by mouth once daily Active fexofenadine (FEDE ALLERGY) 180 MG tablet Take 180 mg by mouth once daily Active furosemide (LASIX) 40 MG tablet Take 40 mg by mouth once daily Active gabapentin (NEURONTIN) 300 MG capsule Take 300 mg by mouth once daily Active glucosamine-chondro itin (GLUCOSAMINE CHONDR COMPLEX) 500-400 MG capsule Take 1 capsule by mouth once daily Active tamsulosin (FLOMAX) 0.4 MG capsule Take 0.4 mg by mouth once daily At the same time every day after a meal. Active budesonide-formoter ol (SYMBICORT) 160-4.5 MCG/ACT inhaler Inhale 2 (two) puffs by mouth 2 times daily 01/20/2021 Active apixaban (ELIQUIS) 5 MG tablet Take 1 (one) tablet by mouth 2 times daily 01/20/2021 Active atorvastatin (LIPITOR) 20 MG tablet Take 1 (one) tablet by mouth at bedtime 01/20/2021 Active multivitamins (ONE A DAY) capsule Take 1 capsule by mouth once daily Active acetaminophen (TYLENOL) 325 MG tablet Take 2 (two) tablets by mouth every 6 hours as needed for Fever or Pain 01/20/2021 Active albuterol HFA (PROVENTIL;VENTOLIN ;PROAIR) 108 (90 Base) MCG/ACT inhaler Inhale 2 (two) puffs by mouth every 4 hours as needed for Shortness of Breath or Wheezing 01/20/2021 Active metoprolol succinate XL 24hr (TOPROL XL) 200 MG tablet Take 1 (one) tablet by mouth once daily 01/21/2021 Active digoxin (LANOXIN) 0.125 MG tablet Take 1 (one) tablet by mouth once daily 01/20/2021 Active polyethylene glycol 3350 (MIRALAX) 17 g packet Take 17 (seventeen) g by mouth once daily as needed for Constipation 01/20/2021 Active docusate sodium (COLACE) 100 MG capsule Take 1 (one) capsule by mouth once daily 01/21/2021 Active Active Problems Problem Noted Date Diagnosed Date [...] (COVID -19) 08/05/2020 NSVT (nonsustained ventricular tachycardia) 04/0 10/2019 COPD (chronic obstructive pulmonary disease) 05/2018 HTN (hypertension), benign 02/27/2019 MATT treated with BiPAP 02/27/2019 Tobacco abuse, in remission 02/27/2019 Family History Medical History Relation Name Comments Hypertension Father Cancer Mother Diabetes - Type 2 Mother CAD (Coronary Artery Disease) Neg Hx Heart Failure Neg Hx Lung Disease Neg Hx Relation Name Status Comments Father Mother Social History Tobacco Use Types Packs/Day Years Used Date Smoking Tobacco: Former Cigarettes 1 55 Smokeless Tobacco: Never Alcohol Use Standard Drinks/Week Comments Not Currently 0 (1 standard drink = 0.6 oz pur e alcohol) Sex and Gender Information Value Date Recorded Sex Assigned at Not on file Gender Identity Not on file Sexual Orientation Not on file Last Filed Vital Signs Vital Sign Reading Time Taken Comments Blood Pressure 133/63 01/20/2021 7:33 PM CDT Pulse 63 01/20/2021 7:33 PM CDT Temperature 36.9 C (98.4 F) 01/20/2021 7:33 PM CDT Respiratory Rate 18 01/20/2021 7:33 PM CDT Oxygen Saturation 96% 01/20/2021 7:33 PM CDT Inhaled Oxygen Concentration - - Weight 83 kg (182 lb 15.7 oz) 01/14/2021 2:59 AM CDT Height 170.2 cm (5' 7 ) 01/09/2021 7:38 PM CDT Body Mass Index 28.66 01/09/2021 7:38 PM CDT Plan of Treatment Health Maintenance Due Date Last Done Comments MEDICARE AWV 12 MONTHS 1938 DTAP/TDAP/TD VACCINES (1 - Tdap) 1957 PNEUMOCOCCAL VACCINE 50+ (1 of 2 - PCV) 1957 ZOSTER VACCINE (1 of 2) 1988 Respiratory Syncytial Virus (RSV) Vaccine Pt: or over 60 yrs (1 - 1-dose 75+ series) 2013 COVID-19 VACCINE (2023-2 5 season) 2024 INFLUENZA VACCINE (#1) 2024 DEPRESSION SCREENING 05/30/2024 HEPATITIS B VACCINE Aged Out No longe r eligible based on patient's age to complete this topic HIB VACCINE Aged Out No longer eligi ble based on patient's age to complete this topic HPV VACCINE Aged Out No longer eligi ble based on patient's age to complete this topic MENINGOCOCCAL (Group B) VACC INE SHARED DECISION-MAKING Aged Out No longer eligibl e based on patient's age to complete this topic MENINGOCOCCAL GROUPS A/C/Y/W VACCINE Aged Out No longer eligible b ased on patient's age to complete this topic Advance Directives * LIMITED RESUSCITATION-PRIOR AND AFTER ARREST (Latest Code Status on File) Date Activated Date Inactivated Comments 01/10/2021 11:48 AM 01/20/2021 9:17 PM Question Answer Comments Limited Resuscitation: No Chest Compress ionNo Intubation, No Invasive Ventilation Care Teams Pickling Tank Operator Relationship Specialty Start Date End Date Lokesh Doll MD [address] [place] [address] PCP - General 01/11/21
--- OUTSIDE RECORDS SUMMARY | 2024-08-19 23:06 | XMS_ITS | Referral Summary ---
Author Organization [facility] [address] [facility] [address] Address [address] [place] [address] Care Team Providers Care Can Feeder Name Role Phone Lokesh Doll MD Primary Care Provider [phone] Encounters Date Type Department Care Team Description 07/02/2024 Telephone [facility] Cardiology [address] [place] [address] Charly Lovell MD Med Refill from Last 3 Months Allergies Active Allergy Reactions Criticality Noted Date Comments Theophylline Unknown 02/27/2019 Medications citalopram (CeleXA) 20 mg tablet Take 1 tablet (20 mg total) by mouth daily Active furosemide (LASIX) 40 mg tablet Take 1 tablet (40 mg total) by mouth daily Active fexofenadine (FEDE) 180 mg tablet Take 1 tablet (180 mg total) by mouth daily Active albuterol HFA (PROVENTIL HFA,VENTOLIN HFA,PROAIR HFA) 90 mcg/actuation inhaler Inhale 2 puffs every 6 (six) hours as needed for wheezing Active ascorbic acid (VITAMIN C) 1,000 mg tablet Take 1 tablet (1,000 mg total) by mouth daily Active multivitamin capsule Take 1 capsule by mouth daily Active glucosamine-cho ndroitin 500-400 mg tablet Take 1 tablet by mouth 2 (two) times a day Active acetaminophen (TYLENOL) 500 mg tablet Take 1 tablet (500 mg total) by mouth every 6 (six) hours as needed for pain Active melatonin tablet Take by mouth Active atorvastatin (LIPITOR) 20 mg tablet Take 1 tablet (20 mg total) by mouth nightly at bedtime. 02/25/2021 Active cephalexin (KEFLEX) 500 mg capsule Take 1 capsule (500 mg total) by mouth daily Active Jantoven 2 mg tablet 1 tablet (2 mg total) daily Warfarin 12/11/2022 Active metoprolol XL (TOPROL-XL) 25 mg extended release tabletIndicatio ns:Typical atrial flutter (HCC) Take 1 tablet (25 mg total) by mouth daily 90 tablet 3 04/03/2024 04/03/20 25 Active digoxin (LANOXIN) 125 mcg (0.125 mg) tabletIndicatio ns:Typical atrial flutter (HCC) Take 1 tablet (125 mcg total) by mouth every morning 90 tablet 3 07/02/2024 Active digoxin (LANOXIN) 125 mcg (0.125 mg) tablet Take 1 tablet (125 mcg total) by mouth daily 15 tablet 07/02/2024 07/02/19 26 Active Active Problems Problem Noted Date Diagnosed Date Mixed hyperlipidemia 01/12/2022 Bleeding ulcer 07/10/2021 Typical atrial flutter 02/11/2021 Chronic anticoagulation 02/11/2021 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 Gender Identity Male 08/27/2019 10:41 AM CDT Sexual Orientation Straight 08/27/2019 10 :41 AM CDT Last Filed Vital Signs Vital Sign Reading Time Taken Comments Blood Pressure 146/68 04/03/2024 11:01 AM PIPE ROLLER Pulse 64 04/03/2024 11:01 AM PIPE ROLLER Temperature 36.8 C (98.2 F) 12/23/2020 2:53 PM CDT Respiratory Rate 16 04/16/2021 4:34 PM PIPE ROLLER Oxygen Saturation 96% 04/03/2024 11:01 AM PIPE ROLLER Inhaled Oxygen Concentration - - Weight 84.4 kg (186 lb) 04/03/2024 11:01 AM PIPE ROLLER Height 170.2 cm (5' 7 ) 04/03/2024 11:01 AM PIPE ROLLER Body Mass Index 29.13 04/03/2024 11:01 AM PIPE ROLLER Plan of Treatment Not on file Insurance MEDICARE [employer] [facility] [place] [address] MEDICARE [facility] MEDICARE [facility] Care Teams Can Feeder Relationship Specialty Start Date End Date Lokesh Doll MD PCP - General Family Medicine 12/27/18
--- OUTSIDE RECORDS SUMMARY | 2024-08-19 23:06 | XMS_ITS | Encounter Summary ---
Author Organization [facility] Healthcare Address [address] [place] [address] Care Team Providers Care Foster Care Case Manager Name Role Phone Lokesh Doll MD Primary Care Provider [phone] Encounter Details Date Type Department Care Team (Late st Contact Info) Description 04/13/2021 Telephone 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
--- OUTSIDE RECORDS SUMMARY | 2024-08-19 23:06 | XMS_ITS | Encounter Summary ---
Author Organization [facility] Health Address [address] [facility] [place] [address] Care Team Providers Care Data Entry Supervisor Name Role Phone Lokesh Doll MD Primary Care Provider [phone] Encounter Details Date Type Department Care Team (Late st Contact Info) Description 10/07/2021 Lab Requisition [facility] [address] [place] [address] [place] [address] Social History Tobacco Use Types Packs/Day Years Used Date Smoking Tobacco: Former Cigarettes 1 55 Smokeless Tobacco: Never Alcohol Use Standard Drinks/Week Comments Not Currently 0 (1 standard drink = 0.6 oz pur e alcohol) Sex and Gender Information Value Date Recorded Sex Assigned at Not on file Gender Identity Not on file Sexual Orientation Not on file documented as of this encounter Functional Status Functional Status Response Date of Assess ment Is person deaf or have serious hearing difficult y? Yes 01/20/2021 Is person blind or have serious difficulty seein g? No 01/20/2021 Does person have serious dif ficulty walking/climbing stairs? Yes 01/20/2021 Does person have difficulty dressing/bathing? Ye s 01/20/2021 Does person have difficulty doing errands alone? Yes 01/20/2021 Cognitive Status Response Date of Assessm ent Does person have difficulty concentrating/remembering/making decisions? Yes 01/20/2021 documented as of this encounter Plan of Treatment Not on file documented as of this encounter Procedures Procedure Name Priority Date/Time Associated Diagnosis Comments DERMATOPATHOLOGY Routine 10/06/2021 12:0 0 AM CDT documented in this encounter Results * DERMATOPATHOLOGY (10/06/2021 12:00 AM CDT) Case Report Dermatopathology Report Case: [id number] Authorizing Provider: Quan Moon MD Collected: 10/06/2021 12:00 AM Ordering Location: [facility] Received: 10/07/2021 12:13 PM Pathologist: Bernarda Alves MD Specimen: Skin, left lat flank 2:23 PM CDT DERMATOPATHOLOGY LABORATORY Final Diagnosis Specimen A. 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 2:23 PM CDT DERMATOPATHOLOGY LABORATORY Gross Description Specimen A: Received is one formalin filled container labeled with the patient's name and designated left lat flank. The specimen consists of a [id number] excision, submitted in multiple pieces. Jar 0. 2:23 PM CDT DERMATOPATHOLOGY LABORATORY Microscopic Description Specimen A. SKIN, left lat flank: There are typical adipocytes with minimal fibrous trabeculae. 2 2:23 PM CDT DERMATOPATHOLOGY LABORATORY Disclaimer An external and internal positive and negative controls are appropriate for the histochemical, immunohistochemical and immunofluorescence stain(s) in this case (if any), except where stated explicitly. The performance characteristics of the stain(s) cited in this report were developed and its performance characteristic determined by the Dermatopathology Laboratory at [facility], directed by Dr. Samm Roche. These tests need not be, and therefore are not, approved by the [place] Food and Drug Administration. The tests are used for clinical purposes. Billing Codes Specimen Charges Stain Charges 48589 1 2 2:23 PM CDT DERMATOPATHOLOGY LABORATORY Embedded Images 2 2:23 PM CDT DERMATOPATHOLOGY LABORATORY Pathology/Cytolog y TISSUE SPECIMEN FROM SKIN / Unknown 10/06/2021 10/07/2021 12:13 PM CDT Quan Moon MD LAB - PATHOLOGY/CYTO LOGY ORDERABLES DERMATOPATHOLOGY LABORATORY [facility] - Department of Dermatology [address], [address] [phone] documented in this encounter Visit Diagnoses Not on filedocumented in this encounter Care Teams Data Entry Supervisor Relationship Specialty Start Date End Date Lokesh Doll MD [address] [place] [id number] PCP - General 01/11/21 documented as of this encounter
--- OUTSIDE RECORDS SUMMARY | 2024-08-19 23:06 | XMS_ITS | Clinical Summary ---
Author Organization [facility] Address [facility] [place] [address] Care Team Providers Care Bench Hand Name Role Phone Lokesh Doll MD Primary Care Provider [phone] Active Problems Problem Noted Date Diagnosed Date Sensorineural hearing loss, bilateral 12/26/2020 Social History Tobacco Use Types Packs/Day Years Used Date Smoking Tobacco: Never Assessed Sex and Gender Information Value Date Recorded Sex Assigned at Not on file Legal Sex Male 10:22 PM PAROLE AGENT Gender Identity Not on file Sexual Orientation Not on file Plan of Treatment Health Maintenance Due Date Last Done Comments DTaP, Tdap and Td Vaccines ( 1 - Tdap) 1957 Zoster Vaccines (1 of 2) 1988 Annual Medicare Wellness Visit 12/07/2003 RSV Immunization or 60+ Years (1 - 1-dose 75+ series) 2013 Pneumococcal Vaccine: 65+ Years (2 of 2 - PPSV23 or PCV20) 03/08/2019 03/08/2018 COVID-19 Vaccine (3 - 2023-2 5 season) 2024 08/27/2020, 07/29/2020 Influenza Adult (#1) 2024 03/03/2020 Meningococcal B Vaccine Aged Out No l onger eligible based on patient's age to complete this topic Meningococcal Vaccine Aged Out No zhou robinson eligible based on patient's age to complete this topic RSV Immunizations Under 20 Months Aged Out No longer eligible b ased on patient's age to complete this topic Insurance [facility] [address] MEDICARE Care Teams Bench Hand Relationship Specialty Start Date End Date Lokesh Doll MD [address] [place] [address] PCP - General FAMILY PRACTICE 12/23/20
--- OUTSIDE RECORDS SUMMARY | 2024-08-19 23:06 | XMS_ITS | Clinical Summary ---
Author Organization [facility] Address [address] [place] [address] Care Team Providers Care Rail Car Painter/Sandblaster Name Role Phone Lokesh Doll Primary Care Provider [phone] Social History Tobacco Use Types Packs/Day Years Used Date Smoking Tobacco: Never Assessed Sex and Gender Information Value Date Recorded Sex Assigned at Not on file Legal Sex Male 3:54 PM EDT Gender Identity Not on file Sexual Orientation Not on file Plan of Treatment Not on file Care Teams Rail Car Painter/Sandblaster Relationship Specialty Start Date End Date Lokesh Doll [address] [place] [phone] PCP - General 01/16/21
--- OUTSIDE RECORDS SUMMARY | 2024-08-19 23:06 | XMS_ITS | Clinical Summary ---
Author Organization [facility] [place] [address] Address [address] [place] [address] Care Team Providers Care Management Trainee Name Role Phone Lokesh Doll MD Primary Care Provider + [phone] Allergies Active Allergy Reactions Criticality Noted Date [...] edema 02/27/2019 MATT treated with BiPAP 02/27/2019 Encounters Date Type Department Care Team Description 07/02/[address] [facility] Card[facility] [address] [place] [address] Charly Lovell MD Med Refill from Last 3 Months Surgical History Surgery Date Site/Laterality Comments KIDNEY STONE SURGERY 11/27/2010 - 12/27/2010 KIDNEY STONE SURGERY 03/28/2012 HERNIA REPAIR COLONOSCOPY 05/30/2007 - 05/29/2008 FL FLUORO GUIDED LUMBAR PUNCTURE 03/05/2021 Right FL FLUORO GUIDED LUMBAR PUNCTURE 04/16/2021 Right Medical History Medical History Date Comments Hypertension Acid indigestion Cancer (HCC) Glaucoma Cataracts, bilateral COPD (chronic obstructive pulmonary disease) (HC C) Sleep apnea Emphysema lung (HCC) Kidney stones Allergic rhinitis GI (gastrointestinal bleed) 2021 Family History Medical History Relation Name Comments Liver disease Brother 1 Aortic aneurysm Brother 2 COPD Brother 3 LeeBob COPD Brother 4 Ray COPD Father BR Relation Name Status Comments Brother 1 (Age 59) Brother 2 (Age 66) Brother 3 LeeBob (Age 73) Brother 4 Ray (Age 65) Father BR (Age 80) Mother (Age 85) Social History Tobacco Use Types Packs/Day Years Used Date Smoking Tobacco: Former Cigarettes 0.5 20 Q uit: 2001 Smokeless Tobacco: Never Comments:Already quit about 20 years ago. Alcohol Use Standard Drinks/Week Comments Not Currently 0 (1 standard drink = 0.6 oz pur e alcohol) Sex and Gender Information Value Date Recorded Sex Assigned at Not on file Legal Sex Male 10:15 AM [employer] Gender Identity Male 08/27/2019 10:41 AM CDT Sexual Orientation Straight 08/27/2019 10 :41 AM CDT Obstetrics History Last Filed Vital Signs Vital Sign Reading Time Taken Comments Blood Pressure 146/68 04/03/2024 11:01 AM [employer] Pulse 64 04/03/2024 11:01 AM [employer] Temperature 36.8 C (98.2 F) 12/23/2020 2:53 PM CDT Respiratory Rate 16 04/16/2021 4:34 PM [employer] Oxygen Saturation 96% 04/03/2024 11:01 AM [employer] Inhaled Oxygen Concentration - - Weight 84.4 kg (186 lb) 04/03/2024 11:01 AM [employer] Height 170.2 cm (5' 7 ) 04/03/2024 11:01 AM [employer] Body Mass Index 29.13 04/03/2024 11:01 AM [employer] Plan of Treatment Health Maintenance Due Date Last Done Comments Depression Screening 1938 Fall Risk Assessment 1940 Hepatitis B Screening 1958 Zoster Vaccine (1 of 2) 1988 Well Visit 65+ 12/07/2003 Influenza Vaccine (#1) 2024 9, 03/08/2018, 04/04/2016, Additional history exists DTaP/Tdap/Td Vaccine (2 - Td or Tdap) 09/19/2028 09/19/2018 Pneumococcal vaccine 65+ Completed 03/29/2019, 02/27 Insurance MEDICARE [facility] [place] [address] [place] [address] MEDICARE [facility] MEDICARE [facility] Care Teams Management Trainee Relationship Specialty Start Date End Date Lokesh Doll MD PCP - General Family Medicine 12/27/18
--- OUTSIDE RECORDS SUMMARY | 2024-08-19 23:07 | XMS_ITS | CONTINUITY OF CARE DOCUMENT ---
Author Name jose elsaerika Address Unknown Organization [facility] Address [address] [place] [address] Phone [phone] Care Team Providers Care Tiler Name Role Phone Reji WALL, Vianey Unavailable DANIEL WALL, YANDEL F Unavailable DANIEL WALL, YANDEL F Unavailable PROBLEMS Condition Status Date Provider Notes CHF completed - Vianey Mendoza MD PALPITATIONS NL ECHO AND HOL TER active Vianey Mendoza MD EDEMA active Vianey Mendoza MD SLEEP APNEA-ON CPAP active ? Vianey Mendoza MD BLADDER CANCER active ? Vianey Mendoza MD HYPERTENSION, ESSENTIAL NL STRESS ,ECHO IN 06/07 active Vianey Mendoza MD ENCOUNTERS Date Type Provider Location Encounter Diag nosis - In-person encounter Office Visit Vianey Mendoza MD [place] [facility] - In-person encounter Office Visit Vianey Mendoza MD [place] [facility] - In-person encounter Office Visit Vianey Mendoza MD [place] [facility] - In-person encounter Office Visit Vianey Mendoza MD [place] [facility] - In-person encounter Office Visit Vianey Mendoza MD [facility] Office - In-person encounter Office Visit Vianey Mendoza MD [facility] Office - In-person encounter Office Visit Vianey Mendoza MD [place] [facility] - In-person encounter Office Visit Vianey Mendoza MD [place] [facility] - In-person encounter Office Visit Vianey Mendoza MD [place] [facility] - In-person encounter Office Visit Vianey Mendoza MD [place] [facility] - In-person encounter Office Visit Vianey Mendoza MD [place] [facility] - In-person encounter Office Visit Vianey Mendoza MD [place] [facility] CHFPALPITATIONS NL ECHO AND HOLTER HYPERTENSION, ESSENTIAL NL STRESS ,ECHO IN 06/07 - In-person encounter Office Visit Vianey Mendoza MD [facility] Office PALPITATIONS NL ECHO AND HOLTER EDEMASLEEP APNEA-ON CPAPBLADDER CANCER VITAL SIGNS Date Observation Value Provider Body Mass Index (Ratio) 31.51 kg/m2 Bony Mendoza MD blood pressure, cuff size regular Ani Ramseynaina PradoArndt blood pressure, diastolic 64 mm[Hg] Ani Quiñones Arndt blood pressure, systolic 142 mm[Hg] Beth Arndt oxygen saturation, oximetry 97 % Zeny Arndt respiratory rate E&M 18 /min Arabella goodwin Arndt pulse rate 64 /min Zeny Ramos katieomar weight E&M 201.2 [lb_av] Zeny beyeromar height E&M 67 [in_i] Zeny Ramos [facility] Body Mass Index (Ratio) 31.95 kg/m2 Bony Mendoza MD blood pressure, cuff size regular Tom rri Bren blood pressure, diastolic 78 mm[Hg] Ke rri Bren blood pressure, systolic 150 mm[Hg] Forrest Correia oxygen saturation, oximetry 96 % Nadja Correia respiratory rate E&M 16 /min Nadja robin pulse rate 66 /min Nadja Carroll er weight E&M 204 [lb_av] Nadja Carroll lder height E&M 67 [in_i] Nadja Carroll lder blood pressure, diastolic 72 mm[Hg] Ani Arndt blood pressure, systolic 134 mm[Hg] Beth Arndt pulse rate 78 /min Zeny lobo oxygen saturation, oximetry 98 % Zeny Arndt respiratory rate E&M 18 /min Arabella Arndt Body Mass Index (Ratio) 30.51 kg/m2 Ariane Arndt weight E&M 194.8 [lb_av] Zeny beyeron Body Mass Index (Ratio) 30.54 kg/m2 Christa Mccord blood pressure, ward tolic, second observation 80 mm[Hg] Lily Mccord blood pressure, syst olic, second observation 144 mm[Hg] Lily Mccord blood pressure, diastolic 80 mm[Hg] Na rhett Mccord blood pressure, systolic 144 mm[Hg] Thea michael Mccord pulse rate 92 /min Lily Mccord oxygen saturation, oximetry 97 % Lily Mccord respiratory rate E&M 17 /min Lily Mccord weight E&M 195 [lb_av] Lily Mccord blood pressure, diastolic 80 mm[Hg] Ta ryder Hamilton blood pressure, systolic 130 mm[Hg] Jaime Hamilton Body Mass Index (Ratio) 28.77 kg/m2 Nazia Hamilton pulse rate 65 /min Daya Hamilton oxygen saturation, oximetry 97 % Daya Hamilton respiratory rate E&M 16 /min aDya Hamilton weight E&M 183 [lb_av] Daya Hamilton height E&M 67 [in_i] Daya Hamilton blood pressure, diastolic 70 mm[Hg] Ani galvan O'Mohsen blood pressure, systolic 130 mm[Hg] Beth lai O'Mohsen pulse rate 74 /min Ciera O'Mohsen oxygen saturation, oximetry 96 % Ciera O'Mohsen respiratory rate E&M 16 /min Ciera O'Mohsen weight E&M 181 [lb_av] Ciera O'Mohsen blood pressure, diastolic 76 mm[Hg] To micah Mendoza MD blood pressure, systolic 148 mm[Hg] Hernán Mendoza MD pulse rate 67 /min Vianey Mendoza MD oxygen saturation, oximetry 96 % Vianey Mendoza MD respiratory rate E&M 16 /min Vianey Mendoza MD weight E&M 177 [lb_av] Vianey Mendoza MD blood pressure, diastolic 75 mm[Hg] Da anselmo Garrison blood pressure, systolic 130 mm[Hg] Jose Garrison pulse rate 72 /min Jeny Garrison oxygen saturation, oximetry 96 % Jeny Garrison respiratory rate E&M 16 /min Drew Garrison weight E&M 166.5 [lb_av] Jeny Garrison blood pressure, diastolic, left arm 91 mm [Hg] Ros Jennings MA blood pressure, systolic, left arm 143 mm [Hg] Ros Jennings MA blood pressure, diastolic, right arm 86 m m[Hg] Ros Jennings MA blood pressure, systolic, right arm 151 m m[Hg] Ros Jennings MA oxygen saturation, oximetry 97 % Ros Jennings MA blood pressure, diastolic 91 mm[Hg] Mesha Jennings MA blood pressure, systolic 143 mm[Hg] Lola Jennings MA pulse rate 51 /min Ros Jennings MA respiratory rate E&M 16 /min Ros Jennings MA weight E&M 168 [lb_av] Ros Dick SALMERON pulse rate 62 /min Chandni Aly oxygen saturation, oximetry 96 % Chandni Aly respiratory rate E&M 16 /min Chandni arthur weight E&M 164 [lb_av] Chandni Aly blood pressure, diastolic 68 mm[Hg] Stephanie seph [place] blood pressure, systolic 122 mm[Hg] Nehemiah ortega [place] pulse rate 80 /min Sheldon [place] oxygen saturation, oximetry 96 % Sheldon Manacoyusef respiratory rate E&M 16 /min Sheldon [place] weight E&M 166 [lb_av] Sheldon Mac blood pressure, diastolic 88 mm[Hg] Ede Carrillo blood pressure, systolic 158 mm[Hg] Arias pulse rate 60 /min Patricia Carrillo respiratory rate E&M 16 /min Patricia macedo oxygen saturation, oximetry 97 % Patricia Carrillo weight E&M 168 [lb_av] Patricia Carrillo blood pressure, diastolic 80 mm[Hg] Ca alex Aly blood pressure, systolic 152 mm[Hg] Terence Aly pulse rate 64 /min Chandni Aly oxygen saturation, oximetry 97 % Chandni Aly respiratory rate E&M 16 /min Chandni arthur weight E&M 167 [lb_av] Chandni Aly ALLERGIES Allergy Name Onset Date Reaction Criticality Status THEALAIR Low Criticality active RESULTS Date Observation Value Provider Reference Range Interpretation Location B-type natriuretic peptide 28 pg/mL [facility] <100 Normal thyroid stimulating hormone, serum 2.78 u[IU]/mL [facility] 0.40-4.50 Normal basophils as percent of blood leukocytes 0.4 % [facility] Normal eosinophils as percent of blood leukocytes 1.2 % [facility] Normal monocyte count, blood 7.9 % [facility] Normal lymphocyte count, blood 23.0 % [facility] Normal neutrophils as percent of blood leukocytes 67.5 % [facility] Normal basophils, absolute, manual 23 cells/mcL [facility] 0-200 Normal eosinophils, absolute, manual 70 cells/mcL [facility] 15-500 Normal monocytes, absolute, manual 458 cells/mcL [facility] 200-950 Normal lymphocytes, absolute 1334 CELLS/UL [facility] 850-3900 Normal Absolute Neutrophil count 3915 cells/mcL [facility] 8150-2586 Normal platelet count 299 THOUSAND/UL [facility] 140-400 Normal red blood cell distribution width 14.2 % [facility] 11.0-15.0 Normal mean corpuscular hemoglobin concentration, RBC 33.4 G/DL [facility] 32.0-36.0 Normal mean corpuscular hemoglobin, RBC 30.9 pg [facility] 27.0-33.0 Normal mean corpuscular volume, RBC 92.5 fL [facility] 80.0-100.0 Normal hematocrit, blood 40.5 % [facility] 38.5-50.0 Normal hemoglobin electrophoresis, blood 13.5 [facility] 13.2-17.1 Normal erythrocyte (RBC) count 4.38 MILLION/UL [facility] 4.20-5.80 Normal leukocyte (white blood cells) count, blood 5.8 THOUSAND/UL [facility] 3.8-10.8 Normal alanine aminotransferase (SGPT), serum 17 1/L [facility] 9-60 Normal aspartate aminotransferase (SGOT), serum 19 1/L [facility] 10-35 Normal alkaline phosphatase, serum 75 1/L [facility] 40-115 Normal bilirubin, serum, total 0.5 mg/dL [facility] 0.2-1.2 Normal albumin/globulin ratio, serum 1.8 (calc) [facility] 1.0-2.1 Normal globulins, serum, total 2.3 G/DL (CALC) [facility] 2.1-3.7 Normal albumin, serum 4.2 g/dL [facility] 3.6-5.1 Normal protein, total, serum 6.5 g/dL [facility] 6.2-8.3 Normal calcium, serum 9.2 mg/dL [facility] 8.6-10.2 Normal carbon dioxide, venous blood 23 mmol/L [facility] 21-33 Normal chloride, serum 102 mmol/L [facility] 98-110 Normal potassium, serum 4.5 mmol/L [facility] 3.5-5.3 Normal sodium, serum 139 mmol/L [facility] 135-146 Normal urea nitrogen/creatinine ratio, serum NOT APPLICABLE (calc) [facility] 6-22 Estimated Glomerular Filtration Rate (calc) >60 mL/min/1.73m2 [facility] > OR = 60 Normal creatinine, serum 0.88 mg/dL [facility] 0.67-1.54 Normal urea nitrogen, blood 15 mg/dL [facility] 7-25 Normal blood glucose, random 124 mg/dL [facility] 65-99 High HISTORY OF MEDICATION USE Medication Status Instructions Dates Provider Indications Com ments HYDROCHLOROTHIAZIDE 12.5 MG ORAL TABLET completed Take 1 tab daily - Lily Mccord FUROSEMIDE 40 MG ORAL TABLET active 1 tab by mouth daily Ciera Go HYDROCHLOROTHIAZIDE 12.5 MG ORAL CAPSULE completed ONE TAB. DAILY - Daya Hamilton LOSARTAN POTASSIUM 50 MG ORAL TABLET active 1 tab po daily Amadeo Mednez FEXOFENADINE HCL 180 MG ORAL TABLET active 1 tab by mouth daily Vianey Mendoza MD COLESTID GRANULES completed 1 gm tab by mouth daily - Ciera Go TAMSULOSIN HCL 0.4 MG ORAL CAPSULE active 1 tab by mouth daily Vianey Mendoza MD CELEXA 20 MG ORAL TABLET active 1 taqb by mouth daily Vianey Mendoza MD HYDROCHLOROTHIAZIDE 12.5 MG ORAL CAPSULE completed ONE TAB. DAILY - Vianey Mendoza MD COZAAR 50 MG ORAL TABLET completed ONE TAB. DAILY (replaces your avalide) - Vianey Mendoza MD SENIOR MULTIVITAMIN PLUS ORAL TABLET active 1 tablet by mouth daily Sheldon Mac VITAMIN C-MICHELLE HIPS 1000 MG ORAL TABLET active 1 tablet by mouth daily Sheldon Mac GLUCOSAMINE-CHONDROITI N-MSM TABLET active twice daily Ros Jennings MA MULTIVITAMINS ORAL CAPSULE completed once daily - Sheldon Mac RAPAFLO 8 MG ORAL CAPSULE completed once daily - Vianey Mendoza MD HYDROCHLOROTHIAZIDE 12.5 MG ORAL CAPSULE completed ONE TAB. DAILY - Ros Jennings MA RANEXA 1000 MG ORAL TABLET EXTENDED RELEASE 12 HOUR completed ONE TAB. TWICE DAILY for chronic angina - Ros Jennings MA LEXAPRO 10 MG ORAL TABLET completed ONE TAB. DAILY - Vainey Mendoza MD AVALIDE 150-12.5 MG ORAL TABLET completed ONE TAB. DAILY - Ariane Barger RN LASIX 20 MG ORAL TABLET completed 1 tablet daily - Vianey Mendoza MD ASPIRIN 81 MG ORAL TABLET active ONE TAB. DAILY Ros Jennings MA SOCIAL HISTORY Date Observation Value Provider social history E&M Marital Statu s: L rachel with family/friends E thnicity: J ob Status: Retired Smoking History: Yusef hcavez is a former smoker. Vianey Mendoza MD social history reviewed E&M revi ewed - no changes required Vianey Mendoza MD number of grandchildren Vianey Mendoza MD T rachel Mendoza MD physical exercise, f requency, days per week no Zeny Arndt alcohol use, average drinks per day none Zeny Arndt caffeine use, averag e drinks per day yes Zeny Arndt drug use none Zeny lobo smoking status Former smoker Zeny Reyes social history reviewed E&M revi ewed - no changes required Vianey Mendoza MD physical exercise, f requency, days per week no Nadja Bren alcohol use, average drinks per day none Nadja Gutierreznickie caffeine use, averag e drinks per day yes Nadja Bren drug use none Nadja Carroll donald smoking status Former smoker Nadja sutherlandcarla social history reviewed E&M revi ewed - no changes required Vianey Mendoza MD physical exercise, f requency, days per week no Zeny Arndt alcohol use, average drinks per day none Zeny Arndt caffeine use, averag e drinks per day yes Zeny Arndt drug use none Zeny lobo smoking status Former smoker Zeny Reyes social history reviewed E&M revi ewed - no changes required Vianey Mendoza MD smoking/tobacco cess ation, patient education and counseling yes Lily Mccord physical exercise, f requency, days per week no Lily Mccord alcohol use, average drinks per day none Lily Mccord caffeine use, averag e drinks per day yes Lily Mccord drug use none Lily Mccord smoking status Former smoker Lily hallman social history reviewed E&M reviewed Vianey Mendoza MD smoking status former smoker Daya Floreswero rodriguez social history reviewed E&M reviewed Vianey Mendoza MD social history reviewed E&M reviewed Vianey Mendoza MD social history reviewed E&M reviewed Vianey Mendoza MD social history reviewed E&M reviewed Vianey Mendoza MD social history reviewed E&M reviewed Vianey Mendoza MD social history reviewed E&M reviewed Vianey Mendoza MD social history reviewed E&M reviewed Vianey Mendoza MD social history E&M Marital Statu s: L rachel with family/friends E thnicity: J ob Status: Retired Mira Walter RN physical exercise, f requency, days per week no Mira Walter RN drug use none Mira chew RN social history reviewed E&M reviewed Mira Walter RN caffeine use, averag e drinks per day yes [facility] alcohol use, average drinks per day none [facility] number of years as a smoker 10 years or m ore [facility] smoking status Quit [facility] MENTAL STATUS Date Observation Value Provider assessment of judgme nt and insight E&M Alert and oriented to time, place and person. Mood and affect are normal. Vianey Mendoza MD assessment of judgme nt and insight E&M Alert and oriented to time, place and person. Mood and affect are normal. Vianey Mendoza MD assessment of judgme nt and insight E&M Alert and oriented to time, place and person. Mood and affect are normal. Vianey Mendoza MD assessment of judgme nt and insight E&M Alert and oriented to time, place and person. Mood and affect are normal. Vianey Mendoza MD assessment of judgme nt and insight E&M Alert and oriented to time, place and person. Mood and affect are normal. Vianey Mendoza MD assessment of judgme nt and insight E&M Alert and oriented to time, place and person. Mood and affect are normal. Vianey Mendoza MD assessment of judgme nt and insight E&M Alert and oriented to time, place and person. Mood and affect are normal. Vianey Mendoza MD assessment of judgme nt and insight E&M Alert and oriented to time, place and person. Mood and affect are normal. Vianey Mendoza MD assessment of judgme nt and insight E&M Alert and oriented to time, place and person. Mood and affect are normal. 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 MEDICARE Medicare [id number] ADVANCE DIRECTIVES Name Date DISCUSSED - NO DECISION MADE TREATMENT PLAN Date Name Performer Cardiology Follow up Vianey cheatham MD Cardiology Follow up Vianey cheatham MD Cardiology Follow up Vianey cheatham MD Cardiology Follow up Vianey cheatham MD Cardiology Follow up Vianey cheatham MD Cardiology Follow up Vianey cheatham MD Cardiology Follow up Vianey cheatham MD Cardiology Follow up Vianey cheatham MD Cardiology Vianey Mendoza MD Cardiology Vianey Mendoza MD Cardiology Vianey Mendoza MD Cardiology Vianey Mendoza MD follow up : T he following medications were removed from the medication list: Hydrochlorothiazide 12.5 Mg Tabs (Hydrochlorothiazide) ..... Take 1 tab daily His updated medication list for this problem includes: Aspirin 81 Mg Tabs (Aspirin) ..... One tab. daily Losartan Potassium 50 Mg Tabs (Losartan potassium) ..... 1 tab po daily Furosemide 40 Mg Tabs (Furosemide) ..... 1 tab by mouth daily Orders: E KG (CPT-08799) BP today: 144/80 P rior BP: 130/80 (06/08/2012) Labs Reviewed: C reat: 0.88 (01/25/2009) Vianey Mendoza MD follow up: H is updated medication list for this problem includes: Aspirin 81 Mg Tabs (Aspirin) ..... One tab. daily Orders: E KG (CPT-96499) Vianey Mendoza MD follow up Vianey Mendoza MD follow up Vianey Mendoza MD follow up: T he following medications were removed from the medication list: Hydrochlorothiazide 12.5 Mg Caps (Hydrochlorothiazide) ..... One tab. daily His updated medication list for this problem includes: Aspirin 81 Mg Tabs (Aspirin) ..... One tab. daily Losartan Potassium 50 Mg Tabs (Losartan potassium) ..... 1 tab po daily Furosemide 40 Mg Tabs (Furosemide) ..... 1 tab by mouth daily BP today: 130/80 P rior BP: 130/70 (06/04/2011) Labs Reviewed: C reat: 0.88 (01/25/2009) Vianey Mendoza MD follow up with echo Vianey Mendoza MD follow up with echo: H is updated medication list for this problem includes: Aspirin 81 Mg Tabs (Aspirin) ..... One tab. daily Losartan Potassium 50 Mg Tabs (Losartan potassium) ..... 1 tab po daily Hydrochlorothiazide 12.5 Mg Caps (Hydrochlorothiazide) ..... One tab. daily Furosemide 40 Mg Tabs (Furosemide) ..... 1 tab by mouth daily BP today: 130/70 P rior BP: 148/76 (05/15/2010) Labs Reviewed: C reat: 0.88 (01/25/2009) Vianey Mendoza MD : H is updated medication list for this problem includes: Aspirin 81 Mg Tabs (Aspirin) ..... One tab. daily Vianey Mendoza MD : T he following medications were removed from the medication list: Cozaar 50 Mg Tabs (Losartan potassium) ..... One tab. daily (replaces your avalide) Hydrochlorothiazide 12.5 Mg Caps (Hydrochlorothiazide) ..... One tab. daily His updated medication list for this problem includes: Aspirin 81 Mg Tabs (Aspirin) ..... One tab. daily BP today: 148/76 P rior BP: 130/75 (05/02/2009) Labs Reviewed: C reat: 0.88 (01/25/2009) Vianey Mendoza MD 3 month follow-up: H is updated medication list for this problem includes: Aspirin 81 Mg Tabs (Aspirin) ..... One tab. daily Vianey Mendoza MD 3 month follow-up: H is updated medication list for this problem includes: Avalide 150-12.5 Mg Tabs (Irbesartan-hydrochlorothiazide) ..... One tab. daily Aspirin 81 Mg Tabs (Aspirin) ..... One tab. daily BP today: 130/75 P rior BP: 143/91 (02/07/2009) Labs Reviewed: C reat: 0.88 (01/25/2009) Vianey Mendoza MD FU Vianey Mendoza MD FU Vianey Mendoza MD FU: T he following medications were removed from the medication list: Ranexa 1000 Mg Tb12 (Ranolazine) ..... One tab. twice daily for chronic angina His updated medication list for this problem includes: Aspirin 81 Mg Tabs (Aspirin) ..... One tab. daily Vianey Mendoza MD FU: T he following medications were removed from the medication list: Hydrochlorothiazide 12.5 Mg Caps (Hydrochlorothiazide) ..... One tab. daily His updated medication list for this problem includes: Aspirin 81 Mg Tabs (Aspirin) ..... One tab. daily Avalide 150-12.5 Mg Tabs (Irbesartan-hydrochlorothiazide) ..... One tab. daily Vianey Mendoza MD 6 MONTH F/U: H is updated medication list for this problem includes: Aspirin 81 Mg Tabs (Aspirin) ..... One tab. daily Ranexa 1000 Mg Tb12 (Ranolazine) ..... One tab. twice daily for chronic angina Orders: C OMPREHENSIVE METABOLIC PANEL W/EGFR (05824) T SH, 3RD GENERATION (899) Vianey Mendoza MD 6 MONTH F/U: O rders: B TYPE NATRIURETIC PEPTIDE (BNP) (77508) Vianey Mendoza MD 6 MONTH F/U Vianey Mendoza MD 6 MONTH F/U: H is updated medication list for this problem includes: Aspirin 81 Mg Tabs (Aspirin) ..... One tab. daily Avalide 150-12.5 Mg Tabs (Irbesartan-hydrochlorothiazide) ..... One tab. daily Orders: C BC (INCLUDES DIFF/PLT) (2099) Prior BP: 122/68 (09/20/2008) Vianey Mendoza MD FU: room 3 Vianey Mendoza MD FU: room 3: H is updated medication list for this problem includes: Aspirin 81 Mg Tabs (Aspirin) ..... One tab. daily Vianey Mendoza MD FU: room 3: H is updated medication list for this problem includes: Aspirin 81 Mg Tabs (Aspirin) ..... One tab. daily Avalide 150-12.5 Mg Tabs (Irbesartan-hydrochlorothiazide) ..... One tab. daily BP today: 122/68 P rior BP: 158/88 (07/12/2008) Vianey Mendoza MD fu: T he following medications were removed from the medication list: Lasix 20 Mg Tabs (Furosemide) ..... 1 tablet daily His updated medication list for this problem includes: Aspirin 81 Mg Tabs (Aspirin) ..... One tab. daily Avalide 150-12.5 Mg Tabs (Irbesartan-hydrochlorothiazide) ..... One tab. daily BP today: 158/88 P rior BP: 152/80 (06/05/2008) Vianey Mendoza MD fu Vianey Mendoza MD fu: H is updated medication list for this problem includes: Aspirin 81 Mg Tabs (Aspirin) ..... One tab. daily Vianey Mendoza MD Date Name TSH, 3RD GENERATION CBC (INCLUDES DIFF/P LT) COMPREHENSIVE METABO LIC PANEL W/EGFR B TYPE NATRIURETIC P EPTIDE (BNP) Holter Monitor 24 Hr Stress Test - Nuclea r Complete Echo HISTORY OF PROCEDURES Procedure Date Procedure Name Provider Procedure Notes S tatus EKG Vianey Mendoza MD completed SNOMED-CT: 98117166 Physical Exam, Performed: Pulse Exam of Foot Vianey Mendoza MD completed EKG Vianey Mendoza MD completed SNOMED-CT: 684992061 [id number] Current Medications Documented Vianey Mendoza MD completed EKG Vianey Mendoza MD completed SNOMED-CT: 014089275 [id number] Current Medications Documented Vianey Mendoza MD completed EKG Vianey Mendoza MD completed EKG Vianey Mendoza MD completed EKG Vianey Mendoza MD completed EKG Vianey Mendoza MD completed
--- NOTE | 2024-08-20 02:35 | ED.EXTPRO ---
HPI - Extremity Problem General Chief complaint: Extremity Problem,Nontraumatic Stated complaint: bruise on leg, cant walk Time Seen by Provider: 08/20/24 02:33 Source: patient and family Limitations: no limitations and other (hard of hearing but with hearing aid in place) History of Present Illness HPI Narrative: Patient presents with right leg pain and bruising after a fall on 08/14. He does not use an assist device at baseline (no walker/cane). He tripped a few days ago and while falling his right hip caught on something. Did not present to the ED. The next day he noticed the bruise which has become more painful and leg swollen. On coumadin 4mg daily except for 3mg/day on //. Takes this for history of afib. No other mucosal bleeding. Lives with spouse. No history of DVT or PE but he is concerned for a blood clot. Last dose of warfarin was taken 5pm Tuesday. Has been using Tylenol for pain. Related Data Home Medications ?Medication ?Instructions ?Recorded ?Confirmed ?Last Taken ?Type brimonidine 0.2 %-timolol 0.5 % 1 drp ophthalmic (eye) BID 04/23/19 03/19/24 08/08/23 08:00 History eye drops (Combigan) multivitamin 1 cap PO DAILY 04/23/19 03/19/24 08/08/23 08:00 History acetaminophen 650 mg tablet 650 mg PO Q6H PRN fever or pain 01/20/21 03/19/24 Unknown History albuterol sulfate 90 mcg/actuation 2 puff inhalation Q4H PRN 01/20/21 03/19/24 Unknown History aerosol inhaler (ProAir HFA) Shortness Of Breath glucosamine [id number] 1 tablet PO QAM 02/14/23 03/19/24 08/08/23 08:00 History santa 1,500 mg-400 unit-100 mg tablet (Glucosamine Daily Complex) Vitamin C With Chuyita Hips 1,000 mg PO DAILY 08/09/23 03/19/24 08/08/23 08:00 History metoprolol succinate 100 mg 25 mg PO BID 08/09/23 03/19/24 08/08/23 08:00 History tablet,extended release 24 hr (Toprol XL) Allergies Allergy/AdvReac Type Severity Reaction Status Date / Time theophylline Allergy Unknown Palpitation Verified 08/19/24 23:06 s lidocaine AdvReac Intermediate Rash Verified 08/19/24 23:06 tramadol AdvReac Hallucinati Verified 08/19/24 23:06 ng [facility]LY [facility] Past Medical History Medical History Uses hearing aid Hard of hearing Dermatitis Bleeding ulcer BMI 27.0-27.9,adult BMI 26.0-26.9,adult Fracture, rib Encounter for screening for malignant neoplasm of prostate Duodenal ulcer Bleeding duodenal ulcer Stomach ulcer GI bleed Hematemesis Emphysema lung Bladder spasms Atrial flutter Sundowning Compression deformity of vertebra Instability of right hip joint Multiple renal calculi Encounter for screening colonoscopy Hypothyroidism MATT (obstructive sleep apnea) Burst fracture of lumbar vertebra Abnormal EKG Tachycardia Shingles Depression Arthritis BPH (benign prostatic hyperplasia) History of kidney stones Sleep apnea Hypertension Surgical History Surgical History Hx of lithotripsy Hx of hernia repair History of bladder surgery x2 History of colonoscopy Family History Family History Mother Hypertension Family history of malignant neoplasm Family history of heart disease in male family member before age 55 Stomach cancer Father Malignant neoplasm of prostate Family history of chronic obstructive pulmonary disease COPD (chronic obstructive pulmonary disease) Sibling Family history of chronic obstructive pulmonary disease AAA (abdominal aortic aneurysm) Social History Social History Social History: THE PATIENT LIVES WITH HIS . The patient quit smoking many years ago. He is retired from the [employer]. He has 2 children. The is the durable power commercial attorney for healthcare. Does not ambulate with assist device. Code status DNR Smoking packs per day: 1 Smoking cigarettes per day: 20.0 Years smoked: 60 Smoking pack-years: 60.00 Smoking status: Former smoker Tobacco type: cigarettes Second hand tobacco smoke exposure: Yes Smoking end date: 10/28/00 Alcohol intake: never Substance use: never Substance use type: does not use Do You Feel Safe in your Home?: Yes Lack of Transportation: No Lack of Food: Never True Current Housing: I Have Housing Concerned About Future Housing: No Difficulty Paying Gas/Electric Bills: No Difficulty Paying for Meds: No Currently Unemployed: No Education: High School Diploma/GED Difficulty w/ Childcare or Family Care: No Living arrangements: with family Occupation/Education: retired 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 HEAD: Normocephalic, atraumatic. EYES: Non injected, non icteric ENT: Nares clear, no rhinorrhea or epistaxis. Hearing aid in left ear - can hear when spoken to slowly and at close range. NECK: Supple. CHEST: Speaking in full sentences. No respiratory distress. HEART: Regular rate and rhythm. . ABDOMEN: Soft, nondistended. EXTREMITIES: Able to move leg at the hip and knee. Large area of ecchymosis overlying proximal lateral aspect of right thigh. Mildly tender to palpation and with a firmness/induration. Thigh compartments are vazquez on the right than the left, compartments otherwise soft and compressible. warm and well perfused. SKIN: Warm, dry. Large area of ecchymosis in varying stages of healing. NEURO: No focal deficits. Alert and oriented x3. PSYCH: Normal mood and affect. Course Vital Signs Vital signs: Vital Signs Temperature 97 F L 08/19/24 23:06 Pulse Rate 66 08/19/24 23:06 Respiratory Rate 17 08/19/24 23:06 Blood Pressure 157/70 H 08/19/24 23:06 Pulse Oximetry 97 08/19/24 23:06 Oxygen Delivery Room Air 08/19/24 23:06 Temperature 98.1 F 08/20/24 06:41 Pulse Rate 76 08/20/24 06:41 Respiratory Rate 16 08/20/24 06:41 Blood Pressure 150/79 H 08/20/24 06:41 Pulse Oximetry 94 08/20/24 06:41 Oxygen Delivery Room Air 08/19/24 23:06 MDM - Extremity (Nontraumatic) MDM Narrative Medical decision making narrative: Patient presents with right leg pain and swelling/ecchymosis after falling 08/14/24. On coumadin for afib. Concerned for a blood clot. In the emergency department he is afebrile with vital signs notable for hypertension. Mild leukocytosis. Normocytic anemia, stable from previous. Dimer normal. CPK normal. Xray imaging negative on my independent interpretation. Given concern for hematoma/seroma, etc., will proceed with CT imaging. INR 2.4. There is a large hematoma on CT. Discussed conservative management initially and following up for consideration of drainage if not improving though discussed that body will attempt to reabsorb blood product in the interim. Advised to avoid NSAIDs. prescribed acetaminophen. Discussed Rest, ice, compression and elevation. Provided referral to general surgeon; discussed that patient's PCP would not be able to drain this in their office. Differential Diagnosis Differential diagnosis: Likely deep vein thrombosis of lower extremity and other (fracture; supratherapeutic INR; seratoma/hematoma) Lab Data Attestation: I reviewed the patient's lab results. 08/20/24 03:37 08/20/24 03:37 Labs: Lab Results 08/20/24 08/20/24 08/20/24 Range/Units 03:37 03:37 03:37 WBC 10.8 H (4.5-10.0) K/mm3 RBC 4.09 L (4.6-6.20) M/mm3 Hgb 12.0 L (14.0-18.0) g/dL Hct 37.7 L (42.0-52.0) % MCV 92.2 (80-100) fl MCH 29.3 (26-34) pg MCHC 31.8 L (32-36) g/dl RDW 13.9 (11.5-14.5) % Plt Count 233 (150-375) k/mm3 MPV 9.5 (7.4-10.4) fl Immature Gran % (Auto) 0.4 (0-0.5) % Neut % (Auto) 74.6 H (45.5-73.1) % Lymph % (Auto) 11.8 L (18.3-44.2) % [place] % (Auto) 11.0 H (2.6-8.5) % Eos % (Auto) 1.6 (0-4.4) % Baso % (Auto) 0.6 (0.2-1.2) % Lymph # (Auto) 1.27 (0.9-3.2) K/mm3 [place] # (Auto) 1.2 H (0.1-0.6) K/mm3 Eos # (Auto) 0.2 (0-0.3) K/mm3 Baso # (Auto) 0.1 (0.0-0.1) K/mm3 Abs Immat Gran (auto) 0.04 H (0.00-0.031) K/mm3 Absolute Neuts (auto) 8.0 H (1.3-6.7) K/mm3 Absolute Nucleated RBC 0.000 (0.0-0.012) K/mm3 Nucleated RBC % 0.0 (0.0-0.2) % PT 26.0 H (11.1-14.7) Seconds INR 2.4 APTT 35.9 (22.3-36.8) Seconds D-Dimer 0.36 (<0.48) ug/mL Sodium Cancelled 139 Potassium Cancelled 4.4 Chloride Cancelled Carbon Dioxide Anion Gap BUN Creatinine Estim Creat Clear Calc Estimated GFR Glucose Calcium Magnesium (1.6-2.3) mg/dL Total Creatine Kinase (55-170) U/L 08/20/24 08/20/24 08/20/24 Range/Units 03:37 03:37 03:37 WBC (4.5-10.0) K/mm3 RBC (4.6-6.20) M/mm3 Hgb (14.0-18.0) g/dL Hct (42.0-52.0) % MCV (80-100) fl MCH (26-34) pg MCHC (32-36) g/dl RDW (11.5-14.5) % Plt Count (150-375) k/mm3 MPV (7.4-10.4) fl Immature Gran % (Auto) (0-0.5) % Neut % (Auto) (45.5-73.1) % Lymph % (Auto) (18.3-44.2) % [place] % (Auto) (2.6-8.5) % Eos % (Auto) (0-4.4) % Baso % (Auto) (0.2-1.2) % Lymph # (Auto) (0.9-3.2) K/mm3 [place] # (Auto) (0.1-0.6) K/mm3 Eos # (Auto) (0-0.3) K/mm3 Baso # (Auto) (0.0-0.1) K/mm3 Abs Immat Gran (auto) (0.00-0.031) K/mm3 Absolute Neuts (auto) (1.3-6.7) K/mm3 Absolute Nucleated RBC (0.0-0.012) K/mm3 Nucleated RBC % (0.0-0.2) % PT (11.1-14.7) Seconds INR APTT (22.3-36.8) Seconds D-Dimer (<0.48) ug/mL Sodium Potassium Chloride 102 Carbon Dioxide Cancelled 30 Anion Gap Cancelled 7 BUN Cancelled Creatinine Estim Creat Clear Calc Estimated GFR Glucose Calcium Magnesium (1.6-2.3) mg/dL Total Creatine Kinase (55-170) U/L 08/20/24 08/20/24 08/20/24 Range/Units 03:37 03:37 03:37 WBC (4.5-10.0) K/mm3 RBC (4.6-6.20) M/mm3 Hgb (14.0-18.0) g/dL Hct (42.0-52.0) % MCV (80-100) fl MCH (26-34) pg MCHC (32-36) g/dl RDW (11.5-14.5) % Plt Count (150-375) k/mm3 MPV (7.4-10.4) fl Immature Gran % (Auto) (0-0.5) % Neut % (Auto) (45.5-73.1) % Lymph % (Auto) (18.3-44.2) % Hope[place] % (Auto) (2.6-8.5) % Eos % (Auto) (0-4.4) % Baso % (Auto) (0.2-1.2) % Lymph # (Auto) (0.9-3.2) K/mm3 [place] # (Auto) (0.1-0.6) K/mm3 Eos # (Auto) (0-0.3) K/mm3 Baso # (Auto) (0.0-0.1) K/mm3 Abs Immat Gran (auto) (0.00-0.031) K/mm3 Absolute Neuts (auto) (1.3-6.7) K/mm3 Absolute Nucleated RBC (0.0-0.012) K/mm3 Nucleated RBC % (0.0-0.2) % PT (11.1-14.7) Seconds INR APTT (22.3-36.8) Seconds D-Dimer (<0.48) ug/mL Sodium Potassium Chloride Carbon Dioxide Anion Gap BUN 18 Creatinine Cancelled 0.86 Estim Creat Clear Calc Cancelled 51 Estimated GFR Cancelled Glucose Calcium Magnesium (1.6-2.3) mg/dL Total Creatine Kinase (55-170) U/L 08/20/24 08/20/24 08/20/24 Range/Units 03:37 03:37 03:37 WBC (4.5-10.0) K/mm3 RBC (4.6-6.20) M/mm3 Hgb (14.0-18.0) g/dL Hct (42.0-52.0) % MCV (80-100) fl MCH (26-34) pg MCHC (32-36) g/dl RDW (11.5-14.5) % Plt Count (150-375) k/mm3 MPV (7.4-10.4) fl Immature Gran % (Auto) (0-0.5) % Neut % (Auto) (45.5-73.1) % Lymph % (Auto) (18.3-44.2) % Hope[place] % (Auto) (2.6-8.5) % Eos % (Auto) (0-4.4) % Baso % (Auto) (0.2-1.2) % Lymph # (Auto) (0.9-3.2) K/mm3 [place] # (Auto) (0.1-0.6) K/mm3 Eos # (Auto) (0-0.3) K/mm3 Baso # (Auto) (0.0-0.1) K/mm3 Abs Immat Gran (auto) (0.00-0.031) K/mm3 Absolute Neuts (auto) (1.3-6.7) K/mm3 Absolute Nucleated RBC (0.0-0.012) K/mm3 Nucleated RBC % (0.0-0.2) % PT (11.1-14.7) Seconds INR APTT (22.3-36.8) Seconds D-Dimer (<0.48) ug/mL Sodium Potassium Chloride Carbon Dioxide Anion Gap BUN Creatinine Estim Creat Clear Calc Estimated GFR > 60 Glucose Cancelled 132 H Calcium Cancelled 9.2 Magnesium 1.9 (1.6-2.3) mg/dL Total Creatine Kinase 61 (55-170) U/L Imaging Data Attestation: I personally reviewed and interpreted this imaging study as follows: My impression: X ray imaging negative for fracture or dislocation on my independent interpretation Radiologist's impression: XR Pelvis Stat Rad: No displaced fracture or dislocation identified. Incidental findings: Degenerative changes of the visualized lumbar spine. Mild degenerative changes of the hips. Present phleboliths in the pelvis XR Right Hip Stat Rad: No displaced fracture or dislocation identified. Incidental findings: Mild degenerative changes of the right hip. XR Right Knee Stat Rad: No displaced fracture or dislocation identified. Incidental findings: Mild degenerative changes in the patellofemoral compartment. CT Extremity Right Lower Stat Rad: No acute fracture or dislocation identified. Hematoma in the right vastus intermedius, measuring 6 x 3.7 x 12.4. Probable bruising in the overlying subcutaneous tissues. Discharge Plan Discharge Clinical Impression: Traumatic ecchymosis of right thigh, Fall, Leukocytosis, Normocytic anemia, Osteoarthritis of right knee, Intramuscular hematoma Patient Disposition: Home, Self-Care Condition: Stable Instructions: Antibiotic Form, Osteoarthritis (DC), Fall Prevention for Older Adults (ED), Leukocytosis (ED), Anemia (ED), Hematoma (ED), Ecchymosis (ED) Additional Instructions: INR was 2.4. Rest:?Avoid activities that aggravate the pain or bleeding.? Ice:?Apply ice packs to the affected area for 20 minutes at a time, several times a day.? Compression:?Wrap the area with an elastic bandage to reduce swelling.? Elevation:?Keep the injured area elevated above the level of the heart.? Pain relievers:?Uhqm-[id number] pain relievers, acetaminophen, can help manage discomfort. Follow-up with primary care physician or general surgeon (listed below) if not getting better in 3-5 days. A surgeon can consider draining the area. Return to the emergency department with any new/worsening/unmanaged symptoms. ? Patient Language: Icelandic Prescriptions: New acetaminophen 500 mg capsule 1,000 mg PO Q6H PRN (Reason: pain) Qty: 30 0RF No Action [id number] serr [Glucosamine Daily Complex] 1,500-400-100 mg-unit-mg tablet 1 tablet PO QAM Rx Instructions: give after food/meal Vitamin C With Chuyita Hips 1,000 mg PO DAILY metoprolol succinate [Toprol XL] 100 mg tablet extended release 24 hr 25 mg PO BID Rx Instructions: managed by Serg brimonidine-timolol [Combigan] 0.2-0.5 % drops 1 drp ophthalmic (eye) BID multivitamin Capsule 1 cap PO DAILY fexofenadine 180 mg tablet 180 mg PO DAILY Qty: 90 2RF warfarin 2 mg tablet See Rx Instructions .ROUTE .COMPLEX Qty: 90 5RF Dose Instruction: DOSING WILL CHANGE DEPENDING ON YOUR INRS. DR YANDEL DOLL WILL BE GIVING YOU DIRECTIONS ON HOW MUCH TO TAKE. Rx Instructions: tue 3mg sat sun 2 mg citalopram 20 mg tablet 20 mg PO DAILY Qty: 90 2RF Rx Instructions: TAKE 1 TABLET BY MOUTH DAILY atorvastatin 20 mg tablet 20 mg PO HS Qty: 90 2RF Rx Instructions: TAKE 1 TABLET BY MOUTH AT BEDTIME furosemide 40 mg tablet See Rx Instructions .ROUTE .COMPLEX Qty: 90 3RF Dose Instruction: TAKE 1 TABLET EVERY MORNING Rx Instructions: TAKE 1 TABLET EVERY MORNING acetaminophen 650 mg Tablet 650 mg PO Q6H PRN (Reason: fever or pain) albuterol sulfate [ProAir HFA] 90 mcg/actuation HFA aerosol inhaler 2 puff INHALATION Q4H PRN (Reason: Shortness Of Breath) melatonin 3 mg Tablet 3 mg PO HS PRN (Reason: Insomnia) Qty: 30 0RF digoxin 125 mcg (0.125 mg) Tablet 125 mcg PO QAM Qty: 30 0RF Follow-up/Referrals: Jena Huitron MD [Physician] - (General surgeon) Yandel Doll MD [Primary Care Provider] - Time of Disposition: 05:49
--- OUTSIDE RECORDS SUMMARY | 2024-08-20 02:42 | XMS_ITS | Clinical Summary ---
Author Organization [facility] Address [address] [place] [address] Care Team Providers Care Wash Driller Name Role Phone Lokesh Doll Primary Care Provider [phone] Social History Tobacco Use Types Packs/Day Years Used Date Smoking Tobacco: Never Assessed Sex and Gender Information Value Date Recorded Sex Assigned at Not on file Legal Sex Male 3:54 PM EDT Gender Identity Not on file Sexual Orientation Not on file Plan of Treatment Not on file Care Teams Wash Driller Relationship Specialty Start Date End Date Lokesh Doll [address] [place] [id number] PCP - General 01/16/21
--- OUTSIDE RECORDS SUMMARY | 2024-08-20 02:42 | XMS_ITS | Clinical Summary ---
Author Organization [facility] Address [address] [place] [address] Care Team Providers Care Spinning Frame Changer Name Role Phone Lokesh Doll MD Primary Care Provider [phone] Source Comments [facility],non-owned Affiliates and Associated Physician Practices is amultiple site organization consisting of ambulatory clinics and hospital sitesin [place], [place], [place] and [place]. This disclosure is being madepursuant to the Care Everywhere program and may not contain all information available regarding this patient. Last updated 18.[facility] Allergies No known active allergies Medications * [...] ionNo Intubation, No Invasive Ventilation Care Teams Spinning Frame Changer Relationship Specialty Start Date End Date Lokesh Doll MD [address] [place] [address] PCP - General 01/11/21
--- OUTSIDE RECORDS SUMMARY | 2024-08-20 02:42 | XMS_ITS | Clinical Summary ---
Author Organization [facility] [address] Address [address] [place] [address] Care Team Providers Care Barrel Polisher Inside Name Role Phone Lokesh Doll MD Primary Care Provider [phone] Allergies Active Allergy Reactions Criticality Noted Date [...] [facility] Cardiology [address] [place] [address] Charly Lovell MD Med Refill [...] on file Legal Sex Male 10:15 AM LATIN AMERICAN STUDIES DIRECTOR Gender Identity Male 08/27/2019 10:41 AM CDT Sexual Orientation Straight 08/27/2019 10 :41 AM CDT Obstetrics History Last Filed Vital Signs Vital Sign Reading Time Taken Comments Blood Pressure 146/68 04/03/2024 11:01 AM LATIN AMERICAN STUDIES DIRECTOR Pulse 64 04/03/2024 11:01 AM LATIN AMERICAN STUDIES DIRECTOR Temperature 36.8 C (98.2 F) 12/23/2020 2:53 PM CDT Respiratory Rate 16 04/16/2021 4:34 PM LATIN AMERICAN STUDIES DIRECTOR Oxygen Saturation 96% 04/03/2024 11:01 AM LATIN AMERICAN STUDIES DIRECTOR Inhaled Oxygen Concentration - - Weight 84.4 kg (186 lb) 04/03/2024 11:01 AM LATIN AMERICAN STUDIES DIRECTOR Height 170.2 cm (5' 7 ) 04/03/2024 11:01 AM LATIN AMERICAN STUDIES DIRECTOR Body Mass Index 29.13 04/03/2024 11:01 AM LATIN AMERICAN STUDIES DIRECTOR Plan of Treatment Health Maintenance Due Date Last Done Comments Depression Screening 1938 Fall Risk Assessment 1938 Hepatitis B Screening 1956 Zoster Vaccine (1 of 2) 1988 Well Visit 65+ 12/07/2003 Influenza Vaccine (#1) 2024 9, 03/08/2018, 04/04/2016, Additional history exists DTaP/Tdap/Td Vaccine (2 - Td or Tdap) 09/19/2028 09/19/2018 Pneumococcal vaccine 65+ Completed 03/29/2019, 02/27 [facility] [place] [address] [place] [address] [facility] Care Teams Barrel Polisher Inside Relationship Specialty Start Date End Date Lokesh Doll MD PCP - General Family Medicine 12/27/18
--- OUTSIDE RECORDS SUMMARY | 2024-08-20 02:42 | XMS_ITS | Encounter Summary ---
Author Organization [facility] Address [address] [place] [address] Care Team Providers Care Armored Cable Machine Operator Name Role Phone Lokehs Doll MD Primary Care Provider [phone] Encounter Details Date Type Department Care Team (Late st Contact Info) Description 04/13/2021 Telephone [facility] [address] [place] [id number] Fanny Ellis, RT Social History Tobacco Use Types Packs/Day Years Used Date Smoking Tobacco: Former Cigarettes Q uit: 2001 Smokeless Tobacco: Former Alcohol Use Standard Drinks/Week Comments Not Currently 0 (1 standard drink = 0.6 oz pur e alcohol) Sex and Gender Information Value Date Recorded Sex Assigned at Not on file Legal Sex Male 10:15 AM CUE WORKER Gender Identity Male 08/27/2019 10:41 AM CDT Sexual Orientation Straight 08/27/2019 10 :41 AM CDT documented as of this encounter Plan of Treatment Not on file documented as of this encounter Visit Diagnoses Not on filedocumented in this encounter Care Teams Armored Cable Machine Operator Relationship Specialty Start Date End Date Lokesh Doll MD PCP - General Family Medicine 12/27/18 documented as of this encounter
--- OUTSIDE RECORDS SUMMARY | 2024-08-20 02:42 | XMS_ITS | Referral Summary ---
Author Organization [facility] [address] [facility] [address] [place] [address] Care Team Providers Care Parts Casting Machine Operator Name Role Phone Lokesh Doll MD Primary Care Provider Encounters Date Type Department Care Team Description 07/02/2024 Telephone [facility] Medical [facility] Cardiology [address] [place] [address] Charly Lovell MD Med Refill [...] on file Legal Sex Male 10:15 AM ELECTRONIC TESTER Gender Identity Male 08/27/2019 10:41 AM CDT Sexual Orientation Straight 08/27/2019 10 :41 AM CDT Last Filed Vital Signs Vital Sign Reading Time Taken Comments Blood Pressure 146/68 04/03/2024 11:01 AM ELECTRONIC TESTER Pulse 64 04/03/2024 11:01 AM ELECTRONIC TESTER Temperature 36.8 C (98.2 F) 12/23/2020 2:53 PM CDT Respiratory Rate 16 04/16/2021 4:34 PM ELECTRONIC TESTER Oxygen Saturation 96% 04/03/2024 11:01 AM ELECTRONIC TESTER Inhaled Oxygen Concentration - - Weight 84.4 kg (186 lb) 04/03/2024 11:01 AM ELECTRONIC TESTER Height 170.2 cm (5' 7 ) 04/03/2024 11:01 AM ELECTRONIC TESTER Body Mass Index 29.13 04/03/2024 11:01 AM ELECTRONIC TESTER Plan of Treatment Not on file Insurance MEDICARE [employer] [facility] [place] [address] [facility] Care Teams Parts Casting Machine Operator Relationship Specialty Start Date End Date Lokesh Doll MD PCP - General Family Medicine 12/27/18
--- OUTSIDE RECORDS SUMMARY | 2024-08-20 02:42 | XMS_ITS ---
Author Organization [facility] Address [address] [place] [address] Care Team Providers Care Seat Joiner Name Role Phone Lokesh Doll MD Primary Care Provider [phone] Active Problems Problem Noted Date Diagnosed Date [...] treatments are documented for this patient in [facility]. Treatments may have been administered in another system. Lifetime Dose Tracking * Chemical Lifetime Dose Automatic Entry Manual Entr y Dose Length Product 2,623.9 mGy-cm 2,623.9 mGy-cm 0 mG y-cm
--- OUTSIDE RECORDS SUMMARY | 2024-08-20 02:42 | XMS_ITS | Clinical Summary ---
Author Organization [facility] Address [facility] [place] [address] Care Team Providers Care Heavy Repairer Name Role Phone Lokesh Doll MD Primary Care Provider [phone] Active Problems Problem Noted Date Diagnosed Date Sensorineural hearing loss, bilateral 12/26/2020 Social History Tobacco Use Types Packs/Day Years Used Date Smoking Tobacco: Never Assessed Sex and Gender Information Value Date Recorded Sex Assigned at Not on file Legal Sex Male 10:22 PM FORENSIC EXAMINER Gender Identity Not on file Sexual Orientation [...] patient's age to complete this topic Insurance [facility] MEDICARE Care Teams Heavy Repairer Relationship Specialty Start Date End Date Lokesh Doll MD [address] [place] [address] PCP - General FAMILY PRACTICE 12/23/20
--- OUTSIDE RECORDS SUMMARY | 2024-08-20 02:42 | XMS_ITS | CONTINUITY OF CARE DOCUMENT ---
Author Name jose elsaerika Address Unknown Organization [facility] Address [address] [place] [address] Phone [phone] Care Team Providers Care Senior Devops Engineer Name Role Phone Reji WALL, Vianey Unavailable [phone] DANIEL WALL, YANDEL F Unavailable DANIEL WALL, YANDEL F Unavailable [phone] PROBLEMS Condition Status Date Provider Notes CHF [...] In-person encounter Office Visit Vianey Mendoza MD [place] [facility] - In-person encounter Office Visit Vianey Mendoza MD [place] [facility] - In-person encounter Office Visit Vianey Mendoza MD [place] [facility] - In-person encounter Office Visit Vianey Mendoza MD [place] [facility] - In-person encounter Office Visit Vianey Mendoza MD [facility] Office - In-person encounter Office Visit Vianey Mendoza MD [facility] Office - In-person encounter Office Visit Vianey Mendoza MD [place] [facility] - In-person encounter Office Visit Vianey Mendoza MD [place] [facility] - In-person encounter Office Visit Vianye Mendoza MD [place] [facility] - In-person encounter Office Visit Vianey Mendoza MD [place] [facility] - In-person encounter Office Visit Vianey Mendoza MD [place] [facility] - In-person encounter Office Visit Vianey Mendoza MD [place] [facility] CHFPALPITATIONS NL ECHO AND HOLTER HYPERTENSION, ESSENTIAL NL STRESS ,ECHO IN 06/07 - In-person encounter Office Visit Vianey Mendoza MD [facility] Office PALPITATIONS NL ECHO AND HOLTER EDEMASLEEP APNEA-ON CPAPBLADDER CANCER VITAL SIGNS Date Observation Value Provider Body Mass Index (Ratio) 31.51 kg/m2 Bony Mendoza MD blood pressure, cuff size regular Ani Ramseynaina PradoArndt blood pressure, diastolic 64 mm[Hg] Ani Quiñones Arndt blood pressure, systolic 142 mm[Hg] Bteh Arndt oxygen saturation, oximetry 97 % Zeny Arndt respiratory rate E&M 18 /min Arabella goodwin Arndt pulse rate 64 /min Zeny Ramos katieomar weight E&M 201.2 [lb_av] Zeny beyeromar height E&M 67 [in_i] Zeny Ramos [facility] Body Mass Index (Ratio) 31.95 kg/m2 Bony [...] Daya Hamilton respiratory rate E&M 16 /min Daya Hamilton weight E&M 183 [lb_av] Daya Hamilton [...] Normal Absolute Neutrophil count 3915 cells/mcL [employer] [id number] Normal platelet count 299 THOUSAND/UL [employer] 140-400 [...] TABLET active 1 tab po daily Amadeo Mendez FEXOFENADINE HCL 180 MG ORAL TABLET active [...] ORAL TABLET completed ONE TAB. DAILY - Vianey Mendoza MD AVALIDE 150-12.5 MG ORAL TABLET [...] J ob Status: Retired Smoking History: Yusef chavez is a former smoker. Vianey Mendoza MD [...] exercise, f requency, days per week no Zeyn Arndt alcohol use, average drinks per day [...] use, averag e drinks per day yes [facility] alcohol use, average drinks per day none [facility] number of years as a smoker 10 years or m ore [facility] smoking status Quit [facility] MENTAL STATUS Date Observation Value Provider assessment [...] Mood and affect are normal. Mira Walter [facility] PHARMAC[facility] DIRECTOR HISTORY Family Member Condition Mother Family History of Co ronary Artery Disease: INSURANCE PROVIDERS Payer name Policy type / Coverage type [place] red constitution party ID [facility] reBounces insurance [employer] [id number] [facility] Medicare [id number] ADVANCE DIRECTIVES Name Date DISCUSSED - NO [...] tab by mouth daily Orders: E KG (CPT-63698) BP today: 144/80 P rior BP: 130/80 (06/08/2012) Labs Reviewed: C reat: 0.88 (01/25/2009) Vianey Mendoza MD follow up: H is updated medication list for this problem includes: Aspirin 81 Mg Tabs (Aspirin) ..... One tab. daily Orders: E KG (CPT-[id number]) Vianey Mendoza MD follow up Vianey Mendoza [...] angina Orders: C OMPREHENSIVE METABOLIC PANEL W/EGFR (01164) T SH, 3RD GENERATION (899) Vianey Mendoza MD 6 MONTH F/U: O rders: B TYPE NATRIURETIC PEPTIDE (BNP) (71547) Vianey Mendoza MD 6 MONTH F/U Vianey Mendoza MD 6 MONTH F/U: H is updated medication list for this problem includes: Aspirin 81 Mg Tabs (Aspirin) ..... One tab. daily Avalide 150-12.5 Mg Tabs (Irbesartan-hydrochlorothiazide) ..... One tab. daily Orders: C BC (INCLUDES DIFF/PLT) (1799) Prior BP: 122/68 (09/20/2008) Vianey Mendoza MD [...] tatus EKG Vianey Mendoza MD completed SNOMED-CT: [id number] Physical Exam, Performed: Pulse Exam of Foot Vianey Mendoza MD completed EKG Vianey Mendoza MD completed SNOMED-CT: 874327139 405224 Current Medications Documented Vianey Mendoza MD completed EKG Vianey Mendoza MD completed SNOMED-CT: 171020249 940933 Current Medications Documented Vianey Mendoza MD completed EKG Vianey Mendoza MD completed EKG Vianey Mendoza MD completed EKG Vianey Mendoza MD completed EKG Vianey Mendoza MD completed
--- OUTSIDE RECORDS SUMMARY | 2024-08-20 02:42 | XMS_ITS | Encounter Summary ---
Author Organization [facility] Health Address [address] [place] [address] Care Team Providers Care Ranch Hand Name Role Phone Lokesh Doll MD Primary Care Provider [phone] Encounter Details Date Type Department Care Team (Late st Contact Info) Description 10/07/2021 Lab Requisition [facility] [address] [place] [address] Quan Moon MD [address] [place] [address] Social History Tobacco Use Types [...] AM CDT) Case Report Dermatopathology Report Case: [id number] Authorizing Provider: Quan Moon MD Collected: 10/06/2021 12:00 AM Ordering Location: [facility] Derm[facility] Lab Received: 10/07/2021 12:13 PM Pathologist: Bernarda lAves MD Specimen: Skin, left lat flank 2:23 [...] lat flank. The specimen consists of a [id number] excision, submitted in multiple pieces. Jar 0. [...] characteristic determined by the Dermatopathology Laboratory at [facility], directed by Dr. Samm Roche. These tests need not be, and therefore are not, approved by the [place] Food and Drug Administration. The tests are used for clinical purposes. Billing Codes Specimen Charges Stain Charges 46101 1 2 2:23 PM CDT DERMATOPATHOLOGY LABORATORY Embedded Images 2 2:23 PM CDT DERMATOPATHOLOGY LABORATORY Pathology/Cytolog y TISSUE SPECIMEN FROM SKIN / Unknown 10/06/2021 10/07/2021 12:13 PM CDT Quan Moon MD LAB - PATHOLOGY/CYTO LOGY ORDERABLES DERMATOPATHOLOGY LABORATORY [facility] - Department of Dermatology [address], [address] [phone] documented in this encounter Visit Diagnoses Not on filedocumented in this encounter Care Teams Ranch Hand Relationship Specialty Start Date End Date Lokesh Doll MD [address] [place] [id number] PCP - General 01/11/21 documented as of this encounter
--- OUTSIDE RECORDS SUMMARY | 2024-08-20 02:42 | XMS_ITS | Encounter Summary ---
Author Organization [facility] Healthcare Address [address] [place] [address] Care Team Providers Care Radio Electronics Officer Name Role Phone Lokesh Doll MD Primary Care Provider [phone] Encounter Details Date Type Department Care Team (Late st Contact Info) Description 03/31/2021 Telephone [facility]) [address] [place] [address] Pacheco Linder, RT Social History Tobacco Use Types Packs/Day Years Used Date Smoking Tobacco: Former Cigarettes Q uit: 2001 Smokeless Tobacco: Former Alcohol Use Standard Drinks/Week Comments Not Currently 0 (1 standard drink = 0.6 oz pur e alcohol) Sex and Gender Information Value Date Recorded Sex Assigned at Not on file Legal Sex Male 10:15 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
[2024-08-20] MEDS: HYDROcodone/acetaminophen (*CRX) 5-325 MG TABLET 1 TAB PO (03:44)
[2024-08-20 03:45] LABS: Basophils Absolute Auto 0.1 K/mm3 (0.0-0.1); Basophils Percent Auto 0.6 % (0.2-1.2); Eosinophils Absolute Auto 0.2 K/mm3 (0-0.3); Eosinophils Percent Auto 1.6 % (0-4.4); Hematocrit 37.7 % (42.0-52.0); Immature Granulocyte Absolute 0.04 K/mm3 (0.00-0.031); Immature Granulocyte Percent A 0.4 % (0-0.5); Lymphocytes Absolute Auto 1.27 K/mm3 (0.9-3.2); Lymphocytes Percent Auto 11.8 % (18.3-44.2); Mean Corpuscular HGB Conc 31.8 g/dl (32-36); Mean Corpuscular Hemoglobin 29.3 pg (26-34); Mean Corpuscular Volume 92.2 fl (80-100); Mean Platelet Volume 9.5 fl (7.4-10.4); Monocytes Absolute Auto 1.2 K/mm3 (0.1-0.6); Neutrophils Percent Auto 74.6 % (45.5-73.1); Platelet Count Result 233 k/mm3 (150-375); Red Blood Count 4.09 M/mm3 (4.6-6.20); Red Cell Distribution Width 13.9 % (11.5-14.5); White Blood Count 10.8 K/mm3 (4.5-10.0)
[2024-08-20 03:56] LABS: INR 2.4; Partial Thromboplastin Time 35.9 Seconds (22.3-36.8)
[2024-08-20 03:59] LABS: Anion Gap 7 mmol/L (4-12); Blood Urea Nitrogen 18 mg/dL (9-20); Calcium 9.2 mg/dL (8.4-10.2); Carbon Dioxide 30 mmol/L (22-30); Chloride 102 mmol/L (98-107); Creatine Kinase 61 U/L (55-170); Estimated CRCL calculation 51 ml/min; Estimated Glomerular Filt Rate > 60; Glucose 132 mg/dL (65-110); Magnesium 1.9 mg/dL (1.6-2.3); Potassium 4.4 mmol/L (3.4-5.0); Sodium 139 mmol/L (137-145)
[2024-08-20 04:05] LABS: D Dimer 0.36 ug/mL (<0.48)
[2024-08-20 06:41] VITALS: BP 150/79; PULSE 76; RESP 16; TEMP 36.7; O2SAT 94
== END 2024-08-20 07:16 | disposition home or self-care (01) ==
PROVIDERS: Emergency Provider Student in an Organized Health Care Education/Training Program; PCP Family Medicine
DX: S70.11XA Contusion of right thigh, initial encounter (principal); W18.30XA Fall on same level, unspecified, initial encounter; D64.9 Anemia, unspecified; M17.11 Unilateral primary osteoarthritis, right knee; Z79.01 Long term (current) use of anticoagulants; I48.91 Unspecified atrial fibrillation; G47.33 Obstructive sleep apnea (adult) (pediatric); I10 Essential (primary) hypertension; Z87.891 Personal history of nicotine dependence
CPT/HCPCS: 36415; 73502; 73562; 73700; 80048; 82550; 83735; 85025; 85380; 85610; 85730; 99284; A9270

== ENCOUNTER 2024-09-05 12:45 | Outpatient (CLI) | payer MEDICARE, SELFPAY ==
[2024-09-05 12:59] LABS: Basophils Percent Auto 0.6 % (0.2-1.2); Eosinophils Absolute Auto 0.1 K/mm3 (0-0.3); Eosinophils Percent Auto 1.8 % (0-4.4); Hematocrit 38.1 % (42.0-52.0); Hemoglobin 11.7 g/dL (14.0-18.0); Immature Granulocyte Absolute 0.03 K/mm3 (0.00-0.031); Immature Granulocyte Percent A 0.4 % (0-0.5); Lymphocytes Absolute Auto 1.22 K/mm3 (0.9-3.2); Mean Corpuscular HGB Conc 30.7 g/dl (32-36); Mean Corpuscular Hemoglobin 29.7 pg (26-34); Mean Corpuscular Volume 96.7 fl (80-100); Mean Platelet Volume 9.3 fl (7.4-10.4); Monocytes Absolute Auto 0.7 K/mm3 (0.1-0.6); Monocytes Percent Auto 10.9 % (2.6-8.5); Neutrophils Absolute Auto 4.6 K/mm3 (1.3-6.7); Neutrophils Percent Auto 68.3 % (45.5-73.1); Platelet Count Result 304 k/mm3 (150-375); Red Blood Count 3.94 M/mm3 (4.6-6.20); Red Cell Distribution Width 14.6 % (11.5-14.5); White Blood Count 6.8 K/mm3 (4.5-10.0)
--- OUTSIDE RECORDS SUMMARY | 2024-09-05 13:55 | XMS_ITS | Clinical Summary ---
Author Organization [facility] Address [address] [place] [address] Care Team Providers Care Drop Wire Stringer Name Role Phone Lokesh Doll Primary Care Provider [phone] Social History Tobacco Use Types Packs/Day Years Used Date Smoking Tobacco: Never Assessed Sex and Gender Information Value Date Recorded Sex Assigned at Not on file Legal Sex Male 3:54 PM EDT Gender Identity Not on file Sexual Orientation Not on file Plan of Treatment Not on file Care Teams Drop Wire Stringer Relationship Specialty Start Date End Date Lokesh Doll [address] [place] [phone] PCP - General 01/16/21
--- OUTSIDE RECORDS SUMMARY | 2024-09-05 13:55 | XMS_ITS | CONTINUITY OF CARE DOCUMENT ---
Author Name jose elsaerika Address Unknown Organization [facility] Address [address] [place] [address] Phone [phone] Care Team Providers Care Handle Turner Name Role Phone Reji WALL, Vianey Unavailable DANIEL WALL, YANDEL F Unavailable [phone] DANIEL WALL, YANDEL F Unavailable PROBLEMS Condition [...] In-person encounter Office Visit Vianey Mendoza MD [place] [facility] - In-person encounter Office Visit Vianey Mendoza MD [place] [facility] - In-person encounter Office Visit Vianey Mendoza MD [place] [facility] - In-person encounter Office Visit Vianey Mendoza MD [place] [facility] - In-person encounter Office Visit Vianey Mendoza MD [facility] Office - In-person encounter Office Visit Vianey Mendoza MD [facility] Office - In-person encounter Office Visit Vianey Mendoza MD [place] Office - In-person encounter Office Visit Vianey Mendoza MD [place] [facility] - In-person encounter Office Visit Vianey Mendoza MD [place] [facility] - In-person encounter Office Visit Vianey Mendoza MD [place] [facility] - In-person encounter Office Visit Vianey Mendoza MD [place] [facility] - In-person encounter Office Visit Vianey Mendoza MD [place] [facility] CHFPALPITATIONS NL ECHO AND HOLTER HYPERTENSION, ESSENTIAL NL STRESS ,ECHO IN 06/07 - In-person encounter Office Visit Vianey Mendoza MD [facility] Office PALPITATIONS NL ECHO AND HOLTER [...] beyeromar height E&M 67 [in_i] Zeny Ramos [facility] Body Mass Index (Ratio) 31.95 kg/m2 Bony Mendoza MD blood pressure, cuff size regular Tom rri Bren blood pressure, diastolic 78 mm[Hg] Ke rri Bren blood pressure, systolic 150 mm[Hg] Frorest Correia oxygen saturation, oximetry 96 % Nadja [...] michael Mccord pulse rate 92 /min Lily Mccodr oxygen saturation, oximetry 97 % Lily Mccord [...] Normal Absolute Neutrophil count 3915 cells/mcL [employer] [id number] Normal platelet count 299 THOUSAND/UL [employer] 140-400 [...] use, averag e drinks per day yes [facility] alcohol use, average drinks per day none [facility] number of years as a smoker 10 years or m ore [facility] smoking status Quit [facility] MENTAL STATUS Date Observation Value Provider assessment [...] and person. Mood and affect are normal. Mria Walter MECHANICAL OPERATOR HISTORY Family Member Condition Mother Family History of Co ronary Artery Disease: INSURANCE PROVIDERS Payer name Policy type / Coverage type [place] red green party ID [facility] [employer] insurance [employer] [id number] [facility] MEDIC[facility] Medicare [id number] ADVANCE DIRECTIVES Name Date DISCUSSED - NO [...] tab by mouth daily Orders: E KG (CPT-[id number]) BP today: 144/80 P rior BP: 130/80 (06/08/2012) Labs Reviewed: C reat: 0.88 (01/25/2009) Vianey Mendoza MD follow up: H is updated medication list for this problem includes: Aspirin 81 Mg Tabs (Aspirin) ..... One tab. daily Orders: E KG (CPT-07941) Vianey Mendoza MD follow up Vianey Mendoza [...] angina Orders: C OMPREHENSIVE METABOLIC PANEL W/EGFR (64391) T SH, 3RD GENERATION (899) Vianey Mendoza MD 6 MONTH F/U: O rders: B TYPE NATRIURETIC PEPTIDE (BNP) (80628) Vianey Mendoza MD 6 MONTH F/U Vianey Mendoza MD 6 MONTH F/U: H is updated medication list for this problem includes: Aspirin 81 Mg Tabs (Aspirin) ..... One tab. daily Avalide 150-12.5 Mg Tabs (Irbesartan-hydrochlorothiazide) ..... One tab. daily Orders: C BC (INCLUDES DIFF/PLT) (2799) Prior BP: 122/68 (09/20/2008) Vianey Mendoza MD [...] tatus EKG Vianey Mendoza MD completed SNOMED-CT: 66122765 Physical Exam, Performed: Pulse Exam of Foot Vianey Mendoza MD completed EKG Vianey Mendoza MD completed SNOMED-CT: 417517832 376723 Current Medications Documented Vianey Mendoza MD completed EKG Vianey Mendoza MD completed SNOMED-CT: 951563397 413117 Current Medications Documented Vianey Mendoza MD completed EKG Vianey Mendoza MD completed EKG Vianey Mendoza MD completed EKG Vianey Mendoza MD completed EKG Vianey Mendoza MD completed
--- OUTSIDE RECORDS SUMMARY | 2024-09-05 13:55 | XMS_ITS | Encounter Summary ---
Author Organization [facility] Health Address [address] [place] [address] Care Team Providers Care Metal Gauge Maker Name Role Phone Lokesh Doll MD Primary Care Provider [phone] Encounter Details Date Type Department Care Team (Late st Contact Info) Description 10/07/2021 Lab Requisition [facility] [address] [place] [address] Quan Moon MD [address] [place] [address] Social History Tobacco Use Types [...] AM CDT) Case Report Dermatopathology Report Case: [id number] Authorizing Provider: Quan Moon MD Collected: 10/06/2021 12:00 AM Ordering Location: [facility] Lab Received: 10/07/2021 12:13 PM Pathologist: [...] lat flank. The specimen consists of a [id number] excision, submitted in multiple pieces. Jar 0. [...] characteristic determined by the Dermatopathology Laboratory at [facility], directed by Dr. Samm Roche. These tests need not be, and therefore are not, approved by the [place] Food and Drug Administration. The tests are used for clinical purposes. Billing Codes Specimen Charges Stain Charges 99505 1 2 2:23 PM CDT DERMATOPATHOLOGY LABORATORY Embedded Images 2 2:23 PM CDT DERMATOPATHOLOGY LABORATORY Pathology/Cytolog y TISSUE SPECIMEN FROM SKIN / Unknown 10/06/2021 10/07/2021 12:13 PM CDT Quan Moon MD LAB - PATHOLOGY/CYTO LOGY ORDERABLES DERMATOPATHOLOGY LABORATORY [facility] - Department of Dermatology [address] [phone] documented in this encounter Visit Diagnoses Not on filedocumented in this encounter Care Teams Metal Gauge Maker Relationship Specialty Start Date End Date Lokesh Doll MD [address] [place] [phone] PCP - General 01/11/21 documented as of this encounter
--- OUTSIDE RECORDS SUMMARY | 2024-09-05 13:55 | XMS_ITS | Referral Summary ---
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 Gender Identity Male 08/27/2019 10:41 AM CDT Sexual Orientation Straight 08/27/2019 10 :41 AM CDT Last Filed Vital Signs Vital Sign Reading Time Taken Comments Blood Pressure 146/68 04/03/2024 11:01 AM SALES ASSOCIATE KEY HOLDER Pulse 64 04/03/2024 11:01 AM SALES ASSOCIATE KEY HOLDER Temperature 36.8 C (98.2 F) 12/23/2020 2:53 PM CDT Respiratory Rate 16 04/16/2021 4:34 PM SALES ASSOCIATE KEY HOLDER Oxygen Saturation 96% 04/03/2024 11:01 AM SALES ASSOCIATE KEY HOLDER Inhaled Oxygen Concentration - - Weight 84.4 kg (186 lb) 04/03/2024 11:01 AM SALES ASSOCIATE KEY HOLDER Height 170.2 cm (5' 7 ) 04/03/2024 11:01 AM SALES ASSOCIATE KEY HOLDER Body Mass Index 29.13 04/03/2024 11:01 AM SALES ASSOCIATE KEY HOLDER Plan of Treatment Not on file Insurance MEDICARE [place] [facility] [place] [address] [facility]ICARE [facility] Care Teams Labor Specialist Relationship Specialty Start Date End Date Lokesh Doll MD PCP - General Family Medicine 12/27/18
--- OUTSIDE RECORDS SUMMARY | 2024-09-05 13:55 | XMS_ITS ---
Author Organization [facility] Address [address] [place] [address] Care Team Providers Care Machine Wiper Name Role Phone Lokesh Doll MD Primary Care Provider [phone] Active Problems Problem Noted Date Diagnosed Date [...] treatments are documented for this patient in [facility]. Treatments may have been administered in another system. Lifetime Dose Tracking * Chemical Lifetime Dose Automatic Entry Manual Entr y Dose Length Product 2,623.9 mGy-cm 2,623.9 mGy-cm 0 mG y-cm
--- OUTSIDE RECORDS SUMMARY | 2024-09-05 13:55 | XMS_ITS | Encounter Summary ---
Author Organization [facility] Healthcare Address [address] [place] [address] Care Team Providers Care Baking Factory Worker Name Role Phone Lokesh Doll MD Primary Care Provider [phone] Encounter Details Date Type Department Care Team (Late st Contact Info) Description 03/31/2021 Telephone [facility] [address] [place] [address] Pache[address] Linder, RT Social History Tobacco Use Types Packs/Day Years Used Date Smoking Tobacco: Former Cigarettes Q uit: 2001 Smokeless Tobacco: Former Alcohol Use Standard Drinks/Week Comments Not Currently 0 (1 standard drink = 0.6 oz pur e alcohol) Sex and Gender Information Value Date Recorded Sex Assigned at Not on file Legal Sex Male 10:15 AM CREDIT VERIFIER Gender Identity Male 08/27/2019 10:41 AM CDT Sexual Orientation Straight 08/27/2019 10 :41 AM CDT documented as of this encounter Plan of Treatment Not on file documented as of this encounter Visit Diagnoses Not on filedocumented in this encounter Care Teams Baking Factory Worker Relationship Specialty Start Date End Date Lokesh Doll MD PCP - General Family Medicine 12/27/18 documented as of this encounter
--- OUTSIDE RECORDS SUMMARY | 2024-09-05 13:55 | XMS_ITS | Clinical Summary ---
Author Organization [facility] [address] Address [address] [place] [address] Care Team Providers Care Ingredient Specialist Name Role Phone Lokesh Doll MD Primary Care Provider [phone] Allergies Active Allergy Reactions Criticality Noted Date [...] Type Department Care Team Description 07/02/2024 Telephone [facility] Cardiology [address] [place] [address] Charly Lovell MD Med Refill [...] on file Legal Sex Male 10:15 AM INTERMEDIATE TEACHER Gender Identity Male 08/27/2019 10:41 AM CDT Sexual Orientation Straight 08/27/2019 10 :41 AM CDT Obstetrics History Last Filed Vital Signs Vital Sign Reading Time Taken Comments Blood Pressure 146/68 04/03/2024 11:01 AM INTERMEDIATE TEACHER Pulse 64 04/03/2024 11:01 AM INTERMEDIATE TEACHER Temperature 36.8 C (98.2 F) 12/23/2020 2:53 PM CDT Respiratory Rate 16 04/16/2021 4:34 PM INTERMEDIATE TEACHER Oxygen Saturation 96% 04/03/2024 11:01 AM INTERMEDIATE TEACHER Inhaled Oxygen Concentration - - Weight 84.4 kg (186 lb) 04/03/2024 11:01 AM INTERMEDIATE TEACHER Height 170.2 cm (5' 7 ) 04/03/2024 11:01 AM INTERMEDIATE TEACHER Body Mass Index 29.13 04/03/2024 11:01 AM INTERMEDIATE TEACHER Plan of Treatment Health Maintenance Due Date Last Done Comments Depression Screening 1938 Fall Risk Assessment 1938 Hepatitis B Screening 1956 Zoster Vaccine (1 of 2) 1988 Well Visit 65+ 12/07/2003 Influenza Vaccine (#1) 2024 9, 03/08/2018, 04/04/2016, Additional history exists DTaP/Tdap/Td Vaccine (2 - Td or Tdap) 09/19/2028 09/19/2018 Pneumococcal vaccine 65+ Completed 03/29/2019, 02/27 Insurance MEDICARE [facility] [place] [address] [place] [address] [facility] MEDICARE [facility] Care Teams Ingredient Specialist Relationship Specialty Start Date End Date Lokesh Doll MD PCP - General Family Medicine 12/27/18
--- OUTSIDE RECORDS SUMMARY | 2024-09-05 13:55 | XMS_ITS | Clinical Summary ---
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 Gender Identity Not on file Sexual Orientation [...] - 2023-2 5 season) 2024 08/27/2020, 07/29/2020 Meningococcal B Vaccine Aged Out No l onger eligible based on patient's age to complete this topic Meningococcal Vaccine Aged Out No zhou robinson eligible based on patient's age to complete this topic RSV Immunizations Under 20 Months Aged Out No longer eligible b ased on patient's age to complete this topic Insurance [facility]AD MEDICARE Care Teams Director Manufacturing Engineering Relationship Specialty Start Date End Date Lokesh Doll MD [address] [place] [address] PCP - General FAMILY PRACTICE 12/23/20
--- OUTSIDE RECORDS SUMMARY | 2024-09-05 13:55 | XMS_ITS | Encounter Summary ---
Author Organization [facility] Healthcare Address [address] [place] [address] Care Team Providers Care Documentation Supervisor Name Role Phone Lokesh Doll MD Primary Care Provider [phone] Encounter Details Date Type Department Care Team (Late st Contact Info) Description 04/13/2021 Telephone [facility] [address] [place] [address] Fanny Ellis, RT Social History Tobacco Use Types Packs/Day Years Used Date Smoking Tobacco: Former Cigarettes Q uit: 2001 Smokeless Tobacco: Former Alcohol Use Standard Drinks/Week Comments Not Currently 0 (1 standard drink = 0.6 oz pur e alcohol) Sex and Gender Information Value Date Recorded Sex Assigned at Not on file Legal Sex Male 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
--- OUTSIDE RECORDS SUMMARY | 2024-09-05 13:55 | XMS_ITS | Clinical Summary ---
Author Organization [facility] Address [address] [place] [address] Care Team Providers Care Second Floor Operator Name Role Phone Lokesh Doll MD Primary Care Provider [phone] Source Comments [facility],non-owned Affiliates and Associated Physician Practices is amultiple site organization consisting of ambulatory clinics and hospital sitesin [place], [place] and [place]. This disclosure is being madepursuant to the Care Everywhere program and may not contain all information available regarding this patient. Last updated 18.[facility] Allergies No known active allergies Medications * [...] - 1-dose 75+ series) 2013 COVID-19 VACCINE ( - 2023-2 5 season) 2024 DEPRESSION SCREENING 05/30/2024 INFLUENZA VACCINE (Season Ended) 2025 HEPATITIS B VACCINE Aged Out No longe [...] ionNo Intubation, No Invasive Ventilation Care Teams Second Floor Operator Relationship Specialty Start Date End Date Lokesh Doll MD [address] [place] [address] PCP - General 01/11/21
== END 2024-09-05 12:46 | disposition home or self-care (01) ==
PROVIDERS: PCP Family Medicine
DX: D72.829 Elevated white blood cell count, unspecified (principal)
CPT/HCPCS: 36415; 85025

== ENCOUNTER 2024-09-10 09:43 | Outpatient (CLI) | payer MEDICARE, SELFPAY ==
[2024-09-10 10:27] LABS: Iron 75 ug/dL (49-181)
--- OUTSIDE RECORDS SUMMARY | 2024-09-10 10:34 | XMS_ITS | CONTINUITY OF CARE DOCUMENT ---
Author Name jose elsaerika Address Unknown Organization [facility] Address [address] [address] [place] [address] Phone [phone] Care Team Providers Care Suit Attendant Name Role Phone Reji WALL, Vianey Unavailable [...] In-person encounter Office Visit Vianey Mendoza MD [facility] - In-person encounter Office Visit Vianey Mendoza MD [facility] - In-person encounter Office Visit Vianey Mendoza MD [facility] - In-person encounter Office Visit Vianey Mendoza MD [facility] - In-person encounter Office Visit Vianey Mendoza MD [facility] - In-person encounter Office Visit Vianey Mendoza MD [facility] - In-person encounter Office Visit Vianey Mendoza MD [place] [facility] - In-person encounter Office Visit Vianey Mendoza MD [facility] - In-person encounter Office Visit Vianey Mendoza MD [facility] - In-person encounter Office Visit Vianey Mendoza MD [facility] - In-person encounter Office Visit Vianey Mendoza MD [facility] - In-person encounter Office Visit Vianey Mendoza MD [facility] CHFPALPITATIONS NL ECHO AND HOLTER HYPERTENSION, ESSENTIAL NL STRESS ,ECHO IN 06/07 - In-person encounter Office Visit Vianey Mendoza MD [facility] Office PALPITATIONS NL ECHO AND HOLTER EDEMASLEEP [...] beyeromar height E&M 67 [in_i] Zeny Ramos [facility] Body Mass Index (Ratio) 31.95 kg/m2 Bony [...] Normal Absolute Neutrophil count 3915 cells/mcL [employer] 2715-2787 Normal platelet count 299 THOUSAND/UL [employer] 140-400 [...] of grandchildren Vianey Mendoza MD T rachel Mendoaz MD physical exercise, f requency, days per [...] MD social history reviewed E&M reviewed Vianey Menodza MD social history reviewed E&M reviewed Vianey [...] Mood and affect are normal. 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 HISTORY Family Member Condition Mother Family History of Co ronary Artery Disease: INSURANCE PROVIDERS Payer name Policy type / Coverage type [place] red green party ID [facility] Vyatta insurance tuul [id number] [facility] Medicare [id number] ADVANCE DIRECTIVES Name Date DISCUSSED - NO [...] tab by mouth daily Orders: E KG (CPT-01815) BP today: 144/80 P rior BP: 130/80 (06/08/2012) Labs Reviewed: C reat: 0.88 (01/25/2009) Vianey Mendoza MD follow up: H is updated medication list for this problem includes: Aspirin 81 Mg Tabs (Aspirin) ..... One tab. daily Orders: E KG ([id number]) Vianey Mendoza MD follow up Vianey Mendoza [...] angina Orders: C OMPREHENSIVE METABOLIC PANEL W/EGFR (76175) T SH, 3RD GENERATION (899) Vianey Mendoza MD 6 MONTH F/U: O rders: B TYPE NATRIURETIC PEPTIDE (BNP) (69160) Vianey Mendoza MD 6 MONTH F/U Vianey Mendoza MD 6 MONTH F/U: H is updated medication list for this problem includes: Aspirin 81 Mg Tabs (Aspirin) ..... One tab. daily Avalide 150-12.5 Mg Tabs (Irbesartan-hydrochlorothiazide) ..... One tab. daily Orders: C BC (INCLUDES DIFF/PLT) (1299) Prior BP: 122/68 (09/20/2008) Vianey Mendoza MD [...] tatus EKG Vianey Mendoza MD completed SNOMED-CT: 63609489 Physical Exam, Performed: Pulse Exam of Foot Vianey Mendoza MD completed EKG Vianey Mendoza MD completed SNOMED-CT: [id number] [id number] Current Medications Documented Vianey Mendoza MD completed EKG Vianey Mendoza MD completed SNOMED-CT: [id number] 696581 Current Medications Documented Vianey Mendoza MD completed EKG Vianey Mendoza MD completed EKG Vianey Mendoza MD completed EKG Vianey Mendoza MD completed EKG Vianey Mendoza MD completed
--- OUTSIDE RECORDS SUMMARY | 2024-09-10 10:34 | XMS_ITS | Encounter Summary ---
Author Organization [facility] Address [address] [place] [address] Care Team Providers Care Sharepoint Administrator Name Role Phone Lokesh Doll MD Primary Care Provider [phone] Encounter Details Date Type Department Care Team (Late st Contact Info) Description 10/07/2021 Lab Requisition [facility] [address] [place] [address] [place] [address] Social History Tobacco Use Types Packs/Day Years Used Date Smoking Tobacco: Former Cigarettes 1 55 Smokeless Tobacco: Never Alcohol Use Standard Drinks/Week Comments Not Currently 0 (1 standard drink = 0.6 oz pur e alcohol) Sex and Gender Information Value Date Recorded Sex Assigned at Not on file Legal Sex Male 1:23 PM CDT Gender Identity Not on file Sexual Orientation Not on file documented as of this encounter Functional Status * Is person deaf or have serious hearing difficulty? Answer Date of Assessment Author Yes 01/20/2021 4:47 PM CDT Caryn Amaro RN * Is person blind or have serious difficulty seeing? Answer Date of Assessment Author No 01/20/2021 4:47 PM CDT Caryn Amaro RN * Does person have serious difficulty walking/climbing stairs? Answer Date of Assessment Author Yes 01/20/2021 4:47 PM CDT Caryn Amaro RN * Does person have difficulty dressing/bathing? Answer Date of Assessment Author Yes 01/20/2021 4:47 PM CDT Caryn Amaro RN * Does person have difficulty doing errands alone? Answer Date of Assessment Author Yes 01/20/2021 4:47 PM CDT Caryn Amaro RN documented as of this encounter Mental Status * Does person have difficulty concentrating/remembering/making decisions? Answer Entry Date Author Yes 01/20/2021 4:47 PM CDT Caryn Amaro RN documented in this encounter Plan of Treatment Not on file documented as of this encounter Procedures Procedure Name Priority Date/Time Associated Diagnosis Comments DERMATOPATHOLOGY Routine 10/06/2021 12:0 0 AM CDT documented in this encounter Results * DERMATOPATHOLOGY (10/06/2021 12:00 AM CDT) Case Report Dermatopathology Report Case: [id number] Authorizing Provider: Quan Moon MD Collected: 10/06/2021 12:00 AM Ordering Location: [facility] Received: 10/07/2021 12:13 PM Pathologist: Bernarda Alves MD Specimen: Skin, left lat flank 2 2:23 PM CDT DERMATOPATHOLOGY LABORATORY Final Diagnosis Specimen A. 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 2 2:23 PM CDT DERMATOPATHOLOGY LABORATORY Gross Description Specimen A: Received is one formalin filled container labeled with the patient's name and designated left lat flank. The specimen consists of a [id number] excision, submitted in multiple pieces. Jar 0. 2 2:23 PM CDT DERMATOPATHOLOGY LABORATORY Microscopic Description [...] characteristic determined by the Dermatopathology Laboratory at [facility], directed by Dr. Samm Roche. These tests need not be, and therefore are not, approved by the [place] Food and Drug Administration. The tests are used for clinical purposes. Billing Codes Specimen Charges Stain Charges 81668 1 2 2:23 PM CDT DERMATOPATHOLOGY LABORATORY Embedded Images 2 2:23 PM CDT DERMATOPATHOLOGY LABORATORY Pathology/Cytolog y TISSUE SPECIMEN FROM SKIN / Unknown 10/06/2021 10/07/2021 12:13 PM CDT Quan Moon MD LAB - PATHOLOGY/CYTOLOGY ORD ERABLES Final Result DERMATOPATHOLOGY LABORATORY [facility] Department of Dermatology [facility] Medicine [address] [place] [address], [address] [phone] documented in this encounter Visit Diagnoses Not on filedocumented in this encounter Care Teams Sharepoint Administrator Relationship Specialty Start Date End Date Lokesh Doll MD [address] [place] [id number] PCP - General 01/11/21 documented as of this encounter
--- OUTSIDE RECORDS SUMMARY | 2024-09-10 10:34 | XMS_ITS | Encounter Summary ---
Author Organization [facility] Address [address] [place] [address] Care Team Providers Care Scrap Materials Buyer Name Role Phone Lokesh Doll MD Primary Care Provider [phone] Encounter Details Date Type Department Care Team (Late st Contact Info) Description 04/13/2021 Telephone [facility] [address] [place] [address] Fanny Ellis, RT Social History Tobacco Use Types Packs/Day Years Used Date Smoking Tobacco: Former Cigarettes Q uit: 2001 Smokeless Tobacco: Former Alcohol Use Standard Drinks/Week Comments Not Currently 0 (1 standard drink = 0.6 oz pur e alcohol) Sex and Gender Information Value Date Recorded Sex Assigned at Not on file Legal Sex Male 10:15 AM DEAN OF STUDENT SERVICES Gender Identity Male 08/27/2019 10:41 AM CDT Sexual Orientation Straight 08/27/2019 10 :41 AM CDT documented as of this encounter Plan of Treatment Not on file documented as of this encounter Visit Diagnoses Not on filedocumented in this encounter Care Teams Scrap Materials Buyer Relationship Specialty Start Date End Date Lokesh Doll MD PCP - General Family Medicine 12/27/18 documented as of this encounter
--- OUTSIDE RECORDS SUMMARY | 2024-09-10 10:34 | XMS_ITS | Clinical Summary ---
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 Gender Identity Not on file Sexual Orientation Not on file Plan of Treatment Health Maintenance Due Date Last Done Comments DTaP, Tdap and Td Vaccines ( 1 - Tdap) 1957 Zoster Vaccines (1 of 2) 1988 Annual Medicare Wellness Visit 12/07/2003 RSV Immunization or 60+ Years (1 - 1-dose 75+ series) 2013 Pneumococcal Vaccine: 50+ Years (2 of 2 - PPSV23 or [...] patient's age to complete this topic Insurance [facility] MEDICARE Care Teams Fermentation Engineer Relationship Specialty Start Date End Date Lokesh Doll MD [address] [place] [address] PCP - General FAMILY PRACTICE 12/23/20
--- OUTSIDE RECORDS SUMMARY | 2024-09-10 10:34 | XMS_ITS | Encounter Summary ---
Author Organization [facility] Healthcare Address [address] [place] [address] Care Team Providers Care Bioprocess Engineer Name Role Phone Lokesh Doll MD Primary Care Provider [phone] Encounter Details Date Type Department Care Team (Late st Contact Info) Description 03/31/2021 Telephone [facility] [address] [place] [address] Pacheco Linder, RT Social History Tobacco Use Types Packs/Day Years Used Date Smoking Tobacco: Former Cigarettes Q uit: 2001 Smokeless Tobacco: Former Alcohol Use Standard Drinks/Week Comments Not Currently 0 (1 standard drink = 0.6 oz pur e alcohol) Sex and Gender Information Value Date Recorded Sex Assigned at Not on file Legal Sex Male 10:15 AM RADIOGRAPHER CARDIAC CATHETERIZATION Gender Identity Male 08/27/2019 10:41 AM CDT Sexual Orientation Straight 08/27/2019 10 :41 AM CDT documented as of this encounter Plan of Treatment Not on file documented as of this encounter Visit Diagnoses Not on filedocumented in this encounter Care Teams Bioprocess Engineer Relationship Specialty Start Date End Date Lokesh Doll MD PCP - General Family Medicine 12/27/18 documented as of this encounter
--- OUTSIDE RECORDS SUMMARY | 2024-09-10 10:34 | XMS_ITS | Referral Summary ---
Author Organization [facility] [address] [facility] [address] Address [address] [place] [address] Care Team Providers Care Fashion Show Director Name Role Phone Lokesh Doll MD Primary Care Provider Encounters Date Type Department Care Team Description 07/02/2024 Telephone [facility] Cardiology [address] [place] [address] Charly Lovell MD Med Refill [...] on file Legal Sex Male 10:15 AM SENIOR GEOLOGIST Gender Identity Male 08/27/2019 10:41 AM CDT Sexual Orientation Straight 08/27/2019 10 :41 AM CDT Last Filed Vital Signs Vital Sign Reading Time Taken Comments Blood Pressure 146/68 04/03/2024 11:01 AM SENIOR GEOLOGIST Pulse 64 04/03/2024 11:01 AM SENIOR GEOLOGIST Temperature 36.8 C (98.2 F) 12/23/2020 2:53 PM CDT Respiratory Rate 16 04/16/2021 4:34 PM SENIOR GEOLOGIST Oxygen Saturation 96% 04/03/2024 11:01 AM SENIOR GEOLOGIST Inhaled Oxygen Concentration - - Weight 84.4 kg (186 lb) 04/03/2024 11:01 AM SENIOR GEOLOGIST Height 170.2 cm (5' 7 ) 04/03/2024 11:01 AM SENIOR GEOLOGIST Body Mass Index 29.13 04/03/2024 11:01 AM SENIOR GEOLOGIST Plan of Treatment Not on file Insurance MEDICARE [employer] [facility] [place] [address] [facility] Care Teams Fashion Show Director Relationship Specialty Start Date End Date Lokesh Doll MD PCP - General Family Medicine 12/27/18
--- OUTSIDE RECORDS SUMMARY | 2024-09-10 10:34 | XMS_ITS | Clinical Summary ---
Author Organization [facility] Address [address] [place] [address] Care Team Providers Care Pattern Maker Name Role Phone Lokesh Doll Primary Care Provider [phone] Social History Tobacco Use Types Packs/Day Years Used Date Smoking Tobacco: Never Assessed Sex and Gender Information Value Date Recorded Sex Assigned at Not on file Legal Sex Male 3:54 PM EDT Gender Identity Not on file Sexual Orientation Not on file Plan of Treatment Not on file Care Teams Pattern Maker Relationship Specialty Start Date End Date Lokesh Doll [address] [place] [id number] PCP - General 01/16/21
--- OUTSIDE RECORDS SUMMARY | 2024-09-10 10:34 | XMS_ITS | Clinical Summary ---
Author Organization [facility] Address [address] [facility] [place] [address] Care Team Providers Care Archeologist Name Role Phone Lokesh Doll MD Primary Care Provider [phone] Source Comments [facility],non-owned Affiliates and Associated Physician Practices is amultiple site organization consisting of ambulatory clinics and hospital sitesin [place], [place], [place] and [place]. This disclosure is being madepursuant to the Care Everywhere program and may not contain all information available regarding this patient. Last updated 18.[facility] Allergies No known active allergies Medications * Be aware that medications may not be up to date on this document. Alwaysverify current medications with the patient. aspirin EC (ECOTRIN) 81 MG tablet Take 81 mg by mouth once daily Active brimonidine-kulwinder olol (COMBIGAN) 0.2-0.5 % ophthalmic solution 1 drop 2 times daily Active citalopram (CELEXA) 20 MG tablet Take 20 mg by mouth once daily Active fexofenadine (FEDE ALLERGY) 180 MG tablet Take 180 mg by mouth once daily Active furosemide (LASIX) 40 MG tablet Take 40 mg by mouth once daily Active gabapentin (NEURONTIN) 300 MG capsule Take 300 mg by mouth once daily Active glucosamine-cho ndroitin (GLUCOSAMINE CHONDR COMPLEX) 500-400 MG capsule Take 1 capsule by mouth once daily Active tamsulosin (FLOMAX) 0.4 MG capsule Take 0.4 mg by mouth once daily At the same time every day after a meal. Active budesonide-form oterol (SYMBICORT) 160-4.5 MCG/ACT inhaler Inhale 2 (two) puffs by mouth 2 times daily 1 Active apixaban (ELIQUIS) 5 MG tablet Take 1 (one) tablet by mouth 2 times daily 1 Active atorvastatin (LIPITOR) 20 MG tablet Take 1 (one) tablet by mouth at bedtime 1 Active multivitamins (ONE A DAY) capsule Take 1 capsule by mouth once daily Active acetaminophen (TYLENOL) 325 MG tablet Take 2 (two) tablets by mouth every 6 hours as needed for Fever or Pain 1 Active albuterol HFA (PROVENTIL;VENT ESTEFANÍA;PROAIR) 108 (90 Base) MCG/ACT inhaler Inhale 2 (two) puffs by mouth every 4 hours as needed for Shortness of Breath or Wheezing 1 Active metoprolol succinate XL 24hr (TOPROL XL) 200 MG tablet Take 1 (one) tablet by mouth once daily 1 Active digoxin (LANOXIN) 0.125 MG tablet Take 1 (one) tablet by mouth once daily 1 Active polyethylene glycol 3350 (MIRALAX) 17 g packet Take 17 (seventeen) g by mouth once daily as needed for Constipation 1 Active docusate sodium (COLACE) 100 MG capsule Take 1 (one) capsule by mouth once daily 1 Active Active Problems Problem Noted Date Diagnosed [...] (COVID -19) 08/05/2020 NSVT (nonsustained ventricular tachycardia) 0410/2019 COPD (chronic obstructive pulmonary disease) 05/2018 HTN [...] patient's age to complete this topic Insurance MEDICARE COMMERCIAL GENERIC MEDICARE Advance Directives * LIMITED RESUSCITATION-PRIOR AND AFTER ARREST (Latest Code Status on File) Date Activated Date Inactivated Comments 01/10/2021 11:48 AM 01/20/2021 9:17 PM Question Answer Comments Limited Resuscitation: No Chest Compress ionNo Intubation, No Invasive Ventilation Care Teams Archeologist Relationship Specialty Start Date End Date Lokesh Doll MD [address] [place] [address] PCP - General 01/11/21
--- OUTSIDE RECORDS SUMMARY | 2024-09-10 10:34 | XMS_ITS | Clinical Summary ---
Author Organization [facility] [address] Address [address] [place] [address] Care Team Providers Care Wire Drawing Machine Tender Name Role Phone Lokesh Doll MD Primary Care Provider [phone] Allergies Active Allergy Reactions Criticality Noted Date [...] Type Department Care Team Description 07/02/2024 Telephone [facility] Cardiology [address] [place] [address] Charly Lovell MD Med Refill [...] on file Legal Sex Male 10:15 AM AGRICULTURAL EDUCATION PROFESSOR Gender Identity Male 08/27/2019 10:41 AM CDT Sexual Orientation Straight 08/27/2019 10 :41 AM CDT Obstetrics History Last Filed Vital Signs Vital Sign Reading Time Taken Comments Blood Pressure 146/68 04/03/2024 11:01 AM AGRICULTURAL EDUCATION PROFESSOR Pulse 64 04/03/2024 11:01 AM AGRICULTURAL EDUCATION PROFESSOR Temperature 36.8 C (98.2 F) 12/23/2020 2:53 PM CDT Respiratory Rate 16 04/16/2021 4:34 PM AGRICULTURAL EDUCATION PROFESSOR Oxygen Saturation 96% 04/03/2024 11:01 AM AGRICULTURAL EDUCATION PROFESSOR Inhaled Oxygen Concentration - - Weight 84.4 kg (186 lb) 04/03/2024 11:01 AM AGRICULTURAL EDUCATION PROFESSOR Height 170.2 cm (5' 7 ) 04/03/2024 11:01 AM AGRICULTURAL EDUCATION PROFESSOR Body Mass Index 29.13 04/03/2024 11:01 AM AGRICULTURAL EDUCATION PROFESSOR Plan of Treatment Health Maintenance Due Date Last Done Comments Depression Screening 1938 Fall Risk Assessment 1938 Hepatitis B Screening 1956 Zoster Vaccine (1 of 2) 1988 Well Visit 65+ 12/07/2003 Influenza Vaccine (Season Ended) 2025 03/29/2019, 03/08/2018, 04/04/2016, Additional history exists DTaP/Tdap/Td Vaccine (2 - Td or Tdap) 09/19/2028 09/19/2018 Pneumococcal vaccine 65+ Completed 03/29/2019, 02/27 [facility] [place] [address] [facility]ICARE [facility] Care Teams Wire Drawing Machine Tender Relationship Specialty Start Date End Date Lokesh Doll MD PCP - General Family Medicine 12/27/18
--- OUTSIDE RECORDS SUMMARY | 2024-09-10 10:34 | XMS_ITS ---
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 Past Treatment and Therapy Plans No past plan information found. Lifetime Dose Tracking * Chemical Lifetime Dose Automatic Entry Manual Entr y Dose Length Product 2,623.9 mGy-cm 2,623.9 mGy-cm 0 mG y-cm
[2024-09-10 10:36] LABS: Percent Iron Saturation 23 % (20-50)
[2024-09-10 11:38] LABS: Folic Acid > 20.0 ng/mL (2.76->20); Vitamin B12 > 1000.0 pg/mL (239-931)
== END 2024-09-10 09:44 | disposition home or self-care (01) ==
PROVIDERS: PCP Family Medicine; Visit Provider Nurse Practitioner Family
DX: D64.9 Anemia, unspecified (principal)
CPT/HCPCS: 36415; 82607; 82746; 83540; 83550

== ENCOUNTER 2024-10-04 11:01 | Outpatient (CLI) | payer MEDICARE, SELFPAY ==
--- OUTSIDE RECORDS SUMMARY | 2024-10-04 11:14 | XMS_ITS | Referral Summary ---
Author Organization 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 HAND Gender Identity Male 08/27/2019 10:41 AM CDT Sexual Orientation Straight 08/27/2019 10 :41 AM CDT Last Filed Vital Signs Vital Sign Reading Time Taken Comments Blood Pressure 146/68 04/03/2024 11:01 AM MEXICAN FOOD MAKER HAND Pulse 64 04/03/2024 11:01 AM MEXICAN FOOD MAKER HAND Temperature 36.8 C (98.2 F) 12/23/2020 2:53 PM CDT Respiratory Rate 16 04/16/2021 4:34 PM MEXICAN FOOD MAKER HAND Oxygen Saturation 96% 04/03/2024 11:01 AM MEXICAN FOOD MAKER HAND Inhaled Oxygen Concentration - - Weight 84.4 kg (186 lb) 04/03/2024 11:01 AM MEXICAN FOOD MAKER HAND Height 170.2 cm (5' 7 ) 04/03/2024 11:01 AM MEXICAN FOOD MAKER HAND Body Mass Index 29.13 04/03/2024 11:01 AM MEXICAN FOOD MAKER HAND Plan of Treatment Not on file Insurance MEDICARE RAILROAD [facility] MEDICARE RAILROAD MEDICARE [facility] MEDICARE SUPPLEMENT Care Teams Upsetter Setter Up Relationship Specialty Start Date End Date Lokesh Doll MD PCP - General Family Medicine 12/27/18
--- OUTSIDE RECORDS SUMMARY | 2024-10-04 11:14 | XMS_ITS | Encounter Summary ---
Author Organization [facility] Healthcare Address [address] [place] [address] Care Team Providers Care Driller Helper Name Role Phone Lokesh Doll MD Primary Care Provider [phone] Encounter Details Date Type Department Care Team (Late st Contact Info) Description 03/31/2021 Telephone [facility] [address] [place] [address] Pacheco Linder, RT Social History Tobacco Use Types Packs/Day Years Used Date Smoking Tobacco: Former Cigarettes Q uit: 2001 Smokeless Tobacco: Former Alcohol Use Standard Drinks/Week Comments Not Currently 0 (1 standard drink = 0.6 oz pur e alcohol) Sex and Gender Information Value Date Recorded Sex Assigned at Not on file Legal Sex Male 10:15 AM CHROME TANNING DRUM OPERATOR Gender Identity Male 08/27/2019 10:41 AM CDT Sexual Orientation Straight 08/27/2019 10 :41 AM CDT documented as of this encounter Plan of Treatment Not on file documented as of this encounter Visit Diagnoses Not on filedocumented in this encounter Care Teams Driller Helper Relationship Specialty Start Date End Date Lokesh Doll MD PCP - General Family Medicine 12/27/18 documented as of this encounter
--- OUTSIDE RECORDS SUMMARY | 2024-10-04 11:14 | XMS_ITS | Clinical Summary ---
Author Organization [facility] Address [address] [facility] [place] [address] Care Team Providers Care Web Ui Software Engineer Name Role Phone Lokesh Doll MD Primary Care Provider [phone] Source Comments [facility],non-owned Affiliates and Associated Physician Practices is amultiple site organization consisting of ambulatory clinics and hospital sitesin [place], [place], [place]. This disclosure is being madepursuant to the Care Everywhere program and may not contain all information available regarding this patient. Last updated 18.[facility] Allergies No known active allergies Medications * [...] ionNo Intubation, No Invasive Ventilation Care Teams Web Ui Software Engineer Relationship Specialty Start Date End Date Lokesh Doll MD [address] [place] [address] PCP - General 01/11/21
--- OUTSIDE RECORDS SUMMARY | 2024-10-04 11:14 | XMS_ITS ---
Author Organization [facility] Address [address] [facility] [place] [address] Care Team Providers Care Slicing Machine Operator/Tender Name Role Phone Lokesh Doll MD Primary Care Provider [phone] Active Problems Problem Noted Date Diagnosed Date [...]
--- OUTSIDE RECORDS SUMMARY | 2024-10-04 11:14 | XMS_ITS | Clinical Summary ---
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 Gender Identity Male 08/27/2019 10:41 AM CDT Sexual Orientation Straight 08/27/2019 10 :41 AM CDT Obstetrics History Last Filed Vital Signs Vital Sign Reading Time Taken Comments Blood Pressure 146/68 04/03/2024 11:01 AM PRODUCT SAFETY OFFICER Pulse 64 04/03/2024 11:01 AM PRODUCT SAFETY OFFICER Temperature 36.8 C (98.2 F) 12/23/2020 2:53 PM CDT Respiratory Rate 16 04/16/2021 4:34 PM PRODUCT SAFETY OFFICER Oxygen Saturation 96% 04/03/2024 11:01 AM PRODUCT SAFETY OFFICER Inhaled Oxygen Concentration - - Weight 84.4 kg (186 lb) 04/03/2024 11:01 AM PRODUCT SAFETY OFFICER Height 170.2 cm (5' 7 ) 04/03/2024 11:01 AM PRODUCT SAFETY OFFICER Body Mass Index 29.13 04/03/2024 11:01 AM PRODUCT SAFETY OFFICER Plan of Treatment Health Maintenance Due Date Last Done Comments Depression Screening 1938 Fall Risk Assessment 1938 Hepatitis B Screening 1956 Zoster Vaccine (1 of 2) 1988 Well Visit 65+ 12/07/2003 Influenza Vaccine (Season Ended) 2025 03/29/2019, 03/08/2018, 04/04/2016, Additional history exists DTaP/Tdap/Td Vaccine (2 - Td or Tdap) 09/19/2028 09/19/2018 Pneumococcal vaccine 65+ Completed 03/29/2019, 02/27 Insurance MEDICARE [facility] [place] RAILROAD MEDICARE RAILROAD BLUE CROSS MEDICARE SUPPLEMENT Care Teams Family Day Care Worker Relationship Specialty Start Date End Date Lokesh Doll MD PCP - General Family Medicine 12/27/18
--- OUTSIDE RECORDS SUMMARY | 2024-10-04 11:14 | XMS_ITS | Encounter Summary ---
Author Organization [facility] Address [address] [place] [address] Care Team Providers Care Umbrella Supervisor Name Role Phone Lokesh Doll MD Primary Care Provider [phone] Encounter Details Date Type Department Care Team (Late st Contact Info) Description 04/13/2021 Telephone [facility] [address] [place] [address] Fanny Ellis, RT Social History Tobacco Use Types Packs/Day Years Used Date Smoking Tobacco: Former Cigarettes Q uit: 2001 Smokeless Tobacco: Former Alcohol Use Standard Drinks/Week Comments Not Currently 0 (1 standard drink = 0.6 oz pur e alcohol) Sex and Gender Information Value Date Recorded Sex Assigned at Not on file 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
--- OUTSIDE RECORDS SUMMARY | 2024-10-04 11:14 | XMS_ITS | Encounter Summary ---
Author Organization [facility] Address [address] [facility] [place] [address] Care Team Providers Care Search Optimization Analyst Name Role Phone Lokesh Doll MD Primary Care Provider [phone] Encounter Details Date Type Department Care Team (Late st Contact Info) Description 10/07/2021 Lab Requisition [facility] [address] [place] [address] [place] [address] Social History Tobacco Use Types [...] AM CDT) Case Report Dermatopathology Report Case: [id number] Authorizing Provider: Quan Moon MD Collected: 10/06/2021 12:00 AM Ordering Location: [facility] Received: 10/07/2021 12:13 PM [...] lat flank. The specimen consists of a [id number] excision, submitted in multiple pieces. Jar 0. [...] characteristic determined by the Dermatopathology Laboratory at [facility], directed by Dr. Samm Roche. These tests need not be, and therefore are not, approved by the [place] Food and Drug Administration. The tests are used for clinical purposes. Billing Codes Specimen Charges Stain Charges 08565 1 2 2:23 PM CDT DERMATOPATHOLOGY LABORATORY Embedded Images 2 2:23 PM CDT DERMATOPATHOLOGY LABORATORY Pathology/Cytolog y TISSUE SPECIMEN FROM SKIN / Unknown 10/06/2021 10/07/2021 12:13 PM CDT Quan Moon MD LAB - PATHOLOGY/CYTOLOGY ORD ERABLES Final Result DERMATOPATHOLOGY LABORATORY [facility] Department of Dermatology [facility] Medicine [address] [place] [address], [address] [phone] documented in this encounter Visit Diagnoses Not on filedocumented in this encounter Care Teams Search Optimization Analyst Relationship Specialty Start Date End Date Lokesh Doll MD [address] [place] [id number] PCP - General 01/11/21 documented as of this encounter
--- OUTSIDE RECORDS SUMMARY | 2024-10-04 11:14 | XMS_ITS | Clinical Summary ---
Author Organization 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 Gender Identity Not on file Sexual Orientation Not on file Plan of Treatment Health Maintenance Due Date Last Done Comments DTaP, Tdap and Td Vaccines ( 1 - Tdap) 1957 Zoster Vaccines (1 of 2) 1988 Annual Medicare Wellness Visit 12/07/2003 RSV Immunization or 60+ Years (1 - 1-dose 75+ series) 2013 Pneumococcal Vaccine: 50+ Years (2 of 2 - PPSV23) 03/08/2019 03/08/2018 COVID-19 Vaccine (2023-2 5 season) 2024 08/27/2020, 07/29/2020 Meningococcal B Vaccine Aged Out No l onger eligible based on patient's age to complete this topic Meningococcal Vaccine Aged Out No zhou robinson eligible based on patient's age to complete this topic RSV Immunizations Under 20 Months Aged Out No longer eligible b ased on patient's age to complete this topic Insurance [facility] RAILROAD MEDICARE Care Teams Guest Relation Officer Relationship Specialty Start Date End Date Lokesh Doll MD [address] [address] PCP - General FAMILY PRACTICE 12/23/20
--- OUTSIDE RECORDS SUMMARY | 2024-10-04 11:14 | XMS_ITS | Clinical Summary ---
Author Organization [facility] Address [address] [place] [address] Care Team Providers Care Supervisor Fishing Name Role Phone Lokesh Doll Primary Care Provider [phone] Social History Tobacco Use Types Packs/Day Years Used Date Smoking Tobacco: Never Assessed Sex and Gender Information Value Date Recorded Sex Assigned at Not on file Legal Sex Male 3:54 PM EDT Gender Identity Not on file Sexual Orientation Not on file Plan of Treatment Not on file Care Teams Supervisor Fishing Relationship Specialty Start Date End Date Lokesh Doll [address] [place] [id number] PCP - General 01/16/21
--- OUTSIDE RECORDS SUMMARY | 2024-10-04 11:15 | XMS_ITS | CONTINUITY OF CARE DOCUMENT ---
Author Name jose elsaerika Address Unknown Organization [facility] Address [address] [facility] [address] [place] [address] Phone [phone] Care Team Providers Care Filter Screen Cleaner Name Role Phone Reij WALL, Vianey Unavailable DANIEL WALL, YANDEL F Unavailable [phone] DANIEL WALL, YANDEL F Unavailable PROBLEMS Condition Status Date Provider Notes PALPITATIONS NL ECHO AND HOL TER active Vianey Mendoza MD EDEMA active Vianey Mendoza MD SLEEP APNEA-ON CPAP active ? Vianey Mendoza MD HYPERTENSION, ESSENTIAL NL STRESS ,ECHO IN 06/07 active Vianey Mendoza MD BLADDER CANCER active ? Vianey Mendoza MD CHF completed - Vianey Mendoza MD ENCOUNTERS Date Type Provider Location Encounter Diag nosis - In-person encounter Office Visit Vianey Mendoza MD [place] - In-person encounter Office Visit Vianey Mendoza MD [facility] - In-person encounter Office Visit Vianey Mendoza MD [facility] - In-person encounter Office Visit Vianey Mendoza MD [facility] [facility] - In-person encounter Office Visit Vianey Mendoza MD [facility] - In-person encounter Office Visit Vianey Mendoza MD [facility] - In-person encounter Office Visit Vianey Mendoza MD [place] - In-person encounter Office Visit Vianey Mendoza MD [place] - In-person encounter Office Visit Vianey Mendoza MD [place] [facility] - In-person encounter Office Visit Vianey Mendoza MD [facility] - In-person encounter Office Visit Vianey Mendoza MD [place] - In-person encounter Office Visit Vianey Mendoza MD [place] CHFPALPITATIONS NL ECHO AND HOLTER HYPERTENSION, ESSENTIAL NL STRESS ,ECHO IN 06/07 - In-person encounter Office Visit Vianey Mendoza MD [facility] PALPITATIONS NL ECHO AND HOLTER EDEMASLEEP [...] beyeromar height E&M 67 [in_i] Zeny Ramos [facility] Body Mass Index (Ratio) 31.95 kg/m2 Bony [...] Normal Absolute Neutrophil count 3915 cells/mcL [employer] [id number] Normal platelet count 299 THOUSAND/UL [employer] 140-400 [...] social history E&M Marital Statu s: L rahcel with family/friends E thnicity: J ob Status: Retired Mira Walter RN physical exercise, f requency, days per week no Mira Walter RN drug use none Mira chew RN social history reviewed E&M reviewed Mira Walter RN caffeine use, averag e drinks per day yes [facility] alcohol use, average drinks per day none [facility] number of years as a smoker 10 years or m ore [facility] smoking status Quit [facility] MENTAL STATUS Date Observation Value Provider assessment [...] Mood and affect are normal. Mira Walter TUGBOAT DISPATCHER HISTORY Family Member Condition Mother Family History of Co ronary Artery Disease: INSURANCE PROVIDERS Payer name Policy type / Coverage type Laurel red republican ID [facility] [employer] insurance [employer] [id number] [employer] MEDICARE Medicare [id number] ADVANCE DIRECTIVES Name Date DISCUSSED - NO [...] tab by mouth daily Orders: E KG (CPT-[id number]) BP today: 144/80 P rior BP: 130/80 (06/08/2012) Labs Reviewed: C reat: 0.88 (01/25/2009) Vianey Mendoza MD follow up: H is updated medication list for this problem includes: Aspirin 81 Mg Tabs (Aspirin) ..... One tab. daily Orders: E KG (CPT-[id number]) Vianey Mendoza MD follow up Vianey Mendoza [...] angina Orders: C OMPREHENSIVE METABOLIC PANEL W/EGFR (58945) T SH, 3RD GENERATION (899) Vianey Mendoza MD 6 MONTH F/U: O rders: B TYPE NATRIURETIC PEPTIDE (BNP) (50591) Vianey Mendoza MD 6 MONTH F/U Vianey Mendoza MD 6 MONTH F/U: H is updated medication list for this problem includes: Aspirin 81 Mg Tabs (Aspirin) ..... One tab. daily Avalide 150-12.5 Mg Tabs (Irbesartan-hydrochlorothiazide) ..... One tab. daily Orders: C BC (INCLUDES DIFF/PLT) (9999) Prior BP: 122/68 (09/20/2008) Vianey Mendoza MD [...] tatus EKG Vianey Mendoza MD completed SNOMED-CT: [id number] Physical Exam, Performed: Pulse Exam of Foot Vianey Mendoza MD completed EKG Vianey Mendoza MD completed SNOMED-CT: [id number] Current Medications Documented Vianey Mendoza MD completed EKG Vianey Mendoza MD completed SNOMED-CT: [id number] Current Medications Documented Vianey Mendoza MD completed EKG Vianey Mendoza MD completed EKG Vianey Mendoza MD completed EKG Vianey Mendoza MD completed EKG Vianey Mendoza MD completed
[2024-10-04 13:24] LABS: Vitamin B12 > 1000.0 pg/mL (239-931)
== END 2024-10-04 11:02 | disposition home or self-care (01) ==
LOC: ANHLAB 11:02
PROVIDERS: PCP Family Medicine; Visit Provider Nurse Practitioner Family
DX: E53.8 Deficiency of other specified B group vitamins (principal)
CPT/HCPCS: 36415; 82607

== ENCOUNTER 2024-12-06 10:07 | Outpatient (CLI) | payer MEDICARE, SELFPAY ==
--- NOTE | ~2024-12-06 | US_ITS ---
EXAMINATION: US aorta [facility] DATE: 12/06/2024 16:35 CDT INDICATION: Family history of abdominal aortic aneurysm TECHNIQUE: Grayscale, color Doppler, and pulsed Doppler images of the aorta and common iliac arteries were obtained. Examination is markedly limited secondary to inability for acoustical windows along the midline of th e abdomen COMPARISON: 08/08/2023, CT examination of the abdomen and pelvis FINDINGS: The proximal aorta measures 1.7 by 1.9 cm The mid aorta measures 1.2 x 1.4 cm The distal aorta measures 1.3 x 1.5 cm The right common internal iliac artery measures 0.8 cm. The left common iliac artery measures 1.1 cm. IMPRESSION: No sonographic evidence of an abdominal aortic aneurysm, as detailed above. Reviewed, dictated and finalized at location A.
== END 2024-12-06 10:08 | disposition home or self-care (01) ==
LOC: MICIMG 10:08
PROVIDERS: PCP Family Medicine; Visit Provider Internal Medicine
DX: Z82.49 Family history of ischemic heart disease and other diseases of the circulatory system (principal)
CPT/HCPCS: 76706